=== PATIENT | female | born 1950 | race Caucasian/White ===

== ENCOUNTER 2023-04-15 17:21 | Inpatient (IN) ==
--- NOTE | 2023-04-15 18:02 | ED Triage Note ---
Date of Service April 15, 2023 Provider in Triage Author: Nancy Aponte History of Present Illness This patient was briefly evaluated while in triage. An abbreviated physical exam was performed. This patient is a 72-year-old Female who presents to the ED for evaluation of weakness. She states she has felt weak, lightheaded and dizzy. Her cousin states that she is not enunciating her words like usual. Symptoms started about 10 days ago. At that time she had collapsed and fallen. Her legs have been weak and she has a hard time walking. Physical Exam VITALS: Vitals are noted on the nurse's note and reviewed by myself. GENERAL: This is a 72-year-old female, sitting in a wheelchair in triage. HEART: Regular rate and rhythm without murmurs gallops or rubs. LUNGS: Clear to auscultation bilaterally without wheezes, rales or rhonchi. NEURO: Patient was alert and oriented to person place and time. Initial orders for labs and / or imaging were placed and patient was placed in the waiting area until a bed is available. Please see further documentation for the full ED course.
--- NOTE | 2023-04-15 18:58 | XRay Report ---
SINGLE VIEW CHEST CLINICAL HISTORY: Generalized weakness. FINDINGS: 2 AP upright chest radiographs are obtained. No prior studies are available for comparison at the time of dictation. The heart is enlarged noting atherosclerotic calcification of the thoracic aorta. The pulmonary vasculature is noncongested. There is mild bibasilar atelectasis. The lungs and pleural spaces are otherwise clear. No pneumothorax is seen. The skeletal structures are osteopenic. The bony thorax is grossly intact. IMPRESSION: Cardiomegaly with no active disease in the chest. ACT 112: Negative or not required by law. Electronically signed by: Alli Gibson M.D. 04/15/2023 6:57 PM
[2023-04-15 19:14] LABS: Basophils # (auto) 0.02 K/uL (0.00-0.20); Basophils % (auto) 0.3 %; Eosinophils # (auto) 0.08 K/uL (0.00-0.50); Eosinophils % (auto) 1.1 %; Hematocrit (blood only) 37.9 % (37.0-47.0); Hemoglobin 12.8 g/dl (12.0-16.0); Immature Granulocytes # (auto) 0.04 K/uL (0.01-0.20); Immature Granulocytes % (auto) 0.6 %; Lymphocytes # (auto) 1.04 K/uL (1.20-3.40); Lymphocytes % (auto) 14.9 %; Mean Corpuscular Hemoglobin 30.5 pg (25.0-34.0); Mean Corpuscular Hgb Conc 33.8 g/dL (32.0-36.0); Mean Corpuscular Volume 90.2 fL (80.0-100.0); Monocytes # (auto) 0.49 K/uL (0.11-0.59); Neutrophils # (auto) 5.32 K/uL (1.40-6.50); Neutrophils % (auto) 76.1 %; Platelet Count 180 K/uL (130-400); RDW Coefficient of Variation 12.9 % (11.5-14.5); RDW Standard Deviation 42.5 fL (36.4-46.3); White Blood Count 6.99 K/ul (4.8-10.8)
[2023-04-15 19:34] LABS: Alanine Aminotransferase 34 U/L (7-52); Albumin Globulin Ratio 1.2 (0.9-2); Albumin Level 4.1 gm/dl (3.4-5.0); Alkaline Phosphatase 91 U/L (34-104); Anion Gap 5 (3-11); Aspartate Aminotransferase 28 U/L (13-39); BUN Creatinine Ratio 56.5 (10-20); Bilirubin,Total 0.3 mg/dl (0.2-1.0); Blood Urea Nitrogen 26 mg/dl (6-23); Calcium 9.9 mg/dl (8.6-10.3); Carbon Dioxide 32 mmol/L (21-32); Chloride 103 mmol/L (98-107); Est GFR (African American) 115.2 ml/min; Est GFR (Non-African American) 99.4 ml/min; Globulin 3.4 gm/dl (2.5-4.0); Glucose 146 mg/dl (70-99(Fasting)); Potassium 4.1 mmol/L (3.5-5.1); Sodium 140 mmol/L (136-145); Total Protein 7.5 gm/dl (6.0-8.3)
--- NOTE | 2023-04-15 19:38 | CT Scan Report ---
CT SCAN OF THE BRAIN WITHOUT IV CONTRAST CLINICAL HISTORY: Generalized weakness. Slurred speech. COMPARISON STUDY: CT of the brain dated 06/29/2013. TECHNIQUE: Unenhanced axial CT scan of the brain is performed from the vertex to the skull base. A do se lowering technique was utilized adhering to the principles of ALARA. CT DOSE: 1250.21 mGy.cm FINDINGS: Brain parenchyma: Right MCA territory encephalomalacia is consistent with a remote insult. There is a ge-related involutional change noting mild subcortical and periventricular microangiopathic disease. There is no hemorrhage, mass effect, or evidence of acute territorial ischemia by CT criteria. Coon-w ally matter differentiation is preserved. No extra-axial fluid collection is seen. There is mineraliz ation of the basal ganglia. Ventricles, sulci, cisterns: Prominent secondary to involutional change. Intracranial vasculature: There is atherosclerotic calcification of the cavernous carotid and vertebr al arteries. Calvarium: Unremarkable. Sinuses and mastoids: There is complete opacification of the left sphenoid sinus. Thickening and scle rosis of the sinus wall indicates chronicity. The remaining visualized paranasal sinuses are clear. T he mastoid air cells are well pneumatized. Orbits: The bony orbits are grossly intact. There are bilateral ocular lens implants. IMPRESSION: 1. There is no hemorrhage, mass effect, or evidence of acute territorial ischemia by CT criteria. 2. Remote MCA territory infarct. ACT 112: Negative or not required by law. Electronically signed by: Alli Gibson M.D. 04/15/2023 7:35 PM
--- NOTE | 2023-04-15 19:42 | Emergency Department Note ---
Impression & Plan Weakness, Stroke-like symptom, Elevated troponin I level ED Provider Note NAME: MAXIMO KHAN AGE: 72 SEX: F : 1950 ARRIVES VIA: Walk-In INFORMANT: Patient, the patient's friend ED PROVIDER(S): Matheus Pino DO CHIEF COMPLAINT: Weakness HPI: The patient is a 72-year-old female who has a history of stroke who presented to the emergency department for an evaluation of generalized weakness. She has been noticing that she has been off balance. She seems to have weakness in her left arm which is new for her. She denies having any headache or falls. She denies having any chest pain or difficulty breathing at this time. The patient arrived via ambulance but she is visited by a friend who stays with her. According to the friend her speech does seem to be somewhat off. ROS: See above HPI for pertinent positives & negatives. A total of 10 systems reviewed and were otherwise negative. PAST MEDICAL HISTORY: See Below PAST SURGICAL HISTORY: See Below FAMILY HISTORY: See Below SOCIAL HISTORY: See Below HOME MEDICATIONS: See Below ALLERGIES: See Below VITALS: See Below PHYSICAL EXAMINATION: GENERAL: Patient is awake alert in no acute distress patient is resting comfortably and showing no signs of anxiety EYES: The conjunctivae are clear. The pupils are round and reactive. EARS, NOSE, MOUTH AND THROAT: The nose is without any evidence of any deformity. NECK: The neck is nontender and supple. RESPIRATORY: Normal respiratory effort is noted there is no evidence of wheezing rhonchi or rales CARDIOVASCULAR: Regular rate and rhythm noted there no murmurs rubs or gallops normal S1 normal S2. GASTROINTESTINAL: The abdomen is soft. Abdomen is nontender. MUSCULOSKELETAL/EXTREMITIES: There is no evidence of gross deformity full range of motion is noted in the hips and shoulders. SKIN: There is no obvious evidence of any rash. Pedal edema was noted bilaterally. NEUROLOGIC: Patient is awake alert and oriented x3. Speech was pressured but clear. Strength was symmetric but diminished in both legs. The patient has a drift in her left upper extremity but she does appear to have some chronic weakness in the right upper extremity with some spasticity. MEDICAL DECISION MAKING: The patient is a 72-year-old female who has a history of a stroke who presented to the emergency department with strokelike symptoms. She presented with a friend who was concerned because over the last week the patient's been having increasing difficulty ambulating. Because of her history she came to the emergency department for further workup. I discussed the patient's laboratory and radiographic studies with her. CT showed an old stroke but no acute intracranial pathology. Given her presentation as well as her previous stroke history and MRI was obtained. There is no definite signs of acute stroke noted on this imaging. The patient was found to have elevated troponin in the emergency department. This was repeated and appears to be elevating. She has no ischemic symptoms at this time. This may require further inpatient workup. For this reason I [facility] have agreed to evaluate the patient in the emergency department for further management and disposition. Triage Nursing notes reviewed. Prior medical records reviewed Vital Signs: reviewed and remarkable for elevated blood pressure. Differential diagnosis: Infection, dehydration, metabolic abnormality, hypo/hyperglycemia, electrolyte disturbance, anemia, hypoxia, cardiac sources, intracerebral event, toxicologic, neurologic, as well as other pathologies. ER treatment provided: See below Diagnostics interpreted by me: ECG: EKG was obtained in the emergency department. My interpretation is sinus rhythm at 58 bpm. There was a right bundle branch block pattern noted. There is no PVCs. This was compared to a tracing from June 29, 2013. No changes were noted. Cardiac Monitoring: An order was placed for continuous cardiac monitoring. The monitor shows a rate of 62 bpm with sinus rhythm. Laboratory studies: As stated above and show below. Imaging studies: See below. Radiographic imaging was reviewed by myself Consultation(s): I discussed this case with Dr. Alexandra who is [facility]. Past Med/Surg History Medical History CVA (cerebral vascular accident) Social History Smoking Status: Never smoker Preferred Language: Kazakh Feels Safe at Home: Yes Allergies Allergies Allergy/AdvReac Type Severity Reaction Status Date / Time No Known Allergies Allergy Verified 04/15/23 20:15 Home Meds Home Medications Medication Instructions Recorded Confirmed acetaminophen 325 mg tablet 650 mg PO Q4H PRN PAIN/FEVER 04/15/23 04/15/23 (Tylenol) aspirin 81 mg tablet,delayed 81 mg PO QAM 04/15/23 04/15/23 release levothyroxine 100 mcg tablet 100 mcg PO QAM 04/15/23 04/15/23 losartan 25 mg tablet 25 mg PO DAILY 04/15/23 04/15/23 omega-3 fatty acids 1,000 mg 1,000 mg PO BID 04/15/23 04/15/23 capsule simvastatin 20 mg tablet 20 mg PO HS 04/15/23 04/15/23 Results & Data (ED) Vital Signs Vital Signs - 24 hr 04/15/23 17:58 04/15/23 19:31 04/15/23 19:42 Temperature 30.0 C L Temperature Source Oral Pulse Rate 63 60 Pulse Rate [Apical] 62 Respiratory Rate 16 17 Respiratory Effort / Characteristics Non-Labored Spontaneous Respiratory Depth Normal Normal Blood Pressure 172/78 H Blood Pressure [Right Arm] 149/82 H Blood Pressure Mean 109 Blood Pressure Mean [Right Arm] 104 Blood Pressure Position [Right Arm] Semi-fowlers Pulse Oximetry 97 97 Oxygen Delivery Method Room Air Room Air Sepsis Recent Fever Within 48 Hours No Sepsis New/Unexplained Change in Mental Status No Sepsis Action Taken by Nursing No Action Required 04/15/23 21:00 04/15/23 23:26 Temperature Temperature Source Pulse Rate Pulse Rate [Apical] 55 L 62 Respiratory Rate 16 20 Respiratory Effort / Characteristics Respiratory Depth Normal Normal Blood Pressure Blood Pressure [Right Arm] 134/70 141/78 H Blood Pressure Mean Blood Pressure Mean [Right Arm] 91 99 Blood Pressure Position [Right Arm] Semi-fowlers Semi-fowlers Pulse Oximetry 99 98 Oxygen Delivery Method Room Air Room Air Sepsis Recent Fever Within 48 Hours Sepsis New/Unexplained Change in Mental Status Sepsis Action Taken by [facility] Medications Current Medication List: was personally reviewed by me Laboratory Data Attestation: I reviewed the patient's lab results. 04/15/23 18:30 04/15/23 18:30 Lab Results 04/15/23 04/15/23 04/15/23 Range/Units 18:30 19:25 22:02 WBC 6.99 (4.8-10.8) K/ul RBC 4.20 (4.20-5.40) M/uL Hgb 12.8 (12.0-16.0) g/dl Hct 37.9 (37.0-47.0) % MCV 90.2 (80.0-100.0) fL MCH 30.5 (25.0-34.0) pg MCHC 33.8 (32.0-36.0) g/dL RDW Std Deviation 42.5 (36.4-46.3) fL RDW Coeff of [place] 12.9 (11.5-14.5) % Plt Count 180 (130-400) K/uL MPV 10.0 (9.4-12.4) fL Immature Gran % (Auto) 0.6 % Neut % (Auto) 76.1 % Lymph % (Auto) 14.9 % Elbert % (Auto) 7.0 % Eos % (Auto) 1.1 % Baso % (Auto) 0.3 % Neut # (Auto) 5.32 (1.40-6.50) K/uL Lymph # (Auto) 1.04 L (1.20-3.40) K/uL Elbert # (Auto) 0.49 (0.11-0.59) K/uL Eos # (Auto) 0.08 (0.00-0.50) K/uL Baso # (Auto) 0.02 (0.00-0.20) K/uL Immature Gran # (Auto) 0.04 (0.01-0.20) K/uL Sodium 140 (136-145) mmol/L Potassium 4.1 (3.5-5.1) mmol/L Chloride 103 (98-107) mmol/L Carbon Dioxide 32 (21-32) mmol/L Anion Gap 5 (3-11) BUN 26 H (6-23) mg/dl Creatinine 0.46 L (0.6-1.2) mg/dl Est Cr Clr Drug Dosing Not Reportable Est GFR ( Amer) 115.2 ml/min Est GFR (Non-Af Amer) 99.4 ml/min BUN/Creatinine Ratio 56.5 H (10-20) Glucose 146 H (70-99(Fasting)) mg/dl Calcium 9.9 (8.6-10.3) mg/dl Total Bilirubin 0.3 (0.2-1.0) mg/dl AST 28 (13-39) U/L ALT 34 (7-52) U/L Alkaline Phosphatase 91 (34-104) U/L Troponin I High Sens 43.2 H 50.3 H* (0-14) pg/ml Total Protein 7.5 (6.0-8.3) gm/dl Albumin 4.1 (3.4-5.0) gm/dl Globulin 3.4 (2.5-4.0) gm/dl Albumin/Globulin Ratio 1.2 (0.9-2) Urine Color Yellow Urine Appearance Clear (Clear) Urine pH 6.0 (4.5-7.5) Ur Specific [place] 1.010 (1.000-1.030) Urine Protein Negative (Negative) Urine Glucose (UA) Negative (Negative) Urine Ketones Negative (Negative) Urine Blood Negative (Negative) Urine Nitrite Negative (Negative) Urine Bilirubin Negative (Negative) Urine Urobilinogen Negative (Negative) Ur Leukocyte Esterase Negative (Negative) Imaging Data Attestation: I personally reviewed and interpreted this imaging study as follows: My Impression: 1 view chest x-ray was obtained in the emergency department. My interpretation is no free air or definite infiltrate, final report below. CT of the brain was obtained in the emergency department. Previous stroke was noted with right-sided encephalomalacia, this was compared to her previous CT and the changes are new compared to the previous CT. Final report below Radiologist's Impression: Chest X-Ray 04/15/23 18:03 SINGLE VIEW CHEST CLINICAL HISTORY: Generalized weakness. FINDINGS: 2 AP upright chest radiographs are obtained. No prior studies are available for comparison at the time of dictation. The heart is enlarged noting atherosclerotic calcification of the thoracic aorta. The pulmonary vasculature is noncongested. There is mild bibasilar atelectasis. The lungs and pleural spaces are otherwise clear. No pneumothorax is seen. The skeletal structures are osteopenic. The bony thorax is grossly intact. IMPRESSION: Cardiomegaly with no active disease in the chest. ACT 112: Negative or not required by law. Electronically signed by: Alli Gibson M.D. 04/15/2023 6:[address] 04/15/23 18:03 CT SCAN OF THE BRAIN WITHOUT IV CONTRAST CLINICAL HISTORY: Generalized weakness. Slurred speech. COMPARISON STUDY: CT of the brain dated 06/29/2013. TECHNIQUE: Unenhanced axial CT scan of the brain is performed from the vertex to the skull base. A dose lowering technique was utilized adhering to the principles of ALARA. CT DOSE: 1250.21 mGy.cm FINDINGS: Brain parenchyma: Right MCA territory encephalomalacia is consistent with a remote insult. There is age-related involutional change noting mild subcortical and periventricular microangiopathic disease. There is no hemorrhage, mass effect, or evidence of acute territorial ischemia by CT criteria. Coon-white matter differentiation is preserved. No extra-axial fluid collection is seen. There is mineralization of the basal ganglia. Ventricles, sulci, cisterns: Prominent secondary to involutional change. Intracranial vasculature: There is atherosclerotic calcification of the cavernous carotid and vertebral arteries. Calvarium: Unremarkable. Sinuses and mastoids: There is complete opacification of the left sphenoid sinus. Thickening and sclerosis of the sinus wall indicates chronicity. The remaining visualized paranasal sinuses are clear. The mastoid air cells are well pneumatized. Orbits: The bony orbits are grossly intact. There are bilateral ocular lens implants. IMPRESSION: 1. There is no hemorrhage, mass effect, or evidence of acute territorial ischemia by CT criteria. 2. Remote MCA territory infarct. ACT 112: Negative or not required by law. Electronically signed by: Alli Gibson M.D. 04/15/2023 7:35 PM Brain MRI 04/15/23 21:38 MRI OF THE BRAIN WITHOUT IV CONTRAST CLINICAL HISTORY: Strokelike symptoms. Left-sided weakness. Change in speech. COMPARISON STUDY: CT of the brain dated 04/15/2023. TECHNIQUE: MRI of the brain was performed utilizing various T1 and T2-weighted sequences in the axial, sagittal, and coronal planes. IV contrast was not administered for this examination. FINDINGS: Brain parenchyma: Right MCA territory encephalomalacia is consistent with a remote infarct. There is age related involutional change noting mild subcortical and periventricular microangiopathic disease. There is no hemorrhage or mass effect. There is no restricted diffusion typical for acute ischemia. Coon-white matter differentiation is preserved. No extra-axial fluid collection is seen. The cerebellar tonsils are normal in configuration. Mineralization is noted in the basal ganglia. Ventricles, sulci, and cisterns: Prominent secondary to involutional change. Pituitary and sella: Partially empty sella is incidentally noted. Intracranial vasculature: Normal flow voids are maintained at the skull base. Orbits: The bony orbits are grossly intact. Orbital contents are normal in appearance noting bilateral ocular lens implants. Sinuses and mastoids: There is opacification of left sphenoid sinus. The remaining paranasal sinuses and the mastoid air cells are clear. Calvarium: Unremarkable. Cervical cord: Partially visualized cervical spinal cord is normal in morphology and signal intensity. IMPRESSION: Chronic changes as above with no acute intracranial abnormality identified. ACT 112: Negative or not required by law. Electronically signed by: Alli Gibson M.D. 04/15/2023 10:42 PM Discharge Plan Visit Data Chief Complaint: Weakness Stated Complaint: TROUBLE WALKING, LIGHTHEADED, WEAKNESS ED Provider: Matheus Pino Discharge Problem: Weakness, Stroke-like symptom, Elevated troponin I level Patient Disposition: Being Evaluated by Hospitalist Forms Stand Alone Forms: My [facility] Prescriptions Prescriptions: No Action acetaminophen [Tylenol] 325 mg Tablet 650 mg PO Q4H PRN (Reason: PAIN/FEVER) omega-3 fatty acids 1,000 mg Capsule 1,000 mg PO BID aspirin 81 mg tablet,delayed release (DR/EC) 81 mg PO QAM levothyroxine 100 mcg tablet 100 mcg PO QAM simvastatin 20 mg tablet 20 mg PO HS losartan 25 mg Tablet 25 mg PO DAILY Referrals Referrals: Bob Huynh [Primary Care Provider] -
[2023-04-15 19:48] LABS: Appearance Urine Clear (Clear); Bilirubin Urine Negative (Negative); Blood Urine Negative (Negative); Color Urine Yellow; Glucose Urine UA Negative (Negative); Ketones Urine Negative (Negative); Leukocyte Esterase Urine Negative (Negative); Nitrite Urine Negative (Negative); Protein Urine Negative (Negative); Urobilinogen Urine Negative (Negative)
[2023-04-15 20:48] LABS: Troponin I High Sensitivity 43.2 pg/ml (0-14)
--- NOTE | 2023-04-15 22:45 | Magnetic Resonance Report ---
MRI OF THE BRAIN WITHOUT IV CONTRAST CLINICAL HISTORY: Strokelike symptoms. Left-sided weakness. Change in speech. COMPARISON STUDY: CT of the brain dated 04/15/2023. TECHNIQUE: MRI of the brain was performed utilizing various T1 and T2-weighted sequences in the axial , sagittal, and coronal planes. IV contrast was not administered for this examination. FINDINGS: Brain parenchyma: Right MCA territory encephalomalacia is consistent with a remote infarct. There is age related involutional change noting mild subcortical and periventricular microangiopathic disease. There is no hemorrhage or mass effect. There is no restricted diffusion typical for acute ischemia. Coon-white matter differentiation is preserved. No extra-axial fluid collection is seen. The cerebell ar tonsils are normal in configuration. Mineralization is noted in the basal ganglia. Ventricles, sulci, and cisterns: Prominent secondary to involutional change. Pituitary and sella: Partially empty sella is incidentally noted. Intracranial vasculature: Normal flow voids are maintained at the skull base. Orbits: The bony orbits are grossly intact. Orbital contents are normal in appearance noting bilatera l ocular lens implants. Sinuses and mastoids: There is opacification of left sphenoid sinus. The remaining paranasal sinuses and the mastoid air cells are clear. Calvarium: Unremarkable. Cervical cord: Partially visualized cervical spinal cord is normal in morphology and signal intensity . IMPRESSION: Chronic changes as above with no acute intracranial abnormality identified. ACT 112: Negative or not required by law. Electronically signed by: Alli Gibson M.D. 04/15/2023 10:42 PM
[2023-04-16] MEDS ORDERED: POLYETHYLENE (MIRALAX) 17 GM PACK PO PRN (05:26)
[2023-04-16] MEDS ORDERED: PHARMACIST DISCHARGE MED REC CONSULT PRN (05:26)
[2023-04-16] MEDS ORDERED: ACETAMINOPHEN 325 MG TAB PO PRN (05:26)
[2023-04-16] MEDS ORDERED: NITROGLYCERIN SL 0.4 MG/TAB TAB SL PRN (05:26)
[2023-04-16] MEDS ORDERED: SODIUM CHLORIDE 0.9% 1,000 ML IV SCH (05:26)
--- NOTE | 2023-04-16 07:46 | History & Physical Report ---
Date of Service April 16, 2023 Assessment & Plan (1) Stroke-like symptom: Plan: 72-year-old female with past medical history significant for CVA, hypertension, hyperlipidemia, hypothyroidism comes because of weakness and not able to lift her right upper extremity for last few days. Arun Olsene she felt little dizzy and weak but that got improved. But again last few days having weakness and having difficulty lifting her right upper extremity. When she had a stroke she had weakness on the left side. She ambulates using cart. She thinks she was holding cart tightly with the right hand which is causing her current problem .denies any headache. Vision is okay. No runny nose or sore throat. No cough. No fevers. No chest pain or shortness of breath. No nausea. No abdominal pain. Normal bowel and bladder movements. Resting comfortably and h emodynamically stable. Right upper extremity weakness Ambulatory dysfunction CT head and MRI scan okay Consulted neurology for further recommendations PT OT Stroke protocol ordered History of CVA On aspirin and statin Hypothyroidism on Synthyroid Hypertension on losartan Lower EXTR edema Will follow echo Mild elevation of troponin Mostly demand ischemia Follow repeat cardiac enzymes and echo Prolonged QTc Avoid QT prolonging drugs Follow repeat EKG DVT prophylaxis SCDs for now Disposition Admission and Anticipated Discharge Date Admission Date: April 16, 2023 History of Present Illness Chief Complaint: Strokelike symptoms and weakness Primary Care Provider: Bob Huynh 72-year-old female with past medical history significant for CVA, hypertension, hyperlipidemia, hypothyroidism comes because of weakness and not able to lift her right upper extremity for last few days. Arun Wilkins she felt little dizzy and weak but that got improved. But again last few days having weakness and having difficulty lifting her right upper extremity. When she had a stroke she had weakness on the left side. She ambulates using cart. She thinks she was holding cart tightly with the right hand which is causing her current problem .denies any headache. Vision is okay. No runny nose or sore throat. No cough. No fevers. No chest pain or shortness of breath. No nausea. No abdominal pain. Normal bowel and bladder movements. Resting comfortably and hemodynamically stable. Past medical history. As mentioned above Past surgical history. Partial thyroidectomy. Ankle surgery. Cataracts Social history. No smoking. No alcohol use. No drug use. Family history. Mother had uterine cancer. Father had diabetes. Allergies Allergy/AdvReac Type Severity Reaction Status Date / Time No Known Allergies Allergy Verified 04/15/23 20:15 Home Medications Medication Instructions Recorded Confirmed Type acetaminophen 325 mg tablet 650 mg PO Q4H PRN PAIN/FEVER 04/15/23 04/15/23 History (Tylenol) aspirin 81 mg tablet,delayed 81 mg PO QAM 04/15/23 04/15/23 History release levothyroxine 100 mcg tablet 100 mcg PO QAM 04/15/23 04/15/23 History losartan 25 mg tablet 25 mg PO DAILY 04/15/23 04/15/23 History omega-3 fatty acids 1,000 mg 1,000 mg PO BID 04/15/23 04/15/23 History capsule simvastatin 20 mg tablet 20 mg PO HS 04/15/23 04/15/23 History Past Med/Surg History Medical History CVA (cerebral vascular accident) Social History Smoking Status: Never smoker Preferred Language: Lithuanian Feels Safe at Home: Yes Review of Systems Review of Systems: All systems reviewed & are unremarkable except as noted in HPI & below Physical Exam Physical Exam: General- Not in distress Head- atraumatic Eyes- PERRL, EOMI. ENT- oropharynx clear Neck- supple, no JVD. Lungs- clear to auscultation no wheezing or crackles. Heart- regular rhythm; Murmur in mitral area, no gallop. Abdomen- normal bowel sounds, soft, nontender, no distension Extremities- lower extremity edema present, no erythema seen Neuro- alert, oriented x 3; PERRL, EOMI; no facial palsy; no dysarthria; power 4/5 in right upper extremity 5/5 in left upper extremity, 3-4/5 in lower extremities.; sensations intact. Skin- warm & dry Results & Data Results & Data Vital Signs (Past 12 Hours) Vital Signs Pulse Pulse Resp BP Pulse Ox Pulse Ox O2 Del Method 04/16/23 07:05 62 04/16/23 06:00 54 L 16 105/58 L 97 Room Air 04/16/23 05:26 98 04/16/23 05:00 60 16 137/76 98 Room Air 04/16/23 03:32 97 Room Air 04/16/23 03:32 60 16 132/71 97 Room Air 04/16/23 03:32 62 04/16/23 01:00 58 L 18 149/86 H 97 Room Air 04/15/23 23:26 62 20 141/78 H 98 Room Air 04/15/23 21:00 55 L 16 134/70 99 Room Air 04/15/23 19:42 62 17 149/82 H 97 Room Air O2 Del Method O2 Flow Rate 04/16/23 07:05 04/16/23 06:00 04/16/23 05:26 Room Air 04/16/23 05:00 04/16/23 03:32 0 04/16/23 03:32 04/16/23 03:32 04/16/23 01:00 04/15/23 23:26 04/15/23 21:00 04/15/23 19:42 Diagnostic Findings Laboratory Results WBC 6.99 K/ul (4.8-10.8) 04/15/23 18:30 RBC 4.20 M/uL (4.20-5.40) 04/15/23 18:30 Hgb 12.8 g/dl (12.0-16.0) 04/15/23 18:30 Hct 37.9 % (37.0-47.0) 04/15/23 18:30 MCV 90.2 fL (80.0-100.0) 04/15/23 18:30 MCH 30.5 pg (25.0-34.0) 04/15/23 18:30 MCHC 33.8 g/dL (32.0-36.0) 04/15/23 18:30 RDW Std Deviation 42.5 fL (36.4-46.3) 04/15/23 18:30 RDW Coeff of [place]ul[place] 12.9 % (11.5-14.5) 04/15/23 18:30 Plt Count 180 K/uL (130-400) 04/15/23 18:30 MPV 10.0 fL (9.4-12.4) 04/15/23 18:30 Immature Gran % (Auto) 0.6 % 04/15/23 18:30 Neut % (Auto) 76.1 % 04/15/23 18:30 Lymph % (Auto) 14.9 % 04/15/23 18:30 Dunn % (Auto) 7.0 % 04/15/23 18:30 Eos % (Auto) 1.1 % 04/15/23 18:30 Baso % (Auto) 0.3 % 04/15/23 18:30 Neut # (Auto) 5.32 K/uL (1.40-6.50) 04/15/23 18:30 Lymph # (Auto) 1.04 K/uL (1.20-3.40) L 04/15/23 18:30 Dunn # (Auto) 0.49 K/uL (0.11-0.59) 04/15/23 18:30 Eos # (Auto) 0.08 K/uL (0.00-0.50) 04/15/23 18:30 Baso # (Auto) 0.02 K/uL (0.00-0.20) 04/15/23 18:30 Immature Gran # (Auto) 0.04 K/uL (0.01-0.20) 04/15/23 18:30 Sodium 140 mmol/L (136-145) 04/15/23 18:30 Potassium 4.1 mmol/L (3.5-5.1) 04/15/23 18:30 Chloride 103 mmol/L (98-107) 04/15/23 18:30 Carbon Dioxide 32 mmol/L (21-32) 04/15/23 18:30 Anion Gap 5 (3-11) 04/15/23 18:30 BUN 26 mg/dl (6-23) H 04/15/23 18:30 Creatinine 0.46 mg/dl (0.6-1.2) L 04/15/23 18:30 Est Cr Clr Drug Dosing Not Reportable 04/15/23 18:30 Est GFR ( Amer) 115.2 ml/min 04/15/23 18:30 Est GFR (Non-Af Amer) 99.4 ml/min 04/15/23 18:30 BUN/Creatinine Ratio 56.5 (10-20) H 04/15/23 18:30 Glucose 146 mg/dl (70-99(Fasting)) H 04/15/23 18:30 Calcium 9.9 mg/dl (8.6-10.3) 04/15/23 18:30 Total Bilirubin 0.3 mg/dl (0.2-1.0) 04/15/23 18:30 AST 28 U/L (13-39) 04/15/23 18:30 ALT 34 U/L (7-52) 04/15/23 18:30 Alkaline Phosphatase 91 U/L (34-104) 04/15/23 18:30 Troponin I High Sens 50.3 pg/ml (0-14) H* 04/15/23 22:02 Total Protein 7.5 gm/dl (6.0-8.3) 04/15/23 18:30 Albumin 4.1 gm/dl (3.4-5.0) 04/15/23 18: Globulin 3.4 gm/dl (2.5-4.0) 04/15/23 18: Albumin/Globulin Ratio 1.2 (0.9-2) 04/15/23 18:30 Urine Color Yellow 04/15/23 19:25 Urine Appearance Clear (Clear) 04/15/23 19:25 Urine pH 6.0 (4.5-7.5) 04/15/23 19:25 Ur Specific [place] 1.010 (1.000-1.030) 04/15/23 19:25 Urine Protein Negative (Negative) 04/15/23 19: Urine Glucose (UA) Negative (Negative) 04/15/23 19:25 Urine Ketones Negative (Negative) 04/15/23 19:25 Urine Blood Negative (Negative) 04/15/23 19:25 Urine Nitrite Negative (Negative) 04/15/23 19:25 Urine Bilirubin Negative (Negative) 04/15/23 19:25 Urine Urobilinogen Negative (Negative) 04/15/23 19:25 Ur Leukocyte Esterase Negative (Negative) 04/15/23 19:25 Impressions Chest X-Ray 04/15/23 18:03 SINGLE VIEW CHEST CLINICAL HISTORY: Generalized weakness. FINDINGS: 2 AP upright chest radiographs are obtained. No prior studies are available for comparison at the time of dictation. The heart is enlarged noting atherosclerotic calcification of the thoracic aorta. The pulmonary vasculature is noncongested. There is mild bibasilar atelectasis. The lungs and pleural spaces are otherwise clear. No pneumothorax is seen. The skeletal structures are osteopenic. The bony thorax is grossly intact. IMPRESSION: Cardiomegaly with no active disease in the chest. ACT 112: Negative or not required by law. Electronically signed by: Alli Gibson M.D. 04/15/2023 6:[address] 04/15/23 18:03 CT SCAN OF THE BRAIN WITHOUT IV CONTRAST CLINICAL HISTORY: Generalized weakness. Slurred speech. COMPARISON STUDY: CT of the brain dated 06/29/2013. TECHNIQUE: Unenhanced axial CT scan of the brain is performed from the vertex to the skull base. A dose lowering technique was utilized adhering to the principles of ALARA. CT DOSE: 1250.21 mGy.cm FINDINGS: Brain parenchyma: Right MCA territory encephalomalacia is consistent with a remote insult. There is age-related involutional change noting mild subcortical and periventricular microangiopathic disease. There is no hemorrhage, mass effect, or evidence of acute territorial ischemia by CT criteria. Coon-white matter differentiation is preserved. No extra-axial fluid collection is seen. There is mineralization of the basal ganglia. Ventricles, sulci, cisterns: Prominent secondary to involutional change. Intracranial vasculature: There is atherosclerotic calcification of the cavernous carotid and vertebral arteries. Calvarium: Unremarkable. Sinuses and mastoids: There is complete opacification of the left sphenoid sinus. Thickening and sclerosis of the sinus wall indicates chronicity. The remaining visualized paranasal sinuses are clear. The mastoid air cells are well pneumatized. Orbits: The bony orbits are grossly intact. There are bilateral ocular lens implants. IMPRESSION: 1. There is no hemorrhage, mass effect, or evidence of acute territorial ischemia by CT criteria. 2. Remote MCA territory infarct. ACT 112: Negative or not required by law. Electronically signed by: Alli Gibson M.D. 04/15/2023 7:35 PM Brain MRI 04/15/23 21:38 MRI OF THE BRAIN WITHOUT IV CONTRAST CLINICAL HISTORY: Strokelike symptoms. Left-sided weakness. Change in speech. COMPARISON STUDY: CT of the brain dated 04/15/2023. TECHNIQUE: MRI of the brain was performed utilizing various T1 and T2-weighted sequences in the axial, sagittal, and coronal planes. IV contrast was not administered for this examination. FINDINGS: Brain parenchyma: Right MCA territory encephalomalacia is consistent with a remote infarct. There is age related involutional change noting mild subcortical and periventricular microangiopathic disease. There is no hemorrhage or mass effect. There is no restricted diffusion typical for acute ischemia. Coon-white matter differentiation is preserved. No extra-axial fluid collection is seen. The cerebellar tonsils are normal in configuration. Mineralization is noted in the basal ganglia. Ventricles, sulci, and cisterns: Prominent secondary to involutional change. Pituitary and sella: Partially empty sella is incidentally noted. Intracranial vasculature: Normal flow voids are maintained at the skull base. Orbits: The bony orbits are grossly intact. Orbital contents are normal in appearance noting bilateral ocular lens implants. Sinuses and mastoids: There is opacification of left sphenoid sinus. The remaining paranasal sinuses and the mastoid air cells are clear. Calvarium: Unremarkable. Cervical cord: Partially visualized cervical spinal cord is normal in morphology and signal intensity. IMPRESSION: Chronic changes as above with no acute intracranial abnormality identified. ACT 112: Negative or not required by law. Electronically signed by: Alli Gibson M.D. 04/15/2023 10:42 PM ECG Additional Comments: ECG. Sinus bradycardia rate of 58. Right bundle branch block. QTc of 500. Code Status & VTE Plan VTE Prophylaxis Plan VTE Prophylaxis will be ordered: Yes
[2023-04-16] MEDS ORDERED: INFLUENZA VACCINE HIGH-DOSE (HD-IIV4) PF 65+ 0.7mL SYR IM ONE (07:54)
[2023-04-16] MEDS: LEVOTHYROXINE SODIUM 100 MCG TABLET PO SCH (07:55)
[2023-04-16] MEDS: ASPIRIN 81 MG ECTAB PO SCH (09:09)
--- NOTE | 2023-04-16 12:13 | Neurology Consultation ---
Date of Consultation April 16, 2023 Assessment & Plan (1) Axillary nerve injury: Pattern of weakness with first 20 deg weakness of deltoid suggests axillary nerve injury. She has extensive bruising of the axilla which would suggest a traumatic cause though there is no pain. Cervical spine cause without pain or radicular symptoms is less likely. -- Trauma evaluation, consider shoulder x-ray, consider cervical spine evaluation -- EMG in 6 weeks if weakness does not improve Telehealth Consultation Telehealth Information Telehealth Information: I performed this visit using a real-time telehealth connection between my location and the patients location ([facility]). After connecting through interactive tele-video, patient was identified by name and date of and/or wristband check.Patient (or authorized healthcare sales representative aircraft) was informed that this was a telemedicine visit and it was being conducted confidentially over secure lines. My office door was closed and no one else was present in the room with me.Patient (or authorized healthcare sales representative aircraft) provided consent to proceed with the visit, expressed an understanding of privacy and security of the telemedicine visit, and gave permission to have a hospital sales representative aircraft in the room in order to assist with the visit and to conduct portions of the visit, as needed. I informed the patient (or authorized healthcare sales representative aircraft) that I reviewed their record and presented the opportunity for them to ask any questions regarding the visit today. The patient agreed to participate. History of Present Illness Reason for Consultation: R arm weakness Requesting Physician: Dr. Howard Attending Physician: Jose Howard MD History of Present Illness Nadja Silva is a 72 yo F presenting with R arm weakness noticed a few days ago. The patient reports that she fell on but does not think she injured her arm. She reports using a shopping cart to walk around her home and thought that might have been what caused her arm to be weak. She was unaware she has bruising under her R arm and can not recall what that was from. She does have a history of a stroke in the past affecting her L side. She denies any pain in the R arm and no weakness of the hand. She otherwise does not recall dislocating the arm or any abnormal sleeping positions. Allergies Allergy/AdvReac Type Severity Reaction Status Date / Time No Known Allergies Allergy Verified 04/15/23 20:15 Home Medications Medication Instructions Recorded Confirmed Type acetaminophen 325 mg tablet 650 mg PO Q4H PRN PAIN/FEVER 04/15/23 04/15/23 History (Tylenol) aspirin 81 mg tablet,delayed 81 mg PO QAM 04/15/23 04/15/23 History release levothyroxine 100 mcg tablet 100 mcg PO QAM 04/15/23 04/15/23 History losartan 25 mg tablet 25 mg PO DAILY 04/15/23 04/15/23 History omega-3 fatty acids 1,000 mg 1,000 mg PO BID 04/15/23 04/15/23 History capsule simvastatin 20 mg tablet 20 mg PO HS 04/15/23 04/15/23 History Patient History Medical History CVA (cerebral vascular accident) Social History Smoking Status: Never smoker Hx Alcohol Use: No Hx Substance Use: No Preferred Language: French Communication Ability: Effective 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 Review of Systems +R arm weakness Physical Exam Neurological Examination: Mental Status: Awake and alert. Oriented to person, place, and time. Fluent. Comprehension intact. Affect appropriate. Cranial Nerves: II: pupils 3/3 to 2/2, clay grossly intact. III/IV/: Versions intact without nystagmus, no gaze preference. VII: Facial expression symmetric Motor: R arm deltoid weakness, able to maintain R arm antigravity when raised above the first 20 deg ROM. Otherwise strength normal. Sensory: Sensation to light touch was intact. Results & Data Vital Signs (Past 12 Hours) Vital Signs Temp Pulse Pulse Resp BP Pulse Ox Pulse Ox 04/16/23 11:10 36.4 C L 62 19 131/77 95 04/16/23 10:00 65 18 103/56 L 94 04/16/23 07:30 35.5 C L 73 18 95/65 L 99 04/16/23 07:05 62 04/16/23 06:00 54 L 16 105/58 L 97 01/06/24 05:26 98 04/16/23 05:00 60 16 137/76 98 04/16/23 03:32 97 04/16/23 03:32 60 16 132/71 97 04/16/23 03:32 62 04/16/23 01:00 58 L 18 149/86 H 97 O2 Del Method O2 Del Method O2 Flow Rate 04/16/23 11:10 Room Air 04/16/23 10:00 Room Air 04/16/23 07:30 Room Air 04/16/23 07:05 04/16/23 06:00 Room Air 04/16/23 05:26 Room Air 04/16/23 05:00 Room Air 04/16/23 03:32 Room Air 0 04/16/23 03:32 Room Air 04/16/23 03:32 04/16/23 01:00 Room Air Laboratory Results Abnormal lab results 04/15/23 04/15/23 04/16/23 Range/Units 18:30 22:02 08:28 Lymph # (Auto) 1.04 L (1.20-3.40) K/uL BUN 26 H (6-23) mg/dl Creatinine 0.46 L (0.6-1.2) mg/dl BUN/Creatinine Ratio 56.5 H (10-20) Glucose 146 H (70-99(Fasting)) mg/dl Troponin I High Sens 43.2 H 50.3 H* 75.2 H* D (0-14) pg/ml Diagnostic Findings Chest X-Ray 04/15/23 18:03 SINGLE VIEW CHEST CLINICAL HISTORY: Generalized weakness. FINDINGS: 2 AP upright chest radiographs are obtained. No prior studies are available for comparison at the time of dictation. The heart is enlarged noting atherosclerotic calcification of the thoracic aorta. The pulmonary vasculature is noncongested. There is mild bibasilar atelectasis. The lungs and pleural spaces are otherwise clear. No pneumothorax is seen. The skeletal structures are osteopenic. The bony thorax is grossly intact. IMPRESSION: Cardiomegaly with no active disease in the chest. ACT 112: Negative or not required by law. Electronically signed by: Alli Gibson M.D. 04/15/2023 6:[address] 04/15/23 18:03 CT SCAN OF THE BRAIN WITHOUT IV CONTRAST CLINICAL HISTORY: Generalized weakness. Slurred speech. COMPARISON STUDY: CT of the brain dated 06/29/2013. TECHNIQUE: Unenhanced axial CT scan of the brain is performed from the vertex to the skull base. A dose lowering technique was utilized adhering to the principles of ALARA. CT DOSE: 1250.21 mGy.cm FINDINGS: Brain parenchyma: Right MCA territory encephalomalacia is consistent with a remote insult. There is age-related involutional change noting mild subcortical and periventricular microangiopathic disease. There is no hemorrhage, mass effect, or evidence of acute territorial ischemia by CT criteria. Coon-white matter differentiation is preserved. No extra-axial fluid collection is seen. There is mineralization of the basal ganglia. Ventricles, sulci, cisterns: Prominent secondary to involutional change. Intracranial vasculature: There is atherosclerotic calcification of the cavernous carotid and vertebral arteries. Calvarium: Unremarkable. Sinuses and mastoids: There is complete opacification of the left sphenoid sinus. Thickening and sclerosis of the sinus wall indicates chronicity. The remaining visualized paranasal sinuses are clear. The mastoid air cells are well pneumatized. Orbits: The bony orbits are grossly intact. There are bilateral ocular lens implants. IMPRESSION: 1. There is no hemorrhage, mass effect, or evidence of acute territorial ischemia by CT criteria. 2. Remote MCA territory infarct. ACT 112: Negative or not required by law. Electronically signed by: Alli Gibson M.D. 04/15/2023 7:35 PM Brain MRI 04/15/23 21:38 MRI OF THE BRAIN WITHOUT IV CONTRAST CLINICAL HISTORY: Strokelike symptoms. Left-sided weakness. Change in speech. COMPARISON STUDY: CT of the brain dated 04/15/2023. TECHNIQUE: MRI of the brain was performed utilizing various T1 and T2-weighted sequences in the axial, sagittal, and coronal planes. IV contrast was not administered for this examination. FINDINGS: Brain parenchyma: Right MCA territory encephalomalacia is consistent with a remote infarct. There is age related involutional change noting mild subcortical and periventricular microangiopathic disease. There is no hemorrhage or mass effect. There is no restricted diffusion typical for acute ischemia. Coon-white matter differentiation is preserved. No extra-axial fluid collection is seen. The cerebellar tonsils are normal in configuration. Mineralization is noted in the basal ganglia. Ventricles, sulci, and cisterns: Prominent secondary to involutional change. Pituitary and sella: Partially empty sella is incidentally noted. Intracranial vasculature: Normal flow voids are maintained at the skull base. Orbits: The bony orbits are grossly intact. Orbital contents are normal in appearance noting bilateral ocular lens implants. Sinuses and mastoids: There is opacification of left sphenoid sinus. The remaining paranasal sinuses and the mastoid air cells are clear. Calvarium: Unremarkable. Cervical cord: Partially visualized cervical spinal cord is normal in morphology and signal intensity. IMPRESSION: Chronic changes as above with no acute intracranial abnormality identified. ACT 112: Negative or not required by law. Electronically signed by: Alli Gibson M.D. 04/15/2023 10:42 PM
--- NOTE | 2023-04-16 13:28 | XRay Report ---
XR shoulder RT min 2V routine CLINICAL HISTORY: fall, unable to lift R arm COMPARISON: None FINDINGS: Alignment of the right acromioclavicular and glenohumeral joints is anatomic. There is no acute fracture. No osseous lesions. 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 There is mild to moderate glenohumeral joint osteoarthritis. There is mild elevation of the rig ht humeral head. IMPRESSION: 1. No fracture or dislocation within the right shoulder. 2. Moderate degenerative changes within the right shoulder. 3. Mild elevation the right humeral head with narrowing of the subacromial space. This is likely due to a chronic rotator cuff tear. ACT 112: Negative or not required by law. Electronically signed by: Ras Bear M.D. 04/16/2023 1:27 PM
--- NOTE | 2023-04-16 16:09 | Cardiology Consultation ---
Date of Consultation April 16, 2023 Assessment & Plan (1) Elevated troponin I level: (2) Abnormal EKG: The patient does not have any symptoms suggestive of angina or congestive heart failure, and I do not think the mild elevation in the high-sensitivity troponin (43--> 50--> 75--> 70 PG per mL) represents an acute coronary syndrome. The patient send EKG is performed on 04/15/2023 reveals sinus bradycardia with a right bundle branch block. She does have a prior EKG dating back to 2013 within the [place] health record that also demonstrates a similar right bundle branch block. The present tracing performed yesterday and again today raises concerns for possible lateral infarct pattern with negative QRS axis of lead I and aVL , however per comparison with a 2014 tracing it does not appear like this has changed significantly. The patient's echocardiogram reveals moderate concentric left ventricular hypertrophy with LVEF in the range of 65 to 70% (normal to hyperdynamic) with mild left atrial dilatation, moderate mitral annular calcification, noted mild dilatation of the right ventricle with normal RV systolic function. Grade 2 diastolic dysfunction noted. No interatrial shunt detected with the administration of agitated saline contrast. Patient is already been assessed by neurology. Initially patient did not mention any history of recent trauma or injury, but she does now state that she had a fall episode on 04/03/2023. Not certain how reliable of a historian she is, as I have the feeling that she is confabulating to some degree. X-ray of the shoulder has been performed which reveals no fracture or dislocation within the right shoulder with noted degenerative changes per the radiology report, as well as mild elevation of the right humeral head with narrowing of the subacromial space would be consistent with a chronic rotator cuff tear. The patient presents most recent cholesterol available on file was an LDL level of 46 mg/dL in December,. At present recommend her chronic treatment with aspirin 81 mg daily and simvastatin 20 mg daily. Recommend ongoing observation. History of Present Illness Attending Physician: Jose Howard MD History of Present Illness Nadja Silva is a 72-year-old female seen in cardiology consultation per the request of Dr. Howard for the evaluation of elevation in the high sensitivity troponin and abnormal EKG. Patient describes to me that she presented to the emergency department because of symptoms of lightheadedness and dizziness. She denies any recent chest discomfort or shortness of breath. She believes that she "stumbled" on [place] [address] and fell. She does not recall thinking that she injured her right arm, but in retrospect she thinks that maybe she did. She has difficulty moving her right arm especially the motion of abduction. Past Medical History: Patient's primary care provider is Dr. Huynh in [place] there are no cardiology records available for review within her [facility] chart or [facility] record with the exception of an EKG performed in 2013 at [place] Patient describes having initially presented to [facility] with a stroke episode with symptoms of left-sided weakness in 2013 and was transferred to [facility]. Her medications she is treated for hypertension and dyslipidemia as an outpatient. Has past history of coronary heart disease. Allergies Allergy/AdvReac Type Severity Reaction Status Date / Time No Known Allergies Allergy Verified 04/15/23 20:15 Home Medications Medication Instructions Recorded Confirmed Type acetaminophen 325 mg tablet 650 mg PO Q4H PRN PAIN/FEVER 04/15/23 04/15/23 History (Tylenol) aspirin 81 mg tablet,delayed 81 mg PO QAM 04/15/23 04/15/23 History release levothyroxine 100 mcg tablet 100 mcg PO QAM 04/15/23 04/15/23 History losartan 25 mg tablet 25 mg PO DAILY 04/15/23 04/15/23 History omega-3 fatty acids 1,000 mg 1,000 mg PO BID 04/15/23 04/15/23 History capsule simvastatin 20 mg tablet 20 mg PO HS 04/15/23 04/15/23 History Patient History Medical History CVA (cerebral vascular accident) Social History Smoking Status: Never smoker Hx Alcohol Use: No Hx Substance Use: No Preferred Language: Azeri Communication Ability: Effective Bonding Equipment Operator Required: No Beliefs That Will Affect Care: None Current Living Situation: Alone Other Information That Helps Us Care for You: No Feels Safe at Home: Yes Safety Concerns: Feels Safe At This Time Assistive Devices: Other Assistive Devices Comment: States she uses a shopping cart in the house to get around. Review of Systems Review of Systems: All systems reviewed & are unremarkable except as noted in HPI & below Physical Exam Constitutional: WD/WN, vitals as above Respiratory: normal respiratory effort, lungs clear to auscultation Cardiovascular: RRR, no murmur, no edema Gastrointestinal (Abdomen): normal bowel sounds, soft, nontender, no hepatosplenomegaly Neurologic: With noted right upper extremity weakness Results & Data Vital Signs (Past 12 Hours) Vital Signs Temp Pulse Pulse Resp BP Pulse Ox Pulse Ox 04/16/23 13:59 72 19 150/85 H 96 04/16/23 11:10 36.4 C L 62 19 131/77 95 04/16/23 10:00 65 18 103/56 L 94 04/16/23 07:30 35.5 C L 73 18 95/65 L 99 04/16/23 07:05 62 04/16/23 06:00 54 L 16 105/58 L 97 04/16/23 05:26 98 04/16/23 05:00 60 16 137/76 98 O2 Del Method O2 Del Method 04/16/23 13:59 Room Air 04/16/23 11:10 Room Air 04/16/23 10:00 Room Air 04/16/23 07:30 Room Air 04/16/23 07:05 04/16/23 06:00 Room Air 04/16/23 05:26 Room Air 04/16/23 05:00 Room Air Laboratory Results Cardiac Enzymes 04/15/23 04/15/23 04/16/23 Range/Units 18:30 22:02 08:28 AST 28 (13-39) U/L Troponin I High Sens 43.2 H 50.3 H* 75.2 H* D (0-14) pg/ml 04/16/23 Range/Units 14:45 AST (13-39) U/L Troponin I High Sens 70.3 H* (0-14) pg/ml CBC 04/15/23 Range/Units 18:30 WBC 6.99 (4.8-10.8) K/ul RBC 4.20 (4.20-5.40) M/uL Hgb 12.8 (12.0-16.0) g/dl Hct 37.9 (37.0-47.0) % Plt Count 180 (130-400) K/uL Neut # (Auto) 5.32 (1.40-6.50) K/uL Lymph # (Auto) 1.04 L (1.20-3.40) K/uL [place] # (Auto) 0.49 (0.11-0.59) K/uL Eos # (Auto) 0.08 (0.00-0.50) K/uL Baso # (Auto) 0.02 (0.00-0.20) K/uL Comprehensive Metabolic Panel 04/15/23 Range/Units 18:30 Sodium 140 (136-145) mmol/L Potassium 4.1 (3.5-5.1) mmol/L Chloride 103 (98-107) mmol/L Carbon Dioxide 32 (21-32) mmol/L BUN 26 H (6-23) mg/dl Creatinine 0.46 L (0.6-1.2) mg/dl Glucose 146 H (70-99(Fasting)) mg/dl Calcium 9.9 (8.6-10.3) mg/dl AST 28 (13-39) U/L ALT 34 (7-52) U/L Alkaline Phosphatase 91 (34-104) U/L Total Protein 7.5 (6.0-8.3) gm/dl Albumin 4.1 (3.4-5.0) gm/dl Intake and Output 04/16/23 04/16/23 04/16/23 06:59 14:59 22:59 Intake Total 300 / 300 Output Total 400 / 400 Balance -100 / -100 Intake: Oral 300 / 300 Output: Urine Amount (Catheter) 400 / 400 External 400 / 400 Other: Weight 80.4 kg Weight Measurement Method Built in [facility] Patient Weight 04/17/23 06:59 Weight 80.[address] of brain performed 04/15/2023 revealed evidence of past right middle cerebral artery territory stroke with encephalomalacia without acute findings MRI of the brain, radiology report dated 04/15/2023 describes right middle cerebral artery territory encephalomalacia consistent with remote infarct.
[2023-04-16] MEDS: SIMVASTATIN 20 MG TAB PO SCH (20:10)
[2023-04-17] MEDS: LEVOTHYROXINE SODIUM 100 MCG TABLET PO SCH (06:02)
[2023-04-17 07:19] LABS: Basophils # (auto) 0.02 K/uL (0.00-0.20); Basophils % (auto) 0.3 %; Eosinophils # (auto) 0.13 K/uL (0.00-0.50); Eosinophils % (auto) 2.1 %; Immature Granulocytes # (auto) 0.02 K/uL (0.01-0.20); Immature Granulocytes % (auto) 0.3 %; Lymphocytes # (auto) 1.13 K/uL (1.20-3.40); Lymphocytes % (auto) 18.6 %; Mean Corpuscular Hemoglobin 30.5 pg (25.0-34.0); Mean Corpuscular Hgb Conc 33.3 g/dL (32.0-36.0); Mean Corpuscular Volume 91.6 fL (80.0-100.0); Mean Platelet Volume 9.9 fL (9.4-12.4); Monocytes # (auto) 0.51 K/uL (0.11-0.59); Monocytes % (auto) 8.4 %; Neutrophils # (auto) 4.26 K/uL (1.40-6.50); Neutrophils % (auto) 70.3 %; Platelet Count 164 K/uL (130-400); RDW Coefficient of Variation 13.3 % (11.5-14.5); RDW Standard Deviation 44.4 fL (36.4-46.3); Red Blood Count 3.93 M/uL (4.20-5.40); White Blood Count 6.07 K/ul (4.8-10.8)
[2023-04-17 07:32] LABS: BUN Creatinine Ratio 29.6 (10-20); Calcium 9.2 mg/dl (8.6-10.3); Chol HDL Ratio 1.7 (0-5); Creatinine Clr Calc Pharmacy 99.8 ml/min; Est GFR (African American) 109.3 ml/min; Est GFR (Non-African American) 94.3 ml/min; Magnesium 1.6 mg/dl (1.7-2.4); Phosphorus 3.9 mg/dl (2.5-4.9); Potassium 4.5 mmol/L (3.5-5.1)
[2023-04-17] MEDS: ASPIRIN 81 MG ECTAB PO SCH (09:03)
--- NOTE | 2023-04-17 13:17 | Cardiology Progress Note ---
Date of Service April 17, 2023 Assessment & Plan (1) Elevated troponin I level: (2) Abnormal EKG: Plan: Presentation not suggestive of acute coronary syndrome. Continue outpatient treatment aspirin, losartan, simvastatin. No further cardiac testing felt to be indicated at this time. Admission and Anticipated Discharge Date Admission Date: April 16, 2023 Subjective Patient seen in cardiology follow-up. Due to no acute complaints. She seems to be using her right arm regularly today than yesterday. Telemetry reveals sinus rhythm in the 60s. Physical Exam Constitutional: WD/WN, vitals as above Respiratory: normal respiratory effort, lungs clear to auscultation Cardiovascular: RRR, no murmur, no edema Gastrointestinal (Abdomen): normal bowel sounds, soft, nontender, no hepatosplenomegaly Results & Data Vital Signs (Past 12 Hours) Vital Signs Temp Pulse Pulse Resp BP Pulse Ox O2 Del Method 04/17/23 12:31 36.4 C L 77 16 119/74 94 Room Air 04/17/23 07:17 36.4 C L 76 16 117/86 93 Room Air 04/17/23 07:07 75 04/17/23 03:59 36.5 C 74 19 144/77 H 96 Room Air
[2023-04-17] MEDS ORDERED: MAGNESIUM OXIDE 400 MG TAB PO ONE (13:18)
--- NOTE | 2023-04-17 16:18 | Hospitalist Progress Note ---
Date of Service April 17, 2023 Assessment & Plan (1) Stroke-like symptom: Plan: 72 to F with past medical history significant for CVA, hypertension, hyperlipidemia, hypothyroidism comes because of weakness and not able to lift her right upper extremity for last few days. Arun Wilkins she felt little dizzy and weak but that got improved. But again last few days having weakness and having difficulty lifting her right upper extremity. When she had a stroke she had weakness on the left side. She ambulates using cart. Right upper extremity weakness Ambulatory dysfunction Stroke protocol ordered CT head and MRI w/o cva PT OT Consulted neurology for further recommendations - Axillary nerve injury: Pattern of weakness with first 20 deg weakness of deltoid suggests axillary nerve injury. She has extensive bruising of the axilla which would suggest a traumatic cause though there is no pain. Cervical spine cause without pain or radicular symptoms is less likely. -- Trauma evaluation, consider shoulder x-ray, consider cervical spine evaluation -- EMG in 6 weeks if weakness does not improve Shoulder XR - 1. No fracture or dislocation within the right shoulder. 2. Moderate degenerative changes within the right shoulder. 3. Mild elevation the right humeral head with narrowing of the subacromial space. This is likely due to a chronic rotator cuff tear. History of CVA On aspirin and statin Hypothyroidism on Synthyroid Hypertension on losartan Lower EXTR edema echo obtained, reviewed -edema improved Elevation of troponin abnormal ecg Mostly demand ischemia Echo obtained -moderate concentric LVH. LV wall motion is normal. LVEF 65 to 70%. LA is mildly dilated. There is moderate mitral annular calcification. There is mild tricuspid regurg. RV is mildly dilated with normal RV systolic function. Diastolic dysfunction, grade 2. No interatrial shunt was detected with the administration of agitated saline contrast. No prior studies available at this institution for direct comparison. Cardiology consulted Prolonged QTc Avoid QT prolonging drugs Follow repeat EKG DVT prophylaxis SCDs for now Disposition Admission and Anticipated Discharge Date Admission Date: April 16, 2023 Subjective Pt seen in follow up of stroke-like symptoms, (hx of CVA), elevated troponin Currently laying in bed in NAD Denies any chest pain, palpitations, shortness of breath, headache. Denies fever, chills, abd. pain n/v Says she has had weakness in LE for some time, had a fall - this was discussed w/ neurology as well Pt is able to move LE extremities while laying in bed. Now can't move RUE (this is what brought her into hospital). Stroke was ruled out. Pt will need PT Seen by neurology Review of Systems Review of Systems: All systems reviewed & are unremarkable except as noted in Subjective Physical Exam Physical Exam: General- WD/WN elderly F in NAD Head- atraumatic Eyes- PERRL, EOMI. ENT- oropharynx clear Neck- supple, no JVD. Lungs- clear to auscultation no wheezing or crackles. Heart- regular rhythm; Murmur in mitral area, no gallop. Abdomen- normal bowel sounds, soft, nontender, no distension Extremities- trace lower extremity edema present, no erythema seen Neuro- alert, oriented x 3; PERRL, EOMI; speech soft but fluent, + RUE weakness noted when trying to lift arm, 3-4/5 in lower extremities, able to move LE extremities and lift them off bed Skin- warm & dry Results & Data Results & Data Vital Signs (Past 12 Hours) Vital Signs Temp Pulse Pulse Resp BP Pulse Ox O2 Del Method 04/17/23 14:34 36.8 C 70 18 130/80 95 Room Air 04/17/23 12:31 36.4 C L 77 16 119/74 94 Room Air 04/17/23 07:17 36.4 C L 76 16 117/86 93 Room Air 04/17/23 07:07 75 Laboratory Results 04/17/23 04/16/23 Range/Units 06:41 19:45 WBC 6.07 (4.8-10.8) K/ul RBC 3.93 L (4.20-5.40) M/uL Hgb 12.0 (12.0-16.0) g/dl Hct 36.0 L (37.0-47.0) % MCV 91.6 (80.0-100.0) fL MCH 30.5 (25.0-34.0) pg MCHC 33.3 (32.0-36.0) g/dL RDW Std Deviation 44.4 (36.4-46.3) fL RDW Coeff of [place] 13.3 (11.5-14.5) % Plt Count 164 (130-400) K/uL MPV 9.9 (9.4-12.4) fL Immature Gran % (Auto) 0.3 % Neut % (Auto) 70.3 % Lymph % (Auto) 18.6 % [place] % (Auto) 8.4 % Eos % (Auto) 2.1 % Baso % (Auto) 0.3 % Neut # (Auto) 4.26 (1.40-6.50) K/uL Lymph # (Auto) 1.13 L (1.20-3.40) K/uL [place] # (Auto) 0.51 (0.11-0.59) K/uL Eos # (Auto) 0.13 (0.00-0.50) K/uL Baso # (Auto) 0.02 (0.00-0.20) K/uL Immature Gran # (Auto) 0.02 (0.01-0.20) K/uL Sodium 141 (136-145) mmol/L Potassium 4.5 (3.5-5.1) mmol/L Chloride 104 (98-107) mmol/L Carbon Dioxide 32 (21-32) mmol/L Anion Gap 5 (3-11) BUN 16 (6-23) mg/dl Creatinine 0.54 L (0.6-1.2) mg/dl Est Cr Clr Drug Dosing 99.8 ml/min Est GFR ( Amer) 109.3 ml/min Est GFR (Non-Af Amer) 94.3 ml/min BUN/Creatinine Ratio 29.6 H (10-20) Glucose 75 (70-99(Fasting)) mg/dl Estimat Average Glucose Pending Hemoglobin A1c Pending Calcium 9.2 (8.6-10.3) mg/dl Phosphorus 3.9 (2.5-4.9) mg/dl Magnesium 1.6 L (1.7-2.4) mg/dl Troponin I High Sens 71.4 H* (0-14) pg/ml Triglycerides 45 (0-150) mg/dl Cholesterol 111 (0-200) mg/dl LDL Cholesterol, Calc 38 mg/dl VLDL Cholesterol, Calc 9 (0-30) mg/dl HDL Cholesterol 64 mg/dl Cholesterol/HDL Ratio 1.7 (0-5) Medications Administered Current Inpatient Medications Acetaminophen (Acetaminophen 325 Mg Tab) 650 mg PO Q4H PRN PRN Reason: Pain or Fever Stop: 05/16/23 05:25 Aspirin (Aspirin 81 Mg Ectab) 81 mg PO QAM [facility] Stop: 05/16/23 08:59 Last Admin: 04/17/23 09:03 Dose: 81 mg Levothyroxine Sodium (Levothyroxine Sodium 100 Mcg Tablet) 100 mcg PO DAILYBB [facility] Stop: 05/16/23 06:29 Last Admin: 04/17/23 06:02 Dose: 100 mcg Losartan Potassium (Losartan Potassium 25 Mg Tab) 25 mg PO DAILY [facility] Stop: 05/16/23 08:59 Magnesium Oxide (Magnesium Oxide 400 Mg Tab) 400 mg PO BID [facility] Stop: 04/18/23 09:01 Miscellaneous Information (Pharmacist Discharge Med Rec Consult) 1 each N/A UD PRN PRN Reason: Consult Stop: 05/16/23 05:25 Nitroglycerin (Nitroglycerin Sl 0.4 Mg/Tab Tab) 0.4 mg SL Q5M PRN PRN Reason: Chest Pain Stop: 05/16/23 05:25 Polyethylene Glycol (Polyethylene (Miralax) 17 Gm Pack) 17 gm PO DAILY PRN PRN Reason: Constipation Stop: 05/16/23 05:25 Simvastatin (Simvastatin 20 Mg Tab) 20 mg PO HS [facility] Stop: 05/16/23 20:59 Last Admin: 04/16/23 20:10 Dose: 20 mg
[2023-04-17] MEDS: SIMVASTATIN 20 MG TAB PO SCH (19:58)
[2023-04-17] MEDS: MAGNESIUM OXIDE 400 MG TAB PO SCH (19:58)
--- NOTE | 2023-04-17 21:26 | Electrocardiogram Report ---
Test Reason : Blood Pressure : / mmHG Vent. Rate : 058 BPM Atrial Rate : 058 BPM P-R Int : 148 ms QRS Dur : 158 ms QT Int : 510 ms P-R-T Axes : 073 109 -03 degrees QTc Int : 500 ms Sinus bradycardia Right bundle branch block Lateral infarct , age undetermined Abnormal ECG When compared with ECG of 29-JUN-2013 23:04, Lateral infarct is now Present Confirmed by Chema Jasmine ([id number]) on 04/17/2023 9:25:57 PM Referred By: REFERRED SELF Confirmed By:Chema Jasmine
--- NOTE | 2023-04-17 22:30 | Electrocardiogram Report ---
Test Reason : Blood Pressure : / mmHG Vent. Rate : 064 BPM Atrial Rate : 064 BPM P-R Int : 148 ms QRS Dur : 136 ms QT Int : 476 ms P-R-T Axes : 054 123 012 degrees QTc Int : 491 ms Poor data quality, interpretation may be adversely affected Sinus rhythm with Premature supraventricular complexes Possible Left atrial enlargement Right bundle branch block Septal infarct , age undetermined Abnormal ECG When compared with ECG of 15-APR-2023 18:22, Premature supraventricular complexes are now Present Septal infarct is now Present Confirmed by Chema Jasmine ([id number] on 04/17/2023 10:29:43 PM Referred By: REFERRED SELF Confirmed By:Chema Jasmine
[2023-04-18] MEDS: LEVOTHYROXINE SODIUM 100 MCG TABLET PO SCH (06:07)
[2023-04-18 07:25] LABS: Basophils # (auto) 0.01 K/uL (0.00-0.20); Basophils % (auto) 0.2 %; Eosinophils # (auto) 0.19 K/uL (0.00-0.50); Eosinophils % (auto) 3.3 %; Hematocrit (blood only) 38.3 % (37.0-47.0); Hemoglobin 12.2 g/dl (12.0-16.0); Immature Granulocytes # (auto) 0.03 K/uL (0.01-0.20); Immature Granulocytes % (auto) 0.5 %; Lymphocytes % (auto) 26.3 %; Mean Corpuscular Hgb Conc 31.9 g/dL (32.0-36.0); Mean Corpuscular Volume 94.1 fL (80.0-100.0); Mean Platelet Volume 9.6 fL (9.4-12.4); Monocytes # (auto) 0.79 K/uL (0.11-0.59); Monocytes % (auto) 13.9 %; Neutrophils # (auto) 3.18 K/uL (1.40-6.50); Neutrophils % (auto) 55.8 %; Platelet Count 156 K/uL (130-400); RDW Coefficient of Variation 13.6 % (11.5-14.5); RDW Standard Deviation 46.2 fL (36.4-46.3); Red Blood Count 4.07 M/uL (4.20-5.40)
[2023-04-18 07:27] LABS: Estimated Average Glucose 120 mg/dl; Hemoglobin A1C 5.8 % (4.5-5.6)
[2023-04-18 08:03] LABS: BUN Creatinine Ratio 23.8 (10-20); Calcium 9.4 mg/dl (8.6-10.3); Creatinine Clr Calc Pharmacy 85.3 ml/min; Est GFR (African American) 103.9 ml/min; Est GFR (Non-African American) 89.6 ml/min; Potassium 4.2 mmol/L (3.5-5.1)
[2023-04-18] MEDS: ASPIRIN 81 MG ECTAB PO SCH (08:50)
[2023-04-18] MEDS: MAGNESIUM OXIDE 400 MG TAB PO SCH (08:50)
--- NOTE | 2023-04-18 16:52 | Cardiology Progress Note ---
Date of Service April 18, 2023 Assessment & Plan (1) Elevated troponin I level: (2) Abnormal EKG: Plan: Presentation not suggestive of acute coronary syndrome. Continue outpatient treatment aspirin, losartan, simvastatin. No further cardiac testing felt to be indicated at this time. Admission and Anticipated Discharge Date Admission Date: April 16, 2023 Subjective Patient feeling well. She is eating her evening meal at the time of my assessment. Telemetry today reveals sinus rhythm in the 60s with occasional PVCs. Physical Exam Constitutional: WD/WN, vitals as above Respiratory: normal respiratory effort, lungs clear to auscultation Cardiovascular: RRR, no murmur, no edema Gastrointestinal (Abdomen): normal bowel sounds, soft, nontender, no h epatosplenomegaly Results & Data Vital Signs (Past 12 Hours) Vital Signs Temp Pulse Pulse Resp BP Pulse Ox O2 Del Method 04/18/23 15:16 66 04/18/23 15:13 36.6 C 60 18 131/71 94 Room Air 04/18/23 10:32 36.3 C L 65 17 133/80 94 Room Air 04/18/23 07:33 61 04/18/23 07:15 36.2 C L 65 16 147/79 H 94 Room Air
[2023-04-18] MEDS: SIMVASTATIN 20 MG TAB PO SCH (20:22)
[2023-04-19] MEDS: LEVOTHYROXINE SODIUM 100 MCG TABLET PO SCH (05:29)
[2023-04-19 07:38] LABS: Basophils # (auto) 0.02 K/uL (0.00-0.20); Basophils % (auto) 0.4 %; Eosinophils # (auto) 0.18 K/uL (0.00-0.50); Eosinophils % (auto) 3.3 %; Hematocrit (blood only) 40.5 % (37.0-47.0); Hemoglobin 13.1 g/dl (12.0-16.0); Immature Granulocytes # (auto) 0.03 K/uL (0.01-0.20); Immature Granulocytes % (auto) 0.5 %; Lymphocytes # (auto) 0.51 K/uL (1.20-3.40); Lymphocytes % (auto) 9.2 %; Mean Corpuscular Hemoglobin 30.3 pg (25.0-34.0); Mean Corpuscular Hgb Conc 32.3 g/dL (32.0-36.0); Mean Corpuscular Volume 93.8 fL (80.0-100.0); Monocytes # (auto) 0.59 K/uL (0.11-0.59); Monocytes % (auto) 10.7 %; Neutrophils % (auto) 75.9 %; Platelet Count 150 K/uL (130-400); RDW Coefficient of Variation 13.4 % (11.5-14.5); RDW Standard Deviation 45.9 fL (36.4-46.3); Red Blood Count 4.32 M/uL (4.20-5.40); White Blood Count 5.53 K/ul (4.8-10.8)
[2023-04-19 07:59] LABS: BUN Creatinine Ratio 23.8 (10-20); Calcium 9.4 mg/dl (8.6-10.3); Creatinine Clr Calc Pharmacy 85.1 ml/min; Est GFR (African American) 103.9 ml/min; Est GFR (Non-African American) 89.6 ml/min; Potassium 4.4 mmol/L (3.5-5.1)
[2023-04-19] MEDS: ASPIRIN 81 MG ECTAB PO SCH (08:22)
--- NOTE | 2023-04-19 08:29 | Hospitalist Progress Note ---
Date of Service April 18, 2023 (late entry) Assessment & Plan (1) Stroke-like symptom: Plan: 72 to F with past medical history significant for CVA, hypertension, hyperlipidemia, hypothyroidism comes because of weakness and not able to lift her right upper extremity for last few days. Arun Wilkins she felt little dizzy and weak but that got improved. But again last few days having weakness and having difficulty lifting her right upper extremity. When she had a stroke she had weakness on the left side. She ambulates using cart. Right upper extremity weakness Ambulatory dysfunction Stroke protocol ordered CT head and MRI w/o cva PT OT Consulted neurology for further recommendations - Axillary nerve injury: Pattern of weakness with first 20 deg weakness of deltoid suggests axillary nerve injury. She has extensive bruising of the axilla which would suggest a traumatic cause though there is no pain. Cervical spine cause without pain or radicular symptoms is less likely. -- Trauma evaluation, consider shoulder x-ray, consider cervical spine evaluation -- EMG in 6 weeks if weakness does not improve Shoulder XR - 1. No fracture or dislocation within the right shoulder. 2. Moderate degenerative changes within the right shoulder. 3. Mild elevation the right humeral head with narrowing of the subacromial space. This is likely due to a chronic rotator cuff tear. History of CVA On aspirin and statin Hypothyroidism on Synthyroid Hypertension on losartan Lower EXTR edema echo obtained, reviewed -edema improved Elevation of troponin abnormal ecg Mostly demand ischemia Echo obtained -moderate concentric LVH. LV wall motion is normal. LVEF 65 to 70%. LA is mildly dilated. There is moderate mitral annular calcification. There is mild tricuspid regurg. RV is mildly dilated with normal RV systolic function. Diastolic dysfunction, grade 2. No interatrial shunt was detected with the administration of agitated saline contrast. No prior studies available at this institution for direct comparison. Cardiology consulted - Presentation not suggestive of acute coronary syndrome. Continue outpatient treatment aspirin, losartan, simvastatin. No further cardiac testing felt to be indicated at this time. Prolonged QTc Avoid QT prolonging drugs Follow repeat EKG DVT prophylaxis SCDs for now Disposition Admission and Anticipated Discharge Date Admission Date: April 16, 2023 Subjective Pt seen in follow up of stroke-like symptoms, (hx of CVA), elevated troponin Currently laying in bed in NAD Denies any chest pain, palpitations, shortness of breath, headache. Denies fever, chills, abd. pain n/v Says she has had weakness in LE for some time, had a fall - this was discussed w/ neurology as well Pt is able to move LE extremities while laying in bed. Stroke was ruled out. Pt will need PT Seen by neurology, and cardiology Review of Systems Review of Systems: All systems reviewed & are unremarkable except as noted in Subjective Physical Exam Physical Exam: General- WD/WN elderly F in NAD Head- atraumatic Eyes- PERRL, EOMI. ENT- oropharynx clear Neck- supple, no JVD. Lungs- clear to auscultation no wheezing or crackles. Heart- regular rhythm; Murmur in mitral area, no gallop. Abdomen- normal bowel sounds, soft, nontender, no distension Extremities- trace lower extremity edema present, no erythema seen Neuro- alert, oriented x 3; PERRL, EOMI; speech soft but fluent, + RUE weakness noted when trying to lift arm, 3-4/5 in lower extremities, able to move LE extremities and lift them off bed Skin- warm & dry Results & Data Results & Data Vital Signs (Past 12 Hours) Vital Signs Temp Pulse Pulse Resp BP Pulse Ox O2 Del Method 04/18/23 23:04 66
[2023-04-19] MEDS: LOSARTAN POTASSIUM 25 MG TAB PO SCH (11:55)
--- NOTE | 2023-04-19 14:09 | Hospitalist Progress Note ---
Date of Service April 19, 2023 Assessment & Plan (1) Stroke-like symptom: Plan: 72 to F with past medical history significant for CVA, hypertension, hyperlipidemia, hypothyroidism comes because of weakness and not able to lift her right upper extremity for last few days. Arun Wilkins she felt little dizzy and weak but that got improved. But again last few days having weakness and having difficulty lifting her right upper extremity. When she had a stroke she had weakness on the left side. She ambulates using cart. Right upper extremity weakness Ambulatory dysfunction Stroke protocol ordered CT head and MRI w/o cva PT OT Consulted neurology for further recommendations - Axillary nerve injury: Pattern of weakness with first 20 deg weakness of deltoid suggests axillary nerve injury. She has extensive bruising of the axilla which would suggest a traumatic cause though there is no pain. Cervical spine cause without pain or radicular symptoms is less likely. -- Trauma evaluation, consider shoulder x-ray, consider cervical spine evaluation -- EMG in 6 weeks if weakness does not improve Shoulder XR - 1. No fracture or dislocation within the right shoulder. 2. Moderate degenerative changes within the right shoulder. 3. Mild elevation the right humeral head with narrowing of the subacromial space. This is likely due to a chronic rotator cuff tear. CT neck - 1. No fractures within the cervical spine. 2. Degenerative changes as described above. 3. Focal high-grade stenosis at the takeoff of the right vertebral artery due to the calcified plaque. History of CVA On aspirin and statin Hypothyroidism on Synthyroid Hypertension on losartan LEs edema echo obtained, reviewed -edema improved Elevation of troponin abnormal ecg Mostly demand ischemia Echo obtained -moderate concentric LVH. LV wall motion is normal. LVEF 65 to 70%. LA is mildly dilated. There is moderate mitral annular calcification. There is mild tricuspid regurg. RV is mildly dilated with normal RV systolic function. Diastolic dysfunction, grade 2. No interatrial shunt was detected with the administration of agitated saline contrast. No prior studies available at this institution for direct comparison. Cardiology consulted - Presentation not suggestive of acute coronary syndrome. Continue outpatient treatment aspirin, losartan, simvastatin. No further cardiac testing felt to be indicated at this time. Prolonged QTc Avoid QT prolonging drugs Follow repeat EKG DVT prophylaxis SCDs for now Disposition - plan to dc to rehab Admission and Anticipated Discharge Date Admission Date: April 16, 2023 Subjective Pt seen in follow up of stroke-like symptoms, (hx of CVA), elevated troponin Currently laying in bed in NAD Denies any chest pain, palpitations, shortness of breath, headache. Denies fever, chills, abd. pain n/v Says she has had weakness in LEs for some time, had a fall - this was discussed w/ neurology as well Pt is able to move LE extremities while laying in bed. Stroke was ruled out. Seen by neurology, and cardiology Plan to dc to rehab Review of Systems Review of Systems: All systems reviewed & are unremarkable except as noted in Subjective Physical Exam Physical Exam: General- WD/WN elderly F in NAD Head- atraumatic Eyes- PERRL, EOMI. ENT- oropharynx clear Neck- supple, no JVD. Lungs- clear to auscultation no wheezing or crackles. Heart- regular rhythm; Murmur in mitral area, no gallop. Abdomen- normal bowel sounds, soft, nontender, no distension Extremities- trace lower extremity edema present, no erythema seen Neuro- alert, oriented x 3; PERRL, EOMI; speech soft but fluent, + RUE weakness noted when trying to lift arm, 3-4/5 in lower extremities, able to move LE extremities and lift them off bed Skin- warm & dry Results & Data Results & Data Vital Signs (Past 12 Hours) Vital Signs Temp Pulse Pulse Resp BP Pulse Ox O2 Del Method 04/19/23 10:51 36.9 C 78 16 107/68 94 Room Air 04/19/23 10:11 Room Air 04/19/23 07:48 73 04/19/23 07:44 36.7 C 70 17 124/75 91 Room Air 04/19/23 04:04 37.1 C 81 20 103/63 95 Room Air Laboratory Results 04/19/23 Range/Units 06:38 WBC 5.53 (4.8-10.8) K/ul RBC 4.32 (4.20-5.40) M/uL Hgb 13.1 (12.0-16.0) g/dl Hct 40.5 (37.0-47.0) % MCV 93.8 (80.0-100.0) fL MCH 30.3 (25.0-34.0) pg MCHC 32.3 (32.0-36.0) g/dL RDW Std Deviation 45.9 (36.4-46.3) fL RDW Coeff of Zulay 13.4 (11.5-14.5) % Plt Count 150 (130-400) K/uL MPV 10.0 (9.4-12.4) fL Immature Gran % (Auto) 0.5 % Neut % (Auto) 75.9 % Lymph % (Auto) 9.2 % [place] % (Auto) 10.7 % Eos % (Auto) 3.3 % Baso % (Auto) 0.4 % Neut # (Auto) 4.20 (1.40-6.50) K/uL Lymph # (Auto) 0.51 L (1.20-3.40) K/uL [place] # (Auto) 0.59 (0.11-0.59) K/uL Eos # (Auto) 0.18 (0.00-0.50) K/uL Baso # (Auto) 0.02 (0.00-0.20) K/uL Immature Gran # (Auto) 0.03 (0.01-0.20) K/uL Sodium 139 (136-145) mmol/L Potassium 4.4 (3.5-5.1) mmol/L Chloride 101 (98-107) mmol/L Carbon Dioxide 35 H (21-32) mmol/L Anion Gap 3 (3-11) BUN 15 (6-23) mg/dl Creatinine 0.63 (0.6-1.2) mg/dl Est Cr Clr Drug Dosing 85.1 ml/min Est GFR ( Amer) 103.9 ml/min Est GFR (Non-Af Amer) 89.6 ml/min BUN/Creatinine Ratio 23.8 H (10-20) Glucose 86 (70-99(Fasting)) mg/dl Calcium 9.4 (8.6-10.3) mg/dl Medications Administered Current Inpatient Medications Acetaminophen (Acetaminophen 325 Mg Tab) 650 mg PO Q4H PRN PRN Reason: Pain or Fever Stop: 05/16/23 05:25 Aspirin (Aspirin 81 Mg Ectab) [facility] [place] Stop: 05/16/23 08:59 Last Admin: 04/19/23 08:22 Dose: 81 mg Levothyroxine Sodium (Levothyroxine Sodium 100 Mcg Tablet) [facility] Stop: 05/16/23 06:29 Last Admin: 04/19/23 05:29 Dose: 100 mcg Losartan Potassium (Losartan Potassium 25 Mg Tab) 25 mg PO DAILY KIT Stop: 05/16/23 08:59 Last Admin: 04/19/23 11:55 Dose: 25 mg Nitroglycerin (Nitroglycerin Sl 0.4 Mg/Tab Tab) 0.4 mg SL Q5M PRN PRN Reason: Chest Pain Stop: 05/16/23 05:25 Polyethylene Glycol (Polyethylene (Miralax) 17 Gm Pack) 17 gm PO DAILY PRN PRN Reason: Constipation Stop: 05/16/23 05:25 Simvastatin (Simvastatin 20 Mg Tab) 20 mg PO [facility] Stop: 05/16/23 20:59 Last Admin: 04/18/23 20:22 Dose: 20 mg
[2023-04-19] MEDS ORDERED: OPTIRAY 320 500ml IV ONE (15:07)
--- NOTE | 2023-04-19 15:30 | CT Scan Report ---
CERVICAL SPINE CT with contrast CT DOSE: HISTORY: Neck pain. recent fall, axillary nerve injury TECHNIQUE: Multiaxial CT images of the cervical spine were performed and reformatted in the sagittal and coronal plane following the use of intravenous contrast. A dose lowering technique was utilized adhering to the principles of ALARA. COMPARISON: None. FINDINGS: No fractures. No subluxation. Prevertebral soft tissues and the C1-C2 interval are intact. No pneumothorax. Postcontrast sequences show no areas of abnormal enhancement. No significant central canal narrowing by CT technique. Mild degenerative disc disease at C5-C6. Mild facet degenerative ch anges within the upper cervical spine. Moderate calcified plaque within the bilateral carotid bifurca tions without significant stenosis. There is focal high-grade stenosis at the takeoff of the right ve rtebral artery due to the calcified plaque. IMPRESSION: 1. No fractures within the cervical spine. 2. Degenerative changes as described above. 3. Focal high-grade stenosis at the takeoff of the right vertebral artery due to the calcified plaque . ACT 112: Negative or not required by law. Electronically signed by: Jesu Hastings M.D. 04/19/2023 3:28 PM
[2023-04-19] MEDS: SIMVASTATIN 20 MG TAB PO SCH (20:00)
[2023-04-20] MEDS: LEVOTHYROXINE SODIUM 100 MCG TABLET PO SCH (06:26)
[2023-04-20] MEDS ORDERED: METOPROLOL TARTRATE 1 MG/ML VIAL IV STA (08:15)
[2023-04-20] MEDS: ASPIRIN 81 MG ECTAB PO SCH ×2 (08:28→08:31)
[2023-04-20 09:21] LABS: Hemoglobin 12.7 g/dl (12.0-16.0); Mean Corpuscular Hemoglobin 30.2 pg (25.0-34.0); Mean Corpuscular Hgb Conc 32.6 g/dL (32.0-36.0); Mean Corpuscular Volume 92.9 fL (80.0-100.0); Mean Platelet Volume 9.5 fL (9.4-12.4); Platelet Count 125 K/uL (130-400); RDW Coefficient of Variation 13.5 % (11.5-14.5); RDW Standard Deviation 45.2 fL (36.4-46.3)
[2023-04-20 09:24] LABS: BUN Creatinine Ratio 26.6 (10-20); Est GFR (African American) 103.3 ml/min; Est GFR (Non-African American) 89.2 ml/min; Magnesium 1.5 mg/dl (1.7-2.4); Potassium 3.6 mmol/L (3.5-5.1)
[2023-04-20] MEDS ORDERED: MAGNESIUM SULFATE / D5W 1 GM/100 ML BAG IV ONE (09:30)
[2023-04-20] MEDS ORDERED: POTASSIUM CHLORIDE CRTAB 20 MEQ TABCR PO STA (09:31)
--- NOTE | 2023-04-20 09:33 | Electrocardiogram Report ---
Test Reason : Blood Pressure : / mmHG Vent. Rate : 117 BPM Atrial Rate : 357 BPM P-R Int : 000 ms QRS Dur : 154 ms QT Int : 360 ms P-R-T Axes : 000 134 -23 degrees QTc Int : 502 ms Suspect arm lead reversal, interpretation assumes no reversal Atrial flutter with variable A-V block Right bundle branch block Lateral infarct , age undetermined Abnormal ECG When compared with ECG of 16-APR-2023 08:15, Sinus rhythm no longer present HR has increased by 53 bpm Confirmed by Bob Warren ([id number]) on 04/20/2023 9:32:46 AM Referred By: REFERRED SELF Confirmed By:Bob Warren
--- NOTE | 2023-04-20 09:33 | Hospitalist Progress Note ---
Date of Service April 20, 2023 Assessment & Plan (1) Stroke-like symptom: Plan: 72 to F with past medical history significant for CVA, hypertension, hyperlipidemia, hypothyroidism comes because of weakness and not able to lift her right upper extremity for last few days. Arun Wilkins she felt little dizzy and weak but that got improved. But again last few days having weakness and having difficulty lifting her right upper extremity. When she had a stroke she had weakness on the left side. She ambulates using cart. Right upper extremity weakness Ambulatory dysfunction Stroke protocol ordered CT head and MRI w/o cva PT OT Consulted neurology for further recommendations - Axillary nerve injury: Pattern of weakness with first 20 deg weakness of deltoid suggests axillary nerve injury. She has extensive bruising of the axilla which would suggest a traumatic cause though there is no pain. Cervical spine cause without pain or radicular symptoms is less likely. -- Trauma evaluation, consider shoulder x-ray, consider cervical spine evaluation -- EMG in 6 weeks if weakness does not improve Shoulder XR - 1. No fracture or dislocation within the right shoulder. 2. Moderate degenerative changes within the right shoulder. 3. Mild elevation the right humeral head with narrowing of the subacromial space. This is likely due to a chronic rotator cuff tear. CT neck - 1. No fractures within the cervical spine. 2. Degenerative changes as described above. 3. Focal high-grade stenosis at the takeoff of the right vertebral artery due to the calcified plaque. History of CVA On aspirin and statin Discussed w/ neurology - recommend to cont. Afib w/ RVR - noted on tele this AM ( Pt asymptomatic - no chest pain, palpitations, no dizziness , shortness of breath - she is laying in bed 2.5 IV metoprolol given mag found to be 1.5 - replacing K3.6 - supplement so that K> 4 cardiology also notified Hypothyroidism on Synthyroid Hypertension on losartan LEs edema echo obtained, reviewed -edema improved Elevation of troponin abnormal ecg Mostly demand ischemia Echo obtained -moderate concentric LVH. LV wall motion is normal. LVEF 65 to 70%. LA is mildly dilated. There is moderate mitral annular calcification. There is mild tricuspid regurg. RV is mildly dilated with normal RV systolic function. Diastolic dysfunction, grade 2. No interatrial shunt was detected with the administration of agitated saline contrast. No prior studies available at this institution for direct comparison. Cardiology consulted - Presentation not suggestive of acute coronary syndrome. Continue outpatient treatment aspirin, losartan, simvastatin. No further cardiac testing felt to be indicated at this time. Prolonged QTc Avoid QT prolonging drugs Follow repeat EKG DVT prophylaxis SCDs for now Disposition - PCU -> plan to dc to rehab when medically stable Admission and Anticipated Discharge Date Admission Date: April 16, 2023 Subjective Pt seen in follow up of stroke-like symptoms, (hx of CVA), elevated troponin Currently laying in bed in NAD Denies any chest pain, palpitations, shortness of breath, headache. Denies fever, chills, abd. pain n/v Says she has had weakness in LEs for some time, had a fall - this was discussed w/ neurology as well Pt is able to move LE extremities while laying in bed. Stroke was ruled out. Seen by neurology, and cardiology This AM developed Afib w/ RVR - stat bmp, mag ordered - mag 1.5 and replacing. metoprolol 2.5 iv given. cardiology notified as well. Review of Systems Review of Systems: All systems reviewed & are unremarkable except as noted in Subjective Physical Exam Physical Exam: General- WD/WN elderly F in NAD Head- atraumatic Eyes- PERRL, EOMI. ENT- oropharynx clear Neck- supple, no JVD. Lungs- clear to auscultation no wheezing or crackles. Heart- +tachycardic ; Murmur in mitral area, no gallop. Abdomen- normal bowel sounds, soft, nontender, no distension Extremities- trace lower extremity edema present, no erythema seen Neuro- alert, oriented x 3; PERRL, EOMI; speech soft but fluent, + RUE weakness noted when trying to lift arm, 3-4/5 in lower extremities, able to move LE extremities and lift them off bed Skin- warm & dry Results & Data Results & Data Vital Signs (Past 12 Hours) Vital Signs Temp Pulse Pulse Resp BP BP Pulse Ox 04/20/23 08:24 135 H 114/58 L 04/20/23 07:01 36.9 C 68 18 117/69 91 04/20/23 03:00 36.8 C 73 18 114/72 90 04/19/23 23:38 69 04/19/23 23:00 37.3 C 80 18 95/53 L 92 O2 Del Method 04/20/23 08:24 04/20/23 07:01 Room Air 04/20/23 03:00 Room Air 04/19/23 23:38 04/19/23 23:00 Room Air Laboratory Results 04/20/23 Range/Units 08:44 WBC 5.00 (4.8-10.8) K/ul RBC 4.20 (4.20-5.40) M/uL Hgb 12.7 (12.0-16.0) g/dl Hct 39.0 (37.0-47.0) % MCV 92.9 (80.0-100.0) fL MCH 30.2 (25.0-34.0) pg MCHC 32.6 (32.0-36.0) g/dL RDW Std Deviation 45.2 (36.4-46.3) fL RDW Coeff of Zulay 13.5 (11.5-14.5) % Plt Count 125 L (130-400) K/uL MPV 9.5 (9.4-12.4) fL Sodium 137 (136-145) mmol/L Potassium 3.6 (3.5-5.1) mmol/L Chloride 100 (98-107) mmol/L Carbon Dioxide 30 (21-32) mmol/L Anion Gap 7 (3-11) BUN 17 (6-23) mg/dl Creatinine 0.64 (0.6-1.2) mg/dl Est Cr Clr Drug Dosing 83.0 ml/min Est GFR ( Amer) 103.3 ml/min Est GFR (Non-Af Amer) 89.2 ml/min BUN/Creatinine Ratio 26.6 H (10-20) Glucose 135 H (70-99(Fasting)) mg/dl Calcium 9.0 (8.6-10.3) mg/dl Phosphorus 4.0 (2.5-4.9) mg/dl Magnesium 1.5 L (1.7-2.4) mg/dl Medications Administered Current Inpatient Medications Acetaminophen (Acetaminophen 325 Mg Tab) 650 mg PO Q4H PRN PRN Reason: Pain or Fever Stop: 05/16/23 05:25 Aspirin (Aspirin 81 Mg Ectab) [facility] [place] Stop: 05/16/23 08:59 Last Admin: 04/20/23 08:31 Dose: 81 mg Magnesium Sulfate/Dextrose (Magnesium Sulfate / D5w) 1 gm in 100 mls @ 50 mls/hr IV ONE ONE Stop: 04/20/23 11:29 Levothyroxine Sodium (Levothyroxine Sodium 100 Mcg Tablet) 100 mcg PO DAILYBB KIT Stop: 05/16/23 06:29 Last Admin: 04/20/23 06:26 Dose: 100 mcg Losartan Potassium (Losartan Potassium 25 Mg Tab) 25 mg PO DAILY KIT Stop: 05/16/23 08:59 Last Admin: 04/19/23 11:55 Dose: 25 mg Magnesium Oxide (Magnesium Oxide 400 Mg Tab) 400 mg PO BID KIT Stop: 05/20/23 09:29 Nitroglycerin (Nitroglycerin Sl 0.4 Mg/Tab Tab) 0.4 mg SL Q5M PRN PRN Reason: Chest Pain Stop: 05/16/23 05:25 Polyethylene Glycol (Polyethylene (Miralax) 17 Gm Pack) 17 gm PO DAILY PRN PRN Reason: Constipation Stop: 05/16/23 05:25 Potassium Chloride (Potassium Chloride Crtab 20 Meq Tabcr) 40 meq PO NOW STA Stop: 04/20/23 09:32 Simvastatin (Simvastatin 20 Mg Tab) 20 mg PO HS KIT Stop: 05/16/23 20:59 Last Admin: 04/19/23 20:00 Dose: 20 mg
[2023-04-20] MEDS ORDERED: STAT IV Infusion **Titration per Protocol STA (09:45)
[2023-04-20] MEDS ORDERED: AMIODARONE / D5W 150 MG/100 ML BAG IV STA (09:45)
[2023-04-20] MEDS ORDERED: 0.2 MICRON FILTER SET 1 EACH IV STA (09:45)
[2023-04-20] MEDS ORDERED: AMIODARONE IV BOLUS & DRIP IV STA (09:45)
--- NOTE | 2023-04-20 09:56 | Cardiology Progress Note ---
Date of Service April 20, 2023 Assessment & Plan (1) Paroxysmal atrial fibrillation: Plan: * Patient with history of stroke in 2013. MRI this admission with finding of right MCA territory encephalomalacia. * CHADsVasc score of 5 for risk factors of female, age > 65, HTN, past stroke (2 points). * Favor rhythm control strategy. LFTs normal earlier this admission. Check TSH and start amiodarone infusion and oral metoprolol. * Start Eliquis for stroke prevention, 5 mg BID. * Echo on 04/16 revealed LVEF of 65-70%, mild LA dilatation, moderate MAC. Admission and Anticipated Discharge Date Admission Date: April 16, 2023 Laura Saez is reassess per the request of Dr Howard for the development of atrial fibrillation with rapid ventricular response. Pt converted from sinus rhythm to atrial fibrillation this am at 830 am. Rates at high as the 140s. Pt received a dose of IV metoprolol 2.5 mg x 1 and rates improved. Pt asymptomatic at during my assessment and while examining the patient at 9:40 am she converted back to SR in the 70s without conversion pause. Physical Exam Constitutional: WD/WN, vitals as above Respiratory: normal respiratory effort, lungs clear to auscultation Cardiovascular: RRR, no murmur, no edema Gastrointestinal (Abdomen): normal bowel sounds, soft, nontender, no hepatosplenomegaly Results & Data Vital Signs (Past 12 Hours) Vital Signs Temp Pulse Pulse Resp BP BP Pulse Ox 04/20/23 08:24 135 H 114/58 L 04/20/23 07:01 36.9 C 68 18 117/69 91 04/20/23 03:00 36.8 C 73 18 114/72 90 04/19/23 23:38 69 04/19/23 23:00 37.3 C 80 18 95/53 L 92 O2 Del Method 04/20/23 08:24 04/20/23 07:01 Room Air 04/20/23 03:00 Room Air 04/19/23 23:38 04/19/23 23:00 Room Air
[2023-04-20] MEDS ORDERED: AMIODARONE / D5W 360 MG/200 ML BAG IV ONE (10:00)
[2023-04-20] MEDS: LOSARTAN POTASSIUM 25 MG TAB PO SCH (11:04)
[2023-04-20] MEDS: MAGNESIUM OXIDE 400 MG TAB PO SCH ×2 (11:07→21:32)
[2023-04-20] MEDS: APIXABAN 5 MG TABLET PO SCH ×2 (11:07→21:32)
[2023-04-20] MEDS: METOPROLOL TARTRATE 25 MG TAB PO SCH ×2 (11:07→21:33)
--- NOTE | 2023-04-20 11:09 | Electrocardiogram Report ---
Test Reason : Blood Pressure : / mmHG Vent. Rate : 081 BPM Atrial Rate : 081 BPM P-R Int : 104 ms QRS Dur : 172 ms QT Int : 410 ms P-R-T Axes : 073 147 016 degrees QTc Int : 476 ms Sinus rhythm with short UT with Premature atrial complexes Right bundle branch block Old Lateral infarct (cited on or before 15-APR-2023) Abnormal ECG When compared with ECG of 20-APR-2023 08:07, Sinus rhythm has replaced Atrial flutter HR has decreased by 36 bpm Confirmed by Bob Warren ([id number] on 04/20/2023 11:09:29 AM Referred By: REFERRED SELF Confirmed By:Bob Warren
[2023-04-20] MEDS ORDERED: INFLUENZA VIRUS QUADRIVALENT VACCINE (IIV4) 0.5 ML SYR IM ONE (11:13)
[2023-04-20] MEDS ORDERED: POTASSIUM CHLORIDE 20 MEQ/15 ML UDC PO STA (11:40)
[2023-04-20] MEDS ORDERED: AMIODARONE / D5W 360 MG/200 ML BAG IV SCH (16:00)
[2023-04-20] MEDS: SIMVASTATIN 20 MG TAB PO SCH (21:33)
[2023-04-21] MEDS: LEVOTHYROXINE SODIUM 100 MCG TABLET PO SCH (06:19)
[2023-04-21 07:02] LABS: BUN Creatinine Ratio 32.2 (10-20); Calcium 8.4 mg/dl (8.6-10.3); Est GFR (African American) 106.1 ml/min; Est GFR (Non-African American) 91.6 ml/min; Magnesium 1.8 mg/dl (1.7-2.4); Potassium 3.9 mmol/L (3.5-5.1)
[2023-04-21 07:16] LABS: Thyroid Stimulating Hormone 3.847 uIu/ml (0.300-4.500)
--- NOTE | 2023-04-21 09:14 | Hospitalist Progress Note ---
Date of Service April 21, 2023 Assessment & Plan (1) Stroke-like symptom: Plan: 72 to F with past medical history significant for CVA, hypertension, hyperlipidemia, hypothyroidism comes because of weakness and not able to lift her right upper extremity for last few days. Arun Wilkins she felt little dizzy and weak but that got improved. But again last few days having weakness and having difficulty lifting her right upper extremity. When she had a stroke she had weakness on the left side. She ambulates using cart. Right upper extremity weakness Ambulatory dysfunction Stroke protocol ordered CT head and MRI w/o cva PT OT Consulted neurology for further recommendations - Axillary nerve injury: Pattern of weakness with first 20 deg weakness of deltoid suggests axillary nerve injury. She has extensive bruising of the axilla which would suggest a traumatic cause though there is no pain. Cervical spine cause without pain or radicular symptoms is less likely. -- Trauma evaluation, consider shoulder x-ray, consider cervical spine evaluation -- EMG in 6 weeks if weakness does not improve Shoulder XR - 1. No fracture or dislocation within the right shoulder. 2. Moderate degenerative changes within the right shoulder. 3. Mild elevation the right humeral head with narrowing of the subacromial space. This is likely due to a chronic rotator cuff tear. CT neck - 1. No fractures within the cervical spine. 2. Degenerative changes as described above. 3. Focal high-grade stenosis at the takeoff of the right vertebral artery due to the calcified plaque. History of CVA On aspirin and statin Discussed w/ neurology - recommend to cont. Afib w/ RVR - noted on tele this AM ( Pt asymptomatic - no chest pain, palpitations, no dizziness , shortness of breath - she is laying in bed 2.5 IV metoprolol given mag found to be 1.5 - replacing K3.6 - supplement so that K> 4 Cardiology also notified - started amio and eliquis - pt converted to sinus and amio was discontinued - cont. metoprolol 12.5 bid and eliquis Hypothyroidism on Synthyroid TSH 3.8 Hypertension on losartan LEs edema echo obtained, reviewed -edema improved Elevation of troponin abnormal ecg Mostly demand ischemia Echo obtained -moderate concentric LVH. LV wall motion is normal. LVEF 65 to 70%. LA is mildly dilated. There is moderate mitral annular calcification. There is mild tricuspid regurg. RV is mildly dilated with normal RV systolic function. Diastolic dysfunction, grade 2. No interatrial shunt was detected with the administration of agitated saline contrast. No prior studies available at this institution for direct comparison. Cardiology consulted - Presentation not suggestive of acute coronary syndrome. Continue outpatient treatment aspirin, losartan, simvastatin. No further cardiac testing felt to be indicated at this time. Prolonged QTc Avoid QT prolonging drugs Follow repeat EKG DVT prophylaxis eliquis Disposition - PCU -> plan to dc to rehab when medically stable Admission and Anticipated Discharge Date Admission Date: April 16, 2023 Subjective Pt seen in follow up of stroke-like symptoms, (hx of CVA), elevated troponin Currently laying in bed in NAD Denies any chest pain, palpitations, shortness of breath, headache. Denies fever, chills, abd. pain n/v Says she has had weakness in LEs for some time, had a fall - this was discussed w/ neurology as well Pt is able to move LE extremities while laying in bed. Stroke was ruled out. Seen by neurology, and cardiology Yesterday developed Afib w/ RVR - mag 1.5 and replaced. metoprolol 2.5 iv given. cardiology notified as well. Plan was to start amio but pt converted back to sinus rhythm, Eliquis was started. Currently still in sinus. Review of Systems Review of Systems: All systems reviewed & are unremarkable except as noted in Subjective Physical Exam Physical Exam: General- WD/WN elderly F in NAD Head- atraumatic Eyes- PERRL, EOMI. ENT- oropharynx clear Neck- supple, no JVD. Lungs- clear to auscultation no wheezing or crackles. Heart- rrr ; Murmur in mitral area, no gallop. Abdomen- normal bowel sounds, soft, nontender, no distension Extremities- trace lower extremity edema present, no erythema seen Neuro- alert, oriented x 3; PERRL, EOMI; speech soft but fluent, + RUE weakness noted when trying to lift arm, 3-4/5 in lower extremities, able to move LE extremities and lift them off bed Skin- warm & dry Results & Data Results & Data Vital Signs (Past 12 Hours) Vital Signs Temp Pulse Pulse Resp BP BP Pulse Ox 04/21/23 08:11 36.6 C 64 18 112/68 95 04/21/23 03:00 36.6 C 54 L 16 102/65 95 01/11/24 00:00 60 04/20/23 23:00 36.7 C 59 L 14 99/66 L 91 04/20/23 21:38 65 127/75 O2 Del Method 04/21/23 08:11 Room Air 04/21/23 03:00 Room Air 04/21/23 00:00 04/20/23 23:00 Room Air 04/20/23 21:38 Laboratory Results 04/21/23 04/20/23 Range/Units 05:56 08:44 WBC 5.00 (4.8-10.8) K/ul RBC 4.20 (4.20-5.40) M/uL Hgb 12.7 (12.0-16.0) g/dl Hct 39.0 (37.0-47.0) % MCV 92.9 (80.0-100.0) fL MCH 30.2 (25.0-34.0) pg MCHC 32.6 (32.0-36.0) g/dL RDW Std Deviation 45.2 (36.4-46.3) fL RDW Coeff of Zulay 13.5 (11.5-14.5) % Plt Count 125 L (130-400) K/uL MPV 9.5 (9.4-12.4) fL Sodium 137 137 (136-145) mmol/L Potassium 3.9 3.6 (3.5-5.1) mmol/L Chloride 101 100 (98-107) mmol/L Carbon Dioxide 31 30 (21-32) mmol/L Anion Gap 5 7 (3-11) BUN 19 17 (6-23) mg/dl Creatinine 0.59 L 0.64 (0.6-1.2) mg/dl Est Cr Clr Drug Dosing 89.0 83.0 ml/min Est GFR ( Amer) 106.1 103.3 ml/min Est GFR (Non-Af Amer) 91.6 89.2 ml/min BUN/Creatinine Ratio 32.2 H 26.6 H (10-20) Glucose 86 135 H (70-99(Fasting)) mg/dl Calcium 8.4 L 9.0 (8.6-10.3) mg/dl Phosphorus 4.0 4.0 (2.5-4.9) mg/dl Magnesium 1.8 1.5 L (1.7-2.4) mg/dl TSH 3.847 (0.300-4.500) uIu/ml Medications Administered Current Inpatient Medications Acetaminophen (Acetaminophen 325 Mg Tab) 650 mg PO Q4H PRN PRN Reason: Pain or Fever Stop: 05/16/23 05:25 Apixaban (Apixaban 5 Mg Tablet) 5 mg PO BID [facility] Stop: 05/20/23 09:59 Last Admin: 04/20/23 21:32 Dose: 5 mg Aspirin (Aspirin 81 Mg Ectab) 81 mg PO QAM [facility] Stop: 05/16/23 08:59 Last Admin: 04/20/23 08:31 Dose: 81 mg Levothyroxine Sodium (Levothyroxine Sodium 100 Mcg Tablet) 100 mcg PO DAILYBB [facility] Stop: 05/16/23 06:29 Last Admin: 04/21/23 06:19 Dose: 100 mcg Losartan Potassium (Losartan Potassium 25 Mg Tab) 25 mg PO DAILY [facility] Stop: 05/16/23 08:59 Last Admin: 04/20/23 11:04 Dose: 25 mg Magnesium Oxide (Magnesium Oxide 400 Mg Tab) 400 mg PO BID [facility] Stop: 05/20/23 09:29 Last Admin: 04/20/23 21:32 Dose: 400 mg Metoprolol Tartrate (Metoprolol Tartrate 25 Mg Tab) 12.5 mg PO BID [facility] Stop: 05/20/23 09:59 Last Admin: 04/20/23 21:33 Dose: 12.5 mg Nitroglycerin (Nitroglycerin Sl 0.4 Mg/Tab Tab) 0.4 mg SL Q5M PRN PRN Reason: Chest Pain Stop: 05/16/23 05:25 Polyethylene Glycol (Polyethylene (Miralax) 17 Gm Pack) 17 gm PO DAILY PRN PRN Reason: Constipation Stop: 05/16/23 05:25 Simvastatin (Simvastatin 20 Mg Tab) 20 mg PO HS [facility] Stop: 05/16/23 20:59 Last Admin: 04/20/23 21:33 Dose: 20 mg
[2023-04-21] MEDS: MAGNESIUM OXIDE 400 MG TAB PO SCH ×2 (09:42→20:10)
[2023-04-21] MEDS: APIXABAN 5 MG TABLET PO SCH ×2 (09:42→20:09)
[2023-04-21] MEDS: METOPROLOL TARTRATE 25 MG TAB PO SCH ×2 (09:42→20:12)
[2023-04-21] MEDS: LOSARTAN POTASSIUM 25 MG TAB PO SCH (09:43)
[2023-04-21] MEDS: ASPIRIN 81 MG ECTAB PO SCH (09:43)
--- NOTE | 2023-04-21 12:37 | Cardiology Progress Note ---
Date of Service April 21, 2023 Assessment & Plan (1) Paroxysmal atrial fibrillation: Plan: * Patient with history of stroke in 2013. MRI this admission with finding of right MCA territory encephalomalacia. * CHADsVasc score of 5 for risk factors of female, age > 65, HTN, past stroke (2 points). * Continue metoprolol tartrate 12.5 mg BID and Eliquis . * If she has a recurrent episode of AF, would have low threshold to start oral amiodarone with caution given findings of right bundle branch block on EKG. * Echo on 04/16 revealed LVEF of 65-70%, mild LA dilatation, moderate MAC. Admission and Anticipated Discharge Date Admission Date: April 16, 2023 Subjective Patient seen in cardiology follow up. No cardiac complaints. Remains in sinus rhythm since brief episode of atrial fibrillation. Amiodarone discontinued yesterday as she had remained in SR. She was back in SR before amiodarone was initiated. Physical Exam Constitutional: WD/WN, vitals as above Respiratory: normal respiratory effort, lungs clear to auscultation Cardiovascular: RRR, no murmur, no edema Gastrointestinal (Abdomen): normal bowel sounds, soft, nontender, no hepatosp lenomegaly Results & Data Vital Signs (Past 12 Hours) Vital Signs Temp Pulse Resp BP BP Pulse Ox O2 Del Method 04/21/23 11:20 36.6 C 58 L 19 113/62 94 Room Air 04/21/23 08:11 36.6 C 64 18 112/68 95 Room Air 04/21/23 03:00 36.6 C 54 L 16 102/65 95 Room Air
[2023-04-21] MEDS: SIMVASTATIN 20 MG TAB PO SCH (20:09)
[2023-04-22] MEDS: LEVOTHYROXINE SODIUM 100 MCG TABLET PO SCH (05:43)
[2023-04-22 06:58] LABS: Calcium 8.5 mg/dl (8.6-10.3); Magnesium 1.7 mg/dl (1.7-2.4); Potassium 4.1 mmol/L (3.5-5.1)
[2023-04-22 07:04] LABS: BUN Creatinine Ratio 38.7 (10-20); Creatinine Clr Calc Pharmacy 84.8 ml/min; Est GFR (African American) 104.4 ml/min; Est GFR (Non-African American) 90.1 ml/min; Phosphorus 3.9 mg/dl (2.5-4.9)
[2023-04-22] MEDS: METOPROLOL TARTRATE 25 MG TAB PO SCH ×2 (07:27→21:05)
[2023-04-22] MEDS: ASPIRIN 81 MG ECTAB PO SCH (07:27)
[2023-04-22] MEDS: MAGNESIUM OXIDE 400 MG TAB PO SCH ×2 (07:27→20:02)
[2023-04-22] MEDS: APIXABAN 5 MG TABLET PO SCH ×2 (07:27→20:02)
[2023-04-22] MEDS: LOSARTAN POTASSIUM 25 MG TAB PO SCH (07:27)
--- NOTE | 2023-04-22 10:28 | Hospitalist Progress Note ---
Date of Service April 22, 2023 Assessment & Plan (1) Stroke-like symptom: Plan: 72 to F with past medical history significant for CVA, hypertension, hyperlipidemia, hypothyroidism comes because of weakness and not able to lift her right upper extremity for last few days. Arun Wilkins she felt little dizzy and weak but that got improved. But again last few days having weakness and having difficulty lifting her right upper extremity. When she had a stroke she had weakness on the left side. She ambulates using cart. Right upper extremity weakness Ambulatory dysfunction Stroke protocol ordered CT head and MRI w/o cva PT OT Consulted neurology for further recommendations - Axillary nerve injury: Pattern of weakness with first 20 deg weakness of deltoid suggests axillary nerve injury. She has extensive bruising of the axilla which would suggest a traumatic cause though there is no pain. Cervical spine cause without pain or radicular symptoms is less likely. -- Trauma evaluation, consider shoulder x-ray, consider cervical spine evaluation -- EMG in 6 weeks if weakness does not improve Shoulder XR - 1. No fracture or dislocation within the right shoulder. 2. Moderate degenerative changes within the right shoulder. 3. Mild elevation the right humeral head with narrowing of the subacromial space. This is likely due to a chronic rotator cuff tear. CT neck - 1. No fractures within the cervical spine. 2. Degenerative changes as described above. 3. Focal high-grade stenosis at the takeoff of the right vertebral artery due to the calcified plaque. History of CVA On aspirin and statin Discussed w/ neurology - recommend to cont. Afib w/ RVR - noted on tele on AM Pt asymptomatic - no chest pain, palpitations, no dizziness , shortness of breath - she is laying in bed 2.5 IV metoprolol given mag found to be 1.5 - replaced K3.6 - supplement so that K> 4 Cardiology also notified - started amio and eliquis - pt converted to sinus and amio was discontinued - cont. metoprolol 12.5 bid and eliquis 04/22 - AM This AM again in A-fib with RVR. Per RN, patient did not receive metoprolol last night as her systolic blood pressure was in the 90s. Patient received metoprolol this a.m., and heart rate already improving. Patient is already on Eliquis. Cardiology was notified by RN. Hypothyroidism on Synthyroid TSH 3.8 Hypertension on losartan LEs edema echo obtained, reviewed -edema improved Elevation of troponin abnormal ecg Mostly demand ischemia Echo obtained -moderate concentric LVH. LV wall motion is normal. LVEF 65 to 70%. LA is mildly dilated. There is moderate mitral annular calcification. There is mild tricuspid regurg. RV is mildly dilated with normal RV systolic function. Diastolic dysfunction, grade 2. No interatrial shunt was detected with the administration of agitated saline contrast. No prior studies available at this institution for direct comparison. Cardiology consulted - Presentation not suggestive of acute coronary syndrome. Continue outpatient treatment aspirin, losartan, simvastatin. No further cardiac testing felt to be indicated at this time. Prolonged QTc Avoid QT prolonging drugs Follow repeat EKG DVT prophylaxis eliquis Disposition - PCU -> plan to dc to rehab when medically stable Admission and Anticipated Discharge Date Admission Date: April 16, 2023 Subjective Pt seen in follow up of stroke-like symptoms, (hx of CVA), elevated troponin. During her hospital stay she also developed afib w/ rvr. Currently laying in bed in NAD Denies any chest pain, palpitations, shortness of breath, headache. Denies fever, chills, abd. pain n/v Says she has had weakness in LEs for some time, had a fall - this was discussed w/ neurology as well Pt is able to move LE extremities while laying in bed. Stroke was ruled out. Seen by neurology, and cardiology This morning patient again in A-fib with RVR. Per RN, patient did not receive metoprolol last night as her systolic blood pressure was in the 90s. Patient received metoprolol this a.m., and heart rate already improving. Patient is already on Eliquis. Cardiology was notified by RN. Review of Systems Review of Systems: All systems reviewed & are unremarkable except as noted in Subjective Physical Exam Physical Exam: General- WD/WN elderly F in NAD Head- atraumatic Eyes- PERRL, EOMI. ENT- oropharynx clear Neck- supple, no JVD. Lungs- clear to auscultation no wheezing or crackles. Heart- irregular ; Murmur in mitral area, no gallop. Abdomen- normal bowel sounds, soft, nontender, no distension Extremities- trace lower extremity edema present, no erythema seen Neuro- alert, oriented x 3; PERRL, EOMI; speech soft but fluent, + RUE weakness noted when trying to lift arm, 3-4/5 in lower extremities, able to move LE extremities and lift them off bed Skin- warm & dry Results & Data Results & Data Vital Signs (Past 12 Hours) Vital Signs Temp Pulse Pulse Resp BP Pulse Ox O2 Del Method 04/22/23 08:00 64 04/22/23 08:00 Room Air 04/22/23 07:26 36.8 C 112 H 18 117/73 96 Room Air 04/22/23 03:47 36.9 C 58 L 18 102/56 L 93 Room Air 04/21/23 23:02 36.4 C L 58 L 16 118/76 95 Room Air 04/21/23 22:54 53 L Laboratory Results 04/22/23 Range/Units 05:50 Sodium 137 (136-145) mmol/L Potassium 4.1 (3.5-5.1) mmol/L Chloride 101 (98-107) mmol/L Carbon Dioxide 30 (21-32) mmol/L Anion Gap 6 (3-11) BUN 24 H (6-23) mg/dl Creatinine 0.62 (0.6-1.2) mg/dl Est Cr Clr Drug Dosing 84.8 ml/min Est GFR ( Amer) 104.4 ml/min Est GFR (Non-Af Amer) 90.1 ml/min BUN/Creatinine Ratio 38.7 H (10-20) Glucose 89 (70-99(Fasting)) mg/dl Calcium 8.5 L (8.6-10.3) mg/dl Phosphorus 3.9 (2.5-4.9) mg/dl Magnesium 1.7 (1.7-2.4) mg/dl Medications Administered Current Inpatient Medications Acetaminophen (Acetaminophen 325 Mg Tab) 650 mg PO Q4H PRN PRN Reason: Pain or Fever Stop: 05/16/23 05:25 Amiodarone HCl (Amiodarone 200 Mg Tab) 200 mg PO TIDM [facility] Stop: 05/22/23 11:59 Apixaban (Apixaban 5 Mg Tablet) 5 mg PO BID [facility] Stop: 05/20/23 09:59 Last Admin: 04/22/23 07:27 Dose: 5 mg Aspirin (Aspirin 81 Mg Ectab) 81 mg PO QAM [facility] Stop: 05/16/23 08:59 Last Admin: 04/22/23 07:27 Dose: 81 mg Levothyroxine Sodium (Levothyroxine Sodium 100 Mcg Tablet) 100 mcg PO DAILYBB [facility] Stop: 05/16/23 06:29 Last Admin: 04/22/23 05:43 Dose: 100 mcg Losartan Potassium (Losartan Potassium 25 Mg Tab) 25 mg PO DAILY [facility] Stop: 05/16/23 08:59 Last Admin: 04/22/23 07:27 Dose: 25 mg Magnesium Oxide (Magnesium Oxide 400 Mg Tab) 400 mg PO BID [facility] Stop: 05/20/23 09:29 Last Admin: 04/22/23 07:27 Dose: 400 mg Metoprolol Tartrate (Metoprolol Tartrate 25 Mg Tab) 12.5 mg PO BID [facility] Stop: 05/20/23 09:59 Last Admin: 04/22/23 07:27 Dose: 12.5 mg Nitroglycerin (Nitroglycerin Sl 0.4 Mg/Tab Tab) 0.4 mg SL Q5M PRN PRN Reason: Chest Pain Stop: 05/16/23 05:25 Polyethylene Glycol (Polyethylene (Miralax) 17 Gm Pack) 17 gm PO DAILY PRN PRN Reason: Constipation Stop: 05/16/23 05:25 Simvastatin (Simvastatin 20 Mg Tab) 20 mg PO HS [facility] Stop: 05/16/23 20:59 Last Admin: 04/21/23 20:09 Dose: 20 mg
[2023-04-22] MEDS: AMIODARONE 200 MG TAB PO SCH ×2 (11:21→16:59)
--- NOTE | 2023-04-22 11:49 | Electrocardiogram Report ---
Test Reason : Blood Pressure : / mmHG Vent. Rate : 120 BPM Atrial Rate : 131 BPM P-R Int : 000 ms QRS Dur : 138 ms QT Int : 298 ms P-R-T Axes : 000 128 -21 degrees QTc Int : 421 ms Atrial flutter with rapid ventricular response Right bundle branch block Old Lateral infarct (cited on or before 15-APR-2023) T wave abnormality, consider inferior ischemia Abnormal ECG When compared with ECG of 20-APR-2023 09:47, Atrial flutter has replaced Sinus rhythm HR has increased by 39 bpm Confirmed by Bob Warren ([id number] on 04/22/2023 11:48:47 AM Referred By: REFERRED SELF Confirmed By:Bob Warren
--- NOTE | 2023-04-22 12:58 | Cardiology Progress Note ---
Date of Service April 22, 2023 Assessment & Plan (1) Paroxysmal atrial fibrillation: Plan: . (2) RBBB (right bundle branch block): Plan: * Patient with history of stroke in 2013. MRI this admission with finding of right MCA territory encephalomalacia. * CHADsVasc score of 5 for risk factors of female, age > 65, HTN, past stroke (2 points). * Continue metoprolol tartrate 12.5 mg BID and Eliquis . * Echo on 04/16 revealed LVEF of 65-70%, mild LA dilatation, moderate MAC Pt with episode of AF that lasted at hour on 04/20/23. Recurrent episode of 5 hours at this time. Received first dose oral amiodarone 1.5 hours ag. Continue metoprolol tartrate 12.5 mg BID . Digixon 0.125 mg x 1 now. Continue Eliquis. Admission and Anticipated Discharge Date Admission Date: April 16, 2023 Subjective Pt reverted back to atrial fibrillation at 540 am on 04/22/22. Currently rate is 110-115 bpm. SBP in the 90s. Asymptomatic from a cardiac perspective. Physical Exam Constitutional: WD/WN, vitals as above Respiratory: normal respiratory effort, lungs clear to auscultation Cardiovascular: RRR, no murmur, no edema Gastrointestinal (Abdomen): normal bowel sounds, soft, nontender, no hepatosplenomegaly Results & Data Vital Signs (Past 12 Hours) Vital Signs Temp Pulse Pulse Resp BP BP Pulse Ox 04/22/23 11:59 36.6 C 89 16 98/61 L 94 04/22/23 08:00 64 04/22/23 08:00 04/22/23 07:26 36.8 C 112 H 18 117/73 96 04/22/23 03:47 36.9 C 58 L 18 102/56 L 93 O2 Del Method 04/22/23 11:59 Room Air 04/22/23 08:00 04/22/23 08:00 Room Air 04/22/23 07:26 Room Air 04/22/23 03:47 Room Air Laboratory Results Comprehensive Metabolic Panel 04/22/23 Range/Units 05:50 Sodium 137 (136-145) mmol/L Potassium 4.1 (3.5-5.1) mmol/L Chloride 101 (98-107) mmol/L Carbon Dioxide 30 (21-32) mmol/L BUN 24 H (6-23) mg/dl Creatinine 0.62 (0.6-1.2) mg/dl Glucose 89 (70-99(Fasting)) mg/dl Calcium 8.5 L (8.6-10.3) mg/dl Intake and Output 04/21/23 04/22/23 04/22/23 22:59 06:59 14:59 Intake Total 275 / 875 Output Total 1100 / 1340 140 / 1340 Balance -825 / -465 -140 / -465 Intake: Oral 275 / 875 Output: Urine 1050 / 1050 Urine Amount (Catheter) 50 / 290 140 / 290 External 50 / 290 140 / 290 Other: Other Intake Source SIPS Weight 74.7 kg Weight Measurement Method Built in [facility]
[2023-04-22] MEDS ORDERED: DIGOXIN 125 MCG in SYRINGE 9.5 ML IV ONE (13:00)
[2023-04-22] MEDS: SIMVASTATIN 20 MG TAB PO SCH (20:02)
[2023-04-23] MEDS: LEVOTHYROXINE SODIUM 100 MCG TABLET PO SCH (05:38)
[2023-04-23 08:19] LABS: BUN Creatinine Ratio 35.8 (10-20); Calcium 8.2 mg/dl (8.6-10.3); Creatinine Clr Calc Pharmacy 78.4 ml/min; Est GFR (African American) 101.8 ml/min; Est GFR (Non-African American) 87.8 ml/min; Magnesium 1.8 mg/dl (1.7-2.4); Phosphorus 3.3 mg/dl (2.5-4.9); Potassium 4.1 mmol/L (3.5-5.1)
[2023-04-23] MEDS: AMIODARONE 200 MG TAB PO SCH ×3 (09:16→16:51)
[2023-04-23] MEDS: METOPROLOL TARTRATE 25 MG TAB PO SCH ×2 (09:16→20:02)
[2023-04-23] MEDS: ASPIRIN 81 MG ECTAB PO SCH (09:16)
[2023-04-23] MEDS: APIXABAN 5 MG TABLET PO SCH ×2 (09:16→20:02)
[2023-04-23] MEDS: MAGNESIUM OXIDE 400 MG TAB PO SCH ×2 (09:16→20:02)
[2023-04-23] MEDS: LOSARTAN POTASSIUM 25 MG TAB PO SCH (09:16)
--- NOTE | 2023-04-23 12:38 | Hospitalist Progress Note ---
Date of Service April 23, 2023 Assessment & Plan (1) Stroke-like symptom: Plan: 72 to F with past medical history significant for CVA, hypertension, hyperlipidemia, hypothyroidism comes because of weakness and not able to lift her right upper extremity for last few days [employer]. Arun Wilkins she felt little dizzy and weak but that got improved. But again last few days having weakness and having difficulty lifting her right upper extremity. When she had a stroke she had weakness on the left side. She ambulates using cart. She is being managed for the following: Right upper extremity weakness Ambulatory dysfunction Stroke protocol ordered, CT head and MRI brain without acute CVA. Neurology evaluated, likely axillary nerve injury likely traumatic cause [bruising present in the axilla]. Cervical spine cause without pain or radicular symptoms is less likely. Neuro recs were shoulder x-ray and C-spine CT which were done, reviewed. EMG in 6 weeks if weakness does not improve. Shoulder x-ray with chronic rotator cuff tear, follow-up Ortho on discharge. 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 History of CVA: Continue home aspirin and statin. A-fib RVR: Noted on telemetry 04/20/2023 AM, patient was asymptomatic. Cardio evaluated, currently on metoprolol, amiodarone and Eliquis. 04/22 AM, patient reverted back to A-fib RVR. Received 1 dose of digoxin 04/22. Monitor and replete electrolytes. Cardiology on board, appreciate recommendation. Prolonged QTc: QTc elevated at presentation, currently improved. Avoid QT prolonging drugs as able. Hypothyroidism: Continue home Synthroid Hypertension: Blood pressure on the lower side due to cardiac medications being added. Continue to monitor. Lower extremity edema: Improved, echo reviewed. Troponin elevated: Likely demand ischemia, echo reviewed. Cardiology evaluated, not suggestive of ACS. Continue outpatient aspirin, losartan, simvastatin. DVT prophylaxis: Patient on Eliquis Disposition: To rehab when cleared per cardiology. Admission and Anticipated Discharge Date Admission Date: April 16, 2023 Subjective Patient was seen and examined at bedside. Patient was sitting up in chair, on room air, NAD, reports no new acute overnight. Patient reports eating okay and moving bowels okay. Patient cannot raise her RUE above shoulder level but is able to function with her right upper extremity. Patient reports no pain at this point. Physical Exam Physical Exam: GENERAL: Alert and oriented x3. NAD, on RA. Overweight HEENT: No pallor, no icterus. Pupils equal, round and reactive to light. Oral mucosa moist. NECK: No JVD, no neck masses. HEART: S1 and S2 heard. irregular rate and rhythm. tachycardia. + murmur, no gallop. RESPIRATORY SYSTEM: Normal AP diameter. No accessory muscle use. No wheezing, no crackles. ABDOMEN: Soft, bowel sounds present, nontender, no distention. CENTRAL NERVOUS SYSTEM: No facial droop. Speech is clear. Obeys simple commands. Moves extremities. + RUE weakness noted when trying to lift arm, 3- 4/5 in lower extremities, able to move LE extremities and lift them off bed EXTREMITIES: No edema, no erythema seen. Results & Data Results & Data Vital Signs (Past 12 Hours) Vital Signs Temp Pulse Resp BP BP Pulse Ox O2 Del Method 04/23/23 11:40 36.3 C L 69 17 93/62 L 98 Room Air 04/23/23 09:17 119/69 04/23/23 08:05 36.5 C 86 16 95/60 L 92 Room Air 04/23/23 08:00 Room Air 04/23/23 03:51 36.4 C L 90 18 96/59 L 94 Room Air
--- NOTE | 2023-04-23 14:42 | Cardiology Progress Note ---
Date of Service April 23, 2023 Assessment & Plan (1) Paroxysmal atrial fibrillation: Plan: . (2) RBBB (right bundle branch block): Plan: * Patient with history of stroke in 2013. MRI this admission with finding of right MCA territory encephalomalacia. * CHADsVasc score of 5 for risk factors of female, age > 65, HTN, past stroke (2 points). * Continue metoprolol tartrate 12.5 mg BID and Eliquis . * Echo on 04/16 revealed LVEF of 65-70%, mild LA dilatation, moderate MAC Continue metoprolol tartrate 12.5 mg BID. Hold parameters adjusted for SBP < 90mmHg. Continue amiodarone 200mg TID. Continue Eliquis. Admission and Anticipated Discharge Date Admission Date: April 16, 2023 Subjective Patient seen and examined at the bedside. Feeling well from a cardiovascular perspective. Denies chest pain or palpitations. Telemetry reveals atrial fibrillation with heart rates up to 120 bpm. No lightheadedness or dizziness. Intermittently she is not receiving dose of metoprolol due to chronic hypotension. Currently receiving oral amiodarone load. No signs/symptoms of GI/ blood loss. Review of Systems Review of Systems: All systems reviewed & are unremarkable except as noted in Subjective Physical Exam Constitutional: well nourished; no acute distress Respiratory: no respiratory distress and no labored breathing Auscultation: no crackles, no rales, no rhonchi and no wheezes Cardiovascular: Rate/Rhythm: + tachycardic and + irregularly irregular Heart Sounds: normal S1 and normal S2; no murmur Vessels: no JVD Extremities: no edema Gastrointestinal (Abdomen): Inspection/Auscultation: normal bowel sounds; abdomen not distended Percussion/Palpation: abdomen nontender, no guarding, abdomen not rigid and + abdomen not soft Neurologic: CN's II-XI intact bilaterally and + focal motor deficit; + does not move all extremities Results & Data Vital Signs (Past 12 Hours) Vital Signs Temp Pulse Resp BP BP Pulse Ox O2 Del Method 04/23/23 11:40 36.3 C L 69 17 93/62 L 98 Room Air 04/23/23 09:17 119/69 04/23/23 08:05 36.5 C 86 16 95/60 L 92 Room Air 04/23/23 08:00 Room Air 04/23/23 03:51 36.4 C L 90 18 96/59 L 94 Room Air Laboratory Results Comprehensive Metabolic Panel 04/23/23 Range/Units 06:22 Sodium 137 (136-145) mmol/L Potassium 4.1 (3.5-5.1) mmol/L Chloride 102 (98-107) mmol/L Carbon Dioxide 30 (21-32) mmol/L BUN 24 H (6-23) mg/dl Creatinine 0.67 (0.6-1.2) mg/dl Glucose 86 (70-99(Fasting)) mg/dl Calcium 8.2 L (8.6-10.3) mg/dl Intake and Output 04/22/23 04/23/23 04/23/23 22:59 06:59 14:59 Intake Total 240 / 770 50 / 770 780 / 780 Output Total 751 150 / 751 651 / 651 Balance 239 / 19 -100 / 19 129 / 129 Intake: Oral 240 / 770 50 / 770 780 / 780 Output: Urine Amount (Catheter) 150 / 750 650 / 650 External 150 / 750 650 / 650 # Bowel Movements Other: # Unmeasured Voids 1 1 2 Weight 74.6 kg Weight Measurement Method Built in [facility]
[2023-04-23] MEDS: SIMVASTATIN 20 MG TAB PO SCH (20:02)
[2023-04-24] MEDS: LEVOTHYROXINE SODIUM 100 MCG TABLET PO SCH (05:52)
[2023-04-24 07:45] LABS: BUN Creatinine Ratio 34.4 (10-20); Creatinine Clr Calc Pharmacy 82.1 ml/min; Est GFR (African American) 103.3 ml/min; Est GFR (Non-African American) 89.2 ml/min; Magnesium 1.8 mg/dl (1.7-2.4); Phosphorus 3.3 mg/dl (2.5-4.9); Potassium 4.1 mmol/L (3.5-5.1)
[2023-04-24] MEDS: ASPIRIN 81 MG ECTAB PO SCH (07:49)
[2023-04-24] MEDS: APIXABAN 5 MG TABLET PO SCH ×2 (07:49→20:10)
[2023-04-24] MEDS: METOPROLOL TARTRATE 25 MG TAB PO SCH ×2 (07:49→20:11)
[2023-04-24] MEDS: LOSARTAN POTASSIUM 25 MG TAB PO SCH (07:49)
[2023-04-24] MEDS: MAGNESIUM OXIDE 400 MG TAB PO SCH ×2 (07:49→20:10)
[2023-04-24] MEDS: AMIODARONE 200 MG TAB PO SCH ×3 (07:49→17:28)
[2023-04-24 08:32] LABS: Calcium 8.4 mg/dl (8.6-10.3)
--- NOTE | 2023-04-24 15:00 | Hospitalist Progress Note ---
Date of Service April 24, 2023 Assessment & Plan (1) Stroke-like symptom: Plan: 72 to F with past medical history significant for CVA, hypertension, hyperlipidemia, hypothyroidism comes because of weakness and not able to lift her right upper extremity for last few days [employer]. Arun Wilkins she felt little dizzy and weak but that got improved. But again last few days having weakness and having difficulty lifting her right upper extremity. When she had a stroke she had weakness on the left side. She ambulates using cart. She is being managed for the following: Right upper extremity weakness Ambulatory dysfunction Stroke protocol ordered, CT head and MRI brain without acute CVA. Neurology evaluated, likely axillary nerve injury likely traumatic cause [bruising present in the axilla]. Cervical spine cause without pain or radicular symptoms is less likely. Neuro recs were shoulder x-ray and C-spine CT which were done, reviewed. EMG in 6 weeks if weakness does not improve. Shoulder x-ray with chronic rotator cuff tear, follow-up Ortho on discharge. 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 History of CVA: Continue home aspirin and statin. A-fib RVR: Noted on telemetry 04/20/2023 AM, patient was asymptomatic. Cardio evaluated, currently on metoprolol, amiodarone and Eliquis. 04/22 AM, patient reverted back to A-fib RVR. Received 1 dose of digoxin 04/22. Monitor and replete electrolytes. In A flutter, rates better controlled today. Cardiology on board, appreciate recommendation. Prolonged QTc: QTc elevated at presentation, currently improved. Avoid QT prolonging drugs as able. Hypothyroidism: Continue home Synthroid Hypertension: Blood pressure on the lower side due to cardiac medications being added. Continue to monitor. Lower extremity edema: Improved, echo reviewed. Troponin elevated: Likely demand ischemia, echo reviewed. Cardiology evaluated, not suggestive of ACS. Continue outpatient aspirin, losartan, simvastatin. DVT prophylaxis: Patient on Eliquis Disposition: To rehab when cleared per cardiology. Admission and Anticipated Discharge Date Admission Date: April 16, 2023 Subjective Patient was seen and examined at bedside. Patient was sitting up in chair, on room air, NAD, reports no new acute overnight. Patient reports eating okay and moving bowels okay. Patient cannot raise her RUE above shoulder level but is able to function with her right upper extremity. Patient reports no pain at this point. Telemetry review w/ pt in atrial flutter w/ rates in 90s to 100s. Physical Exam Physical Exam: GENERAL: Alert and oriented x3. NAD, on RA. Overweight HEENT: No pallor, no icterus. Pupils equal, round and reactive to light. Oral mucosa moist. NECK: No JVD, no neck masses. HEART: S1 and S2 heard. irregular rate and rhythm. tachycardia. + murmur, no gallop. RESPIRATORY SYSTEM: Normal AP diameter. No accessory muscle use. No wheezing, no crackles. ABDOMEN: Soft, bowel sounds present, nontender, no distention. CENTRAL NERVOUS SYSTEM: No facial droop. Speech is clear. Obeys simple com mands. Moves extremities. + RUE weakness noted when trying to lift arm, 3-4/5 in lower extremities, able to move LE extremities and lift them off bed EXTREMITIES: No edema, no erythema seen. Results & Data Results & Data Vital Signs (Past 12 Hours) Vital Signs Temp Pulse Resp BP BP Pulse Ox O2 Del Method 04/24/23 11:56 36.6 C 71 18 91/50 L 96 Room Air 04/24/23 08:01 36.6 C 94 H 16 102/70 92 Room Air 04/24/23 03:36 36.4 C L 82 14 100/63 93 Room Air
--- NOTE | 2023-04-24 16:47 | Cardiology Progress Note ---
Date of Service April 24, 2023 Assessment & Plan (1) Paroxysmal atrial fibrillation: Plan: . (2) RBBB (right bundle branch block): Plan: * Patient with history of stroke in 2013. MRI this admission with finding of right MCA territory encephalomalacia. * CHADsVasc score of 5 for risk factors of female, age > 65, HTN, past stroke (2 points). * Fair heart rate control noted on current medical regimen. * Continue metoprolol tartrate 12.5 mg BID, amiodarone 200 mg 3 times daily, and Eliquis . * Echo on 04/16 revealed LVEF of 65-70%, mild LA dilatation, moderate MAC Admission and Anticipated Discharge Date Admission Date: April 16, 2023 Subjective Patient seen and examined at the bedside. Occasionally notes palpitations with activity. Denies chest discomfort or shortness of breath. Telemetry was atrial fibrillation in the 90s. No orthopnea or PND. Voices concern regarding transfer to rehab in [place]. Review of Systems Review of Systems: All systems reviewed & are unremarkable except as noted in Subjective Physical Exam Constitutional: well nourished; no acute distress Respiratory: no respiratory distress and no labored breathing Auscultation: no crackles, no rales, no rhonchi and no wheezes Cardiovascular: Rate/Rhythm: + irregularly irregular Heart Sounds: normal S1 and normal S2; no murmur Vessels: no JVD Extremities: no edema Gastrointestinal (Abdomen): Inspection/Auscultation: normal bowel sounds; abdomen not distended Percussion/Palpation: abdomen nontender, no guarding, abdomen not rigid and + abdomen not soft Neurologic: CN's II-XI intact bilaterally and + focal motor deficit; + does not move all extremities Results & Data Vital Signs (Past 12 Hours) Vital Signs Temp Pulse Resp BP Pulse Ox O2 Del Method 04/24/23 15:42 36.7 C 72 16 99/64 L 95 Room Air 04/24/23 11:56 36.6 C 71 18 91/50 L 96 Room Air 04/24/23 08:01 36.6 C 94 H 16 102/70 92 Room Air
[2023-04-24] MEDS: SIMVASTATIN 20 MG TAB PO SCH (20:10)
[2023-04-25] MEDS: LEVOTHYROXINE SODIUM 100 MCG TABLET PO SCH (05:30)
[2023-04-25 07:55] LABS: BUN Creatinine Ratio 32.6 (10-20); Calcium 8.5 mg/dl (8.6-10.3); Creatinine Clr Calc Pharmacy 59.8 ml/min; Est GFR (African American) 78.2 ml/min; Est GFR (Non-African American) 67.5 ml/min; Magnesium 1.9 mg/dl (1.7-2.4); Potassium 4.6 mmol/L (3.5-5.1)
[2023-04-25] MEDS: AMIODARONE 200 MG TAB PO SCH ×2 (07:58→11:44)
[2023-04-25] MEDS: LOSARTAN POTASSIUM 25 MG TAB PO SCH (07:58)
[2023-04-25] MEDS: MAGNESIUM OXIDE 400 MG TAB PO SCH ×2 (07:58→19:54)
[2023-04-25] MEDS: METOPROLOL TARTRATE 25 MG TAB PO SCH (07:58)
[2023-04-25] MEDS: ASPIRIN 81 MG ECTAB PO SCH (07:58)
[2023-04-25] MEDS: APIXABAN 5 MG TABLET PO SCH ×2 (07:58→19:54)
--- NOTE | 2023-04-25 13:48 | Cardiology Progress Note ---
Date of Service April 25, 2023 Assessment & Plan (1) Paroxysmal atrial fibrillation: (2) RBBB (right bundle branch block): (3) Stroke-like symptom: Plan History of stroke in 2013. MRI this admission with finding of right MCA territory encephalomalacia. Atrial fibrillation/flutter, ongoing since April 22, 2023. CHADsVasc score of 5 for risk factors of female, age > 65, HTN, past stroke (2 points). Echo on 04/16 revealed LVEF of 65-70%, mild LA dilatation, moderate MAC RECOMMENDATIONS/PLAN: Decrease amiodarone to 200 mg twice per day Change beta-aden therapy to Toprol XL, increased dose of 25 mg twice per day. Continue Eliquis anticoagulation Change/lower statin therapy from simvastatin 20 mg/day to atorvastatin 10 mg/day Hold losartan if hypotensive Increase activity as tolerated. Outpatient cardiology follow-up in 1-2 weeks, with EKG. Admission and Anticipated Discharge Date Admission Date: April 16, 2023 Supervising Physician Co-Signing Physician Notes Patient seen examined the bedside. Borderline rate control noted on telemetry. Patient denies palpitations. No chest discomfort or heaviness. Voices concern regarding transfer to rehab. Blood pressure borderline hypotensive. PE: VSS. Gen: NAD, AAOx3. Heart: Irregular rhythm, normal S1-S2. Lungs: Clear bilateral, no rales, rhonchi, wheeze. Extremities: No edema. A/p: Agree with above PA-C history, physical exam, assessment and plan. Will reduce amiodarone 200 mg twice daily for the next 7 to 10 days. Titrate Toprol- XL to 25 mg twice daily to improve rate control. Eliquis will be continued for anticoagulation. No further inpatient cardiac testing or intervention recommended at this time. Outpatient cardiology follow-up in 2 weeks. Subjective Patient seen and examined. Chart, medications, telemetry reviewed. Telemetry reveals atrial fibrillation/flutter with heart rates predominantly in the 90s to low 100s, currently in the 80s. Patient has been in atrial fibrillation/flutter since April 22, 2023. No chest pain. No palpitations. No shortness of breath. Notes eating more solid food without choking. No orthopnea or PND. No lower extremity peripheral edema. No dizziness or near syncope. No fevers or chills. Review of Systems Review of Systems: Complete review of systems is otherwise as stated above, negative, or noncontributory. Physical Exam Physical Exam: General: A&Ox3. NAD, anxious. HENT: Normocephalic. Atraumatic. Neck: No carotid bruits. No JVD. Heart: Irregularly irregular at 90 bpm. No murmur appreciated. Lungs: Clear to auscultation. Abdomen: +BS. Soft. Nontender. No masses or organomegaly. Extremities: No clubbing, cyanosis, or significant edema. Pulses: radial=2/4, posterior tibial=1-2/4. Results & Data Vital Signs (Past 12 Hours) Vital Signs Temp Pulse Resp BP BP Pulse Ox O2 Del Method 04/25/23 11:34 36.7 C 74 18 96/65 L 96 Room Air 04/25/23 08:00 Room Air 04/25/23 07:05 36.4 C L 89 18 102/67 97 Room Air 04/25/23 03:36 36.7 C 76 18 97/66 L 95 Room Air Laboratory Results Comprehensive Metabolic Panel 04/25/23 Range/Units 06:40 Sodium 140 (136-145) mmol/L Potassium 4.6 (3.5-5.1) mmol/L Chloride 105 (98-107) mmol/L Carbon Dioxide 32 (21-32) mmol/L BUN 28 H (6-23) mg/dl Creatinine 0.86 (0.6-1.2) mg/dl Glucose 90 (70-99(Fasting)) mg/dl Calcium 8.5 L (8.6-10.3) mg/dl Intake and Output 04/24/23 04/25/23 04/25/23 22:59 06:59 14:59 Intake Total 200 / 620 Output Total 350 / 1350 600 / 1350 700 / 700 Balance -350 / -730 -400 / -730 -700 / -700 Intake: Oral 200 / 620 Output: Urine 350 / 750 700 / 700 Urine Amount (Catheter) 600 / 600 External 600 / 600 Other: Weight 71.3 kg
--- NOTE | 2023-04-25 15:16 | Hospitalist Progress Note ---
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 Arun Wilkins she felt little dizzy and weak but that got improved. But again last few days having weakness and having difficulty lifting her right upper extremity. When she had a stroke she had weakness on the left side. She ambulates using cart. She is being managed for the following: Right upper extremity weakness Ambulatory dysfunction Stroke protocol ordered, CT head and MRI brain without acute CVA. Neurology evaluated, likely axillary nerve injury likely traumatic cause [bruising present in the axilla]. Cervical spine cause without pain or radicular symptoms is less likely. Neuro recs were shoulder x-ray and C-spine CT which were done, reviewed. EMG in 6 weeks if weakness does not improve. Shoulder x-ray with chronic rotator cuff tear, follow-up Ortho on discharge. 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 History of CVA: Continue home aspirin and statin. A-fib RVR: Noted on telemetry 04/20/2023 AM, patient was asymptomatic. Cardio evaluated, currently on metoprolol, amiodarone and Eliquis. 04/22 AM, patient reverted back to A-fib RVR. Received 1 dose of digoxin 04/22. Monitor and replete electrolytes. In A flutter, rates better controlled today. Cardiology on board, appreciate recommendation. Prolonged QTc: QTc elevated at presentation, currently improved. Avoid QT prolonging drugs as able. Hypothyroidism: Continue home Synthroid Hypertension: Blood pressure on the lower side due to cardiac medications being added. Continue to monitor. Lower extremity edema: Improved, echo reviewed. Troponin elevated: Likely demand ischemia, echo reviewed. Cardiology evaluated, not suggestive of ACS. Continue outpatient aspirin, losartan, simvastatin. DVT prophylaxis: Patient on Eliquis Disposition: To rehab when cleared per cardiology. Admission and Anticipated Discharge Date Admission Date: April 16, 2023 Subjective Patient was seen and examined at bedside. Patient was sitting up in bed, on room air, NAD, reports no new acute overnight. Patient reports eating okay and moving bowels okay. Patient cannot raise her RUE above shoulder level but is able to function with her right upper extremity. Patient reports no pain at this point. Telemetry review w/ pt in atrial flutter w/ rates in 80s to 100s. Physical Exam Physical Exam: GENERAL: Alert and oriented x3. NAD, on RA. Overweight HEENT: No pallor, no icterus. Pupils equal, round and reactive to light. Oral mucosa moist. NECK: No JVD, no neck masses. HEART: S1 and S2 heard. irregular rate and rhythm. + murmur, no gallop. RESPIRATORY SYSTEM: Normal AP diameter. No accessory muscle use. No wheezing, no crackles. ABDOMEN: Soft, bowel sounds present, nontender, no distention. CENTRAL NERVOUS SYSTEM: No facial droop. Speech is clear. Obeys simple commands. Moves extremities. + RUE weakness noted when trying to lift arm, 3- 4/5 in lower extremities, able to move LE extremities and lift them off bed EXTREMITIES: No edema, no erythema seen. Results & Data Results & Data Vital Signs (Past 12 Hours) Vital Signs Temp Pulse Resp BP BP Pulse Ox O2 Del Method 04/25/23 11:34 36.7 C 74 18 96/65 L 96 Room Air 04/25/23 08:00 Room Air 04/25/23 07:05 36.4 C L 89 18 102/67 97 Room Air 04/25/23 03:36 36.7 C 76 18 97/66 L 95 Room Air
[2023-04-25] MEDS: METOPROLOL SUCC 25MG EXT REL TAB PO SCH (21:26)
[2023-04-26] MEDS: LEVOTHYROXINE SODIUM 100 MCG TABLET PO SCH (05:46)
[2023-04-26] MEDS: LOSARTAN POTASSIUM 25 MG TAB PO SCH (08:16)
[2023-04-26] MEDS: APIXABAN 5 MG TABLET PO SCH (08:16)
[2023-04-26] MEDS: ASPIRIN 81 MG ECTAB PO SCH (08:16)
[2023-04-26] MEDS: MAGNESIUM OXIDE 400 MG TAB PO SCH (08:16)
[2023-04-26] MEDS ORDERED: ATORVASTATIN 10 MG TAB PO SCH (09:00)
[2023-04-26] MEDS ORDERED: AMIODARONE 200 MG TAB PO SCH (09:00)
[2023-04-26] MEDS: METOPROLOL SUCC 25MG EXT REL TAB PO SCH (10:37)
--- NOTE | 2023-04-26 10:43 | Cardiology Progress Note ---
Date of Service April 26, 2023 Assessment & Plan (1) Paroxysmal atrial fibrillation: (2) RBBB (right bundle branch block): (3) Stroke-like symptom: Plan History of stroke in 2013. MRI this admission with finding of right MCA territory encephalomalacia. Paroxysmal atrial fibrillation/flutter, ongoing since April 22, 2023. CHADsVasc score of 5 points. Echo on 04/16 revealed LVEF of 65-70%, mild LA dilatation, moderate MAC RECOMMENDATIONS/PLAN: Continue amiodarone at 200 mg twice per day Continue Toprol XL at 25 mg twice per day. Continue Eliquis anticoagulation 5 mg twice a day Hold losartan for hypotensive Simvastatin 20 mg/day changed to atorvastatin 10 mg/day this admission Increase activity as tolerated. Outpatient cardiology follow-up in 2 weeks, with EKG. Possible future cardioversion discussed, if rhythm does not spontaneously convert. Admission and Anticipated Discharge Date Admission Date: April 16, 2023 Supervising Physician Co-Signing Physician Notes Patient seen examined the bedside. Atrial fibrillation/flutter with heart rate in the 90s on telemetry. Patient denies palpitations. No chest discomfort or heaviness. Blood pressure remains borderline hypotensive. PE: VSS. Gen: NAD, AAOx3. Heart: Irregular rhythm, normal S1-S2. Lungs: Clear bilateral, no rales, rhonchi, wheeze. Extremities: No edema. A/p: Agree with above PA-C history, physical exam, assessment and plan. Continue amiodarone 200 mg twice daily.reduced dose to 200 mg once daily in 10 to 14 days. Continue Toprol-XL to 25 mg twice daily. Eliquis for anticoagulation. No further inpatient cardiac testing or intervention recommended at this time. Outpatient cardiology follow-up in 2 weeks. Cardiology will sign off. Please call with further concerns/questions. Subjective Patient seen and examined. Chart, medications, telemetry reviewed. No chest pain. No tachypalpitations. No shortness of breath. No orthopnea or PND. No edema. No dizziness or near syncope. No fevers or chills. Telemetry: Atrial flutter/fibrillation since April 22, 2023. Heart rates predominantly 70-110 bpm. Review of Systems Review of Systems: Complete review of systems is otherwise as stated above, negative, or noncontributory. Physical Exam Physical Exam: General: A&Ox3. NAD, anxious. HENT: Normocephalic. Atraumatic. Neck: No carotid bruits. No JVD. Heart: Irregularly irregular at 90 bpm. No murmur appreciated. Lungs: Clear to auscultation. Abdomen: +BS. Soft. Nontender. No masses or organomegaly. Extremities: No clubbing, cyanosis, or significant edema. Pulses: radial=2/4, posterior tibial=1-2/4. Results & Data Vital Signs (Past 12 Hours) Vital Signs Temp Pulse Resp BP BP Pulse Ox O2 Del Method 04/26/23 07:17 36.6 C 76 16 100/72 96 Room Air 04/26/23 03:51 36.5 C 100 H 17 97/63 L 95 Room Air 04/25/23 23:40 36.4 C L 80 18 107/73 95 Room Air Laboratory Results Intake and Output 04/25/23 04/26/23 04/26/23 22:59 06:59 14:59 Intake Total 100 / 780 Output Total 200 / 1200 200 / 1200 1535 / 1535 Balance -100 / -420 -200 / -420 -1535 / -1535 Intake: Oral 100 / 780 Output: Urine 200 / 1100 200 / 1100 935 / 935 Other 600 / 600 Other: # Unmeasured Voids 1 Weight 72.3 kg Weight Measurement Method Built in [facility]
--- NOTE | 2023-04-26 12:44 | Discharge Summary ---
Date of Service April 26, 2023 Admission HPI Per Admitting Provider 72-year-old female with past medical history significant for CVA, hypertension, hyperlipidemia, hypothyroidism comes because of weakness and not able to lift her right upper extremity for last few days. Arun Wilkins she felt little dizzy and weak but that got improved. But again last few days having weakness and having difficulty lifting her right upper extremity. When she had a stroke she had weakness on the left side. She ambulates using cart. She thinks she was holding cart tightly with the right hand which is causing her current problem .denies any headache. Vision is okay. No runny nose or sore throat. No cough. No fevers. No chest pain or shortness of breath. No nausea. No abdominal pain. Normal bowel and bladder movements. Resting comfortably and hemodynamically stable. Past medical history. As mentioned above Past surgical history. Partial thyroidectomy. Ankle surgery. Cataracts Social history. No smoking. No alcohol use. No drug use. Family history. Mother had uterine cancer. Father had diabetes. Admission Exam Per Admitting Provider General- Not in distress Head- atraumatic Eyes- PERRL, EOMI. ENT- oropharynx clear Neck- supple, no JVD. Lungs- clear to auscultation no wheezing or crackles. Heart- regular rhythm; Murmur in mitral area, no gallop. Abdomen- normal bowel sounds, soft, nontender, no distension Extremities- lower extremity edema present, no erythema seen Neuro- alert, oriented x 3; PERRL, EOMI; no facial palsy; no dysarthria; power 4/5 in right upper extremity 5/5 in left upper extremity, 3-4/5 in lower extremities.; sensations intact. Skin- warm & dry Principal Diagnosis Right upper extremity weakness Ambulatory dysfunction A-fib with RVR Discharge Exam GENERAL: Alert and oriented x3. NAD, on RA. Overweight HEENT: No pallor, no icterus. Pupils equal, round and reactive to light. Oral mucosa moist. NECK: No JVD, no neck masses. HEART: S1 and S2 heard. irregular rate and rhythm. + murmur, no gallop. RESPIRATORY SYSTEM: Normal AP diameter. No accessory muscle use. No wheezing, no crackles. ABDOMEN: Soft, bowel sounds present, nontender, no distention. CENTRAL NERVOUS SYSTEM: No facial droop. Speech is clear. Obeys simple commands. Moves extremities. + RUE weakness noted when trying to lift arm, 3- 4/5 in lower extremities, able to move LE extremities and lift them off bed EXTREMITIES: No edema, no erythema seen. Discharge Data Allergies Allergy/AdvReac Type Severity Reaction Status Date / Time No Known Allergies Allergy Verified 04/15/23 20:15 Consultations 04/15/23 23:27 ED Decision to Admit Stat 04/16/23 08:00 Consult Neurology Routine 04/16/23 11:04 Consult Cardiology Routine Ordered Studies 04/15/23 18:03 CT head/brain wo con Stat 04/15/23 21:38 MR brain wo con Stat 04/19/23 14:09 CT neck [CT cervical spine w con] Routine Hospital Course (1) Stroke-like symptom: 72 to F with past medical history significant for CVA, hypertension, hyperlipidemia, hypothyroidism comes because of weakness and not able to lift her right upper extremity for last few days [employer]. Arun Wilkins she felt little dizzy and weak but that got improved. But again last few days having weakness and having difficulty lifting her right upper extremity. When she had a stroke she had weakness on the left side. She ambulates using cart. She was managed fo r the following: Right upper extremity weakness Ambulatory dysfunction Stroke protocol ordered, CT head and MRI brain without acute CVA. Neurology evaluated, likely axillary nerve injury likely traumatic cause [bruising present in the axilla]. Cervical spine cause without pain or radicular symptoms is less likely. Neuro recs were shoulder x-ray and C-spine CT which were done, reviewed. EMG in 6 weeks if weakness does not improve. Shoulder x-ray with chronic rotator cuff tear, follow-up Ortho on discharge. 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 History of CVA: Continue home aspirin and statin. A-fib RVR: Noted on telemetry 04/20/2023 AM, patient was asymptomatic. Cardio evaluated, currently on metoprolol, amiodarone and Eliquis. 04/22 AM, patient reverted back to A-fib RVR. Received 1 dose of digoxin 04/22. Monitor and replete electrolytes. In A flutter, controlled rates Cardiology on board, appreciate recommendation. Prolonged QTc: QTc elevated at presentation, currently improved. Avoid QT prolonging drugs as able. Hypothyroidism: Continue home Synthroid Hypertension: Blood pressure on the lower side due to cardiac medications being added. Continue to monitor. Lower extremity edema: Improved, echo reviewed. Troponin elevated: Likely demand ischemia, echo reviewed. Cardiology evaluated, not suggestive of ACS. Continue outpatient aspirin, losartan, simvastatin. DVT prophylaxis: Patient on Eliquis Patient is being discharged to acute rehab with following instruction at the point of discharge: Follow-up with your primary care physician within a week time and likely you will need labs CBC/CMP/magnesium/phosphorus. For your chronic rotator cuff tear evident in right shoulder x-ray this admission, establish and follow-up with orthopedics upon discharge. If your right upper extremity weakness does not improve by about 5 to 6 weeks, you might need EMG test as an outpatient. Coordinate with your PCP office to set up the test. 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 For your A-fib RVR, you have been started on Eliquis/metoprolol/amiodarone. Follow-up with cardiology in 2 weeks time upon discharge. EKG in 1 to 2 weeks time. Take your medications as prescribed. Please make sure that you are able to get your medications today by calling your pharmacy before you leave the hospital so that your treatment continuity is not broken. Home Health Attestation I certify that this patient is under my care and that I, or a physicians branch assistant working with me, had a face to-face encounter that meets the home health [id number] encounter requirements with this patient. The encounter with the patient was in whole, or in part, for the following medical condition, which is the primary reason for home health care (list medical condition): I certify that, based on my findings, the following services are medically ne cessary home health services: My clinical findings support the need for the above services because: Further, I certify that my clinical findings support that this patient is homebound (i.e. absences from home require considerable and taxing effort and are for medical reasons or protestant services or infrequently or of short duration when for other reasons) because: Certification for Home Health Services: Based on the above findings, I certify that this patient is confined to the home and needs intermittent mcc care, physical therapy and/or speech therapy or continues to need occupational therapy. The patient is under my care, and I have initiated the establishment of the plan of care. This patient will be followed by a physician who will periodically review the plan of care. Total Time Total Time Spent Total Time Spent (In Minutes): 45 Discharge Plan Discharge Items Patient Disposition: Transfer Inpatient Rehab Fac Reason For Visit: STROKE-LIKE SYMPTOMS Discharge Diagnosis: Right upper extremity weakness Ambulatory dysfunction A-fib with RVR Activity: Resume your previous activity Non-emergency contact: Primary Care Provider Call non-emergency contact if: you have any medication questions, your symptoms worsen and your temperature is above 101.5 Follow-up/Referrals: Bob Huynh [Primary Care Provider] - Diet: Heart Healthy Diet Texture: Dental soft (bite-sized) Addtl Attending Provider Instructions: Follow-up with your primary care physician within a week time and likely you will need labs CBC/CMP/magnesium/phosphorus. For your chronic rotator cuff tear evident in right shoulder x-ray this admission, establish and follow-up with orthopedics upon discharge. If your right upper extremity weakness does not improve by about 5 to 6 weeks, you might need EMG test as an outpatient. Coordinate with your PCP office to set up the test. 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 For your A-fib RVR, you have been started on Eliquis/metoprolol/amiodarone. Follow-up with cardiology in 2 weeks time upon discharge. EKG in 1 to 2 weeks time. Take your medications as prescribed. Please make sure that you are able to get your medications today by calling your pharmacy before you leave the hospital so that your treatment continuity is not broken. Pending Studies at Discharge: No Stand-Alone Forms: My [facility] Skilled Items Patient informed of condition?: Yes DNR: No Discharge Level of Care: Acute rehab Communicable Disease: No Discharge Prognosis: Stable Lines: None Urinary Catheter: No Medications and DC Order Prescriptions: New Eliquis 5 mg Tablet 5 mg PO BID Qty: 60 0RF amiodarone 200 mg Tablet 200 mg PO BID Qty: 60 0RF atorvastatin 10 mg Tablet 10 mg PO QAM Qty: 30 0RF metoprolol succinate 25 mg Tablet Extended Release 24 Hr 25 mg PO BID Qty: 60 0RF nitroglycerin [Nitrostat] 0.4 mg Tablet, Sublingual 0.4 mg sublingual UD PRN (Reason: chest pain) Qty: 14 0RF magnesium oxide 400 mg (241.3 mg magnesium) Tablet 400 mg PO BID Qty: 60 0RF Continued acetaminophen [Tylenol] 325 mg Tablet 650 mg PO Q4H PRN (Reason: PAIN/FEVER) omega-3 fatty acids 1,000 mg Capsule 1,000 mg PO BID aspirin 81 mg tablet,delayed release (DR/EC) 81 mg PO QAM levothyroxine 100 mcg tablet 100 mcg PO QAM losartan 25 mg Tablet 25 mg PO DAILY Discontinued simvastatin 20 mg tablet 20 mg PO HS Discharge Orders: Discharge Order (Routine); Ordered 04/26/23 Ordered By: Andrew Finn Admission Data Admit Date/Time: 04/16/23 04:33 Attending Provider: Andrew Finn Admit Provider: Walter Alexadnra Primary Care Provider: Bob Huynh Other Providers: Walter Alexandra; India Mireles; Ray Pratt; India Neff; Sg Wei; Glen Santoyo; Harshal Pereyra; Bob Mckeon; Diana Reyna; Zach Ortez; Guru Esquivel; Mushtaq Jarquin; Mark Monroe; Beverley Hayes; Kay Mcdonald; Bob Salazar; Ray Gallegos; [facility]
== END 2023-04-26 16:02 | DRG 92 ==
LOC: ED 17:21 → SUATTDRO 04-16 04:33 → EDINP 04-16 04:33 → 2S 04-16 05:26

== ENCOUNTER 2023-06-21 14:23 | Inpatient (IN) ==
[2023-06-21 15:25] LABS: Basophils # (auto) 0.03 K/uL (0.00-0.20); Basophils % (auto) 0.5 %; Eosinophils # (auto) 0.06 K/uL (0.00-0.50); Hematocrit (blood only) 38.5 % (37.0-47.0); Hemoglobin 12.3 g/dl (12.0-16.0); Immature Granulocytes # (auto) 0.02 K/uL (0.01-0.20); Immature Granulocytes % (auto) 0.3 %; Lymphocytes # (auto) 0.83 K/uL (1.20-3.40); Lymphocytes % (auto) 13.3 %; Mean Corpuscular Hemoglobin 29.4 pg (25.0-34.0); Mean Corpuscular Hgb Conc 31.9 g/dL (32.0-36.0); Mean Corpuscular Volume 92.1 fL (80.0-100.0); Mean Platelet Volume 10.1 fL (9.4-12.4); Monocytes # (auto) 0.51 K/uL (0.11-0.59); Monocytes % (auto) 8.2 %; Neutrophils # (auto) 4.79 K/uL (1.40-6.50); Neutrophils % (auto) 76.7 %; Platelet Count 129 K/uL (130-400); RDW Standard Deviation 51.2 fL (36.4-46.3); Red Blood Count 4.18 M/uL (4.20-5.40); White Blood Count 6.24 K/ul (4.8-10.8)
[2023-06-21 15:44] LABS: Alanine Aminotransferase 73 U/L (7-52); Albumin Globulin Ratio 1.5 (0.9-2); Alkaline Phosphatase 115 U/L (34-104); Anion Gap 5 (3-11); Aspartate Aminotransferase 40 U/L (13-39); BUN Creatinine Ratio 34.7 (10-20); Bilirubin,Total 0.6 mg/dl (0.2-1.0); Blood Urea Nitrogen 26 mg/dl (6-23); Calcium 9.2 mg/dl (8.6-10.3); Carbon Dioxide 30 mmol/L (21-32); Chloride 104 mmol/L (98-107); Est GFR (African American) 92.3 ml/min; Est GFR (Non-African American) 79.6 ml/min; Globulin 2.7 gm/dl (2.5-4.0); Glucose 82 mg/dl (70-99(Fasting)); Potassium 4.5 mmol/L (3.5-5.1); Sodium 139 mmol/L (136-145); Total Protein 6.7 gm/dl (6.0-8.3)
[2023-06-21 15:47] LABS: INR 1.2 (0.9-1.1); Partial Thromboplastin Ratio 1.4; Partial Thromboplastin Time 39 Seconds (21-31); Prothrombin Time 12.7 Seconds (9.0-12.0)
--- NOTE | 2023-06-21 16:23 | XRay Report ---
XR chest 1V not portable CLINICAL HISTORY: Chest pain, nonspecific COMPARISON STUDY: Chest radiograph April 15, 2023. FINDINGS: Patient is mildly rotated. There is no pneumothorax. There are small bilateral pleural effu sions. Moderate cardiomegaly is noted. There is mild interstitial pulmonary edema. A few nodular opac ities measuring up to 1.5 cm project over the right lower lung. IMPRESSION: 1. Cardiomegaly with mild interstitial pulmonary edema. Small bilateral pleural effusions. 2. A few nodular opacities which project over the right lower lung. These are indeterminate and radio graphic follow-up to ensure resolution is recommended. ACT 112: Negative or not required by law. Electronically signed by: Ras Bear M.D. 06/21/2023 4:22 PM
--- NOTE | 2023-06-21 16:34 | Emergency Department Note ---
Impression & Plan Pulmonary edema, Bradycardia ED Provider Note NAME: MAXIMO KHAN AGE: 72 SEX: F : 1950 ARRIVES VIA: Walk-In INFORMANT: Patient, ED PROVIDER(S): Matheus Pino DO CHIEF COMPLAINT: Shortness of breath HPI: The patient is a 72-year-old female who presented to the emergency department for an evaluation of difficulty breathing. The patient had a follow- up appointment today with cardiology. She was recently admitted to our facility for new onset atrial fibrillation. The patient was started on blood thinners and was also started on amiodarone. She was to decrease her amiodarone use but apparently she had continued all of her medications as they are prescribed on discharge. She was seen in the office today by the [facility] programmer or analyst. She was felt to be in pulmonary edema. She was also found to be in bradycardia and was felt to be in need of an evaluation for pacemaker. She was sent to the emergency department for admission. At this time the patient states she feels okay at rest. She denies having any chest pain but does complain of orthopnea. She also complains of lower extremity swelling. ROS: See above HPI for pertinent positives & negatives. A total of 10 systems reviewed and were otherwise negative. PAST MEDICAL HISTORY: See Below PAST SURGICAL HISTORY: See Below FAMILY HISTORY: See Below SOCIAL HISTORY: See Below HOME MEDICATIONS: See Below ALLERGIES: See Below VITALS: See Below PHYSICAL EXAMINATION: GENERAL: Patient is awake alert in no acute distress patient is resting comfortably and showing no signs of anxiety EYES: The conjunctivae are clear. The pupils are round and reactive. EARS, NOSE, MOUTH AND THROAT: The nose is without any evidence of any deformity. NECK: The neck is nontender and supple. RESPIRATORY: Normal respiratory effort was noted. There were rales at both bases. There is mild conversational dyspnea. CARDIOVASCULAR: Bradycardic and regular heart sounds were noted to auscultation. There is no definite murmur. GASTROINTESTINAL: The abdomen is soft. Abdomen is nontender. MUSCULOSKELETAL/EXTREMITIES: There is no evidence of gross deformity full range of motion is noted in the hips and shoulders. SKIN: Pedal edema was noted bilaterally. Skin was warm and dry NEUROLOGIC: Patient is awake alert and oriented x3 MEDICAL DECISION MAKING: The patient is a 72-year-old male who presented to the emergency department for an evaluation of difficulty breathing. The patient describes orthopnea as well as swelling in her legs. The patient was evaluated by the outpatient programmer or analyst. Patient was recently admitted to our facility for A-fib with RVR. It sounds that the patient may have not decreased her amiodarone dose. She is taking Eliquis. She appears to be in pulmonary edema which could be related to the bradycardia. The patient was sent to the emergency department for further evaluation as well as admission for evaluation of pacemaker placement as well as diuresis. The patient was treated with Lasix in the emergency department. I discussed patient's condition with the on-call [facility]. Triage Nursing notes reviewed. Prior medical records reviewed Vital Signs: reviewed and remarkable for elevated blood pressure. Differential diagnosis: Reactive airway disease, pneumonia, pneumothorax, COPD, CHF, infections, cardiac ischemia, pulmonary embolism, musculoskeletal, gastrointestinal, as well as other pathologies. ER treatment provided: See below Diagnostics interpreted by me: ECG: EKG was obtained in the emergency department. My interpretation is sinus bradycardia at 42 bpm. Right bundle branch block pattern was noted. There is no PVCs. This was compared to a tracing from April 22, 2023. Sinus bradycardia has replaced rapid atrial fibrillation compared to previous tracing. The bundle branch block is not new. Cardiac Monitoring: An order was placed for continuous cardiac monitoring. The monitor shows a rate of 46 bpm with sinus bradycardia. Laboratory studies: As stated above and show below. Imaging studies: See below. Radiographic imaging was reviewed by myself Consultation(s): I discussed his case with Jacque who is on-call for the [facility] group. Past Med/Surg History Medical History RBBB (right bundle branch block) Paroxysmal atrial fibrillation Abnormal EKG Elevated troponin I level Stroke-like symptom Weakness CVA (cerebral vascular accident) Social History Smoking Status: Never smoker Hx Alcohol Use: No Hx Substance Use: No Preferred Language: Urdu Communication Ability: Effective Machine Scallop Cutter Required: No Beliefs That Will Affect Care: None Current Living Situation: Alone Feels Safe at Home: Yes Assistive Devices: None Allergies Allergies Allergy/AdvReac Type Severity Reaction Status Date / Time No Known Allergies Allergy Verified 04/15/23 20:15 Home Meds Home Medications Medication Instructions Recorded Confirmed acetaminophen 325 mg tablet 650 mg PO Q4H PRN PAIN/FEVER 04/15/23 06/21/23 (Tylenol) aspirin 81 mg tablet,delayed 81 mg PO QAM 04/15/23 06/21/23 release levothyroxine 100 mcg tablet 100 mcg PO QAM 04/15/23 06/21/23 omega-3 fatty acids 1,000 mg 1,000 mg PO BID 04/15/23 06/21/23 capsule metoprolol succinate 25 mg 12.5 mg PO BID 06/21/23 06/21/23 tablet,extended release 24 hr Previous Rx's Medication Instructions Recorded amiodarone 200 mg tablet 200 mg PO BID #60 tabs 04/26/23 apixaban 5 mg tablet (Eliquis) 5 mg PO BID #60 tabs 04/26/23 atorvastatin 10 mg tablet 10 mg PO QAM #30 tabs 04/26/23 magnesium oxide 400 mg (241.3 mg 400 mg PO BID #60 tabs 04/26/23 magnesium) tablet nitroglycerin 0.4 mg sublingual 0.4 mg sublingual UD PRN chest 04/26/23 tablet (Nitrostat) pain #14 tabs Results & Data (ED) Vital Signs Vital Signs - 24 hr 06/21/23 14:25 06/21/23 16:30 Temperature 36.8 C Temperature Source Temporal Artery Scan Pulse Rate 84 Pulse Rate [Apical] 46 L Respiratory Rate 18 18 Respiratory Effort / Characteristics Non-Labored Spontaneous Non-Labored Spontaneous Respiratory Depth Normal Normal Respiratory Pattern Regular Blood Pressure 190/72 H Blood Pressure [Right Arm] 164/79 H Blood Pressure Mean 111 Blood Pressure Mean [Right Arm] 107 Blood Pressure Position Sitting Pulse Oximetry 96 96 Oxygen Delivery Method Room Air Room Air Sepsis Recent Fever Within 48 Hours No Sepsis New/Unexplained Change in Mental Status No Sepsis Action Taken by Nursing No Action Required Home Medications Current Medication List: was personally reviewed by me Laboratory Data Attestation: I reviewed the patient's lab results. 06/21/23 15:05 06/21/23 15:05 Lab Results 06/21/23 Range/Units 15:05 WBC 6.24 (4.8-10.8) K/ul RBC 4.18 L (4.20-5.40) M/uL Hgb 12.3 (12.0-16.0) g/dl Hct 38.5 (37.0-47.0) % MCV 92.1 (80.0-100.0) fL MCH 29.4 (25.0-34.0) pg MCHC 31.9 L (32.0-36.0) g/dL RDW Std Deviation 51.2 H (36.4-46.3) fL RDW Coeff of Zulay 15.0 H (11.5-14.5) % Plt Count 129 L (130-400) K/uL MPV 10.1 (9.4-12.4) fL Immature Gran % (Auto) 0.3 % Neut % (Auto) 76.7 % Lymph % (Auto) 13.3 % [place] % (Auto) 8.2 % Eos % (Auto) 1.0 % Baso % (Auto) 0.5 % Neut # (Auto) 4.79 (1.40-6.50) K/uL Lymph # (Auto) 0.83 L (1.20-3.40) K/uL [place] # (Auto) 0.51 (0.11-0.59) K/uL Eos # (Auto) 0.06 (0.00-0.50) K/uL Baso # (Auto) 0.03 (0.00-0.20) K/uL Immature Gran # (Auto) 0.02 (0.01-0.20) K/uL PT 12.7 H (9.0-12.0) Seconds INR 1.2 H (0.9-1.1) APTT 39 H (21-31) Seconds PTT Ratio 1.4 Sodium 139 (136-145) mmol/L Potassium 4.5 (3.5-5.1) mmol/L Chloride 104 (98-107) mmol/L Carbon Dioxide 30 (21-32) mmol/L Anion Gap 5 (3-11) BUN 26 H (6-23) mg/dl Creatinine 0.75 (0.6-1.2) mg/dl Est Cr Clr Drug Dosing Not Reportable Est GFR ( Amer) 92.3 ml/min Est GFR (Non-Af Amer) 79.6 ml/min BUN/Creatinine Ratio 34.7 H (10-20) Glucose 82 (70-99(Fasting)) mg/dl Calcium 9.2 (8.6-10.3) mg/dl Total Bilirubin 0.6 (0.2-1.0) mg/dl AST 40 H (13-39) U/L ALT 73 H (7-52) U/L Alkaline Phosphatase 115 H (34-104) U/L Troponin I High Sens 16.0 H (0-14) pg/ml Total Protein 6.7 (6.0-8.3) gm/dl Albumin 4.0 (3.4-5.0) gm/dl Globulin 2.7 (2.5-4.0) gm/dl Albumin/Globulin Ratio 1.5 (0.9-2) Administered Medications Discontinued Medications Furosemide (Furosemide 40 Mg/4 Ml Vial) 40 mg IV ONE ONE Stop: 06/21/23 16:19 Last Admin: 06/21/23 16:45 Dose: 40 mg Documented By: SELWYN Imaging Data Attestation: I personally reviewed and interpreted this imaging study as follows: My Impression: 1 view chest x-ray was obtained in the emergency department. My interpretation is pulmonary edema, final report below. Radiologist's Impression: Chest X-Ray 06/21/23 14:29 XR chest 1V not portable CLINICAL HISTORY: Chest pain, nonspecific COMPARISON STUDY: Chest radiograph April 15, 2023. FINDINGS: Patient is mildly rotated. There is no pneumothorax. There are small bilateral pleural effusions. Moderate cardiomegaly is noted. There is mild interstitial pulmonary edema. A few nodular opacities measuring up to 1.5 cm project over the right lower lung. IMPRESSION: 1. Cardiomegaly with mild interstitial pulmonary edema. Small bilateral pleural effusions. 2. A few nodular opacities which project over the right lower lung. These are indeterminate and radiographic follow-up to ensure resolution is recommended. ACT 112: Negative or not required by law. Electronically signed by: Ras Bear M.D. 06/21/2023 4:22 PM Discharge Plan Visit Data Chief Complaint: Referred by Doctor Stated Complaint: APHIB, REF BY DOC, BRADYCARDIA, SWELLING ED Provider: Matheus Pino Discharge Problem: Pulmonary edema, Bradycardia Patient Disposition: Being Evaluated by Hospitalist Forms Stand Alone Forms: My [facility] [employer] Prescriptions Prescriptions: No Action acetaminophen [Tylenol] 325 mg Tablet 650 mg PO Q4H PRN (Reason: PAIN/FEVER) omega-3 fatty acids 1,000 mg Capsule 1,000 mg PO BID aspirin 81 mg tablet,delayed release (DR/EC) 81 mg PO QAM levothyroxine 100 mcg tablet 100 mcg PO QAM Eliquis 5 mg Tablet 5 mg PO BID Qty: 60 0RF amiodarone 200 mg Tablet 200 mg PO BID Qty: 60 0RF atorvastatin 10 mg Tablet 10 mg PO QAM Qty: 30 0RF nitroglycerin [Nitrostat] 0.4 mg Tablet, Sublingual 0.4 mg sublingual UD PRN (Reason: chest pain) Qty: 14 0RF magnesium oxide 400 mg (241.3 mg magnesium) Tablet 400 mg PO BID Qty: 60 0RF metoprolol succinate 25 mg tablet extended release 24 hr 12.5 mg PO BID Referrals Referrals: Bob Huynh [Primary Care Provider] - Discharge Problem: Pulmonary edema Qualifiers: Chronicity: acute Qualified Code(s): J81.0 - Acute pulmonary edema
[2023-06-21] MEDS: FUROSEMIDE 40 MG/4 ML VIAL IV ONE (16:45)
--- NOTE | 2023-06-21 17:11 | History & Physical Report ---
Date of Service June 21, 2023 Assessment & Plan (1) Heart failure, diastolic, with acute decompensation: Plan: This is a 72 y/o female with new PAF, on AC, HTN, dyslipidemia, hypothyroidism, and prior CVA who was referred to the ED today from outpatient cardiology for acute heart failure. She notes progressive LE edema over the last ten days. Rhythm has converted from atrial fibrillation with RVR to sinus bradycardia. HF likely triggered by low-output state due to this conversion to sinus bradycardia with underlying tachy-dallas syndrome. - Admit to PCU - IV furosemide given in the ED, repeat in the AM and reassess fluid status - Follow electrolytes with repletion as needed - Repeat ECHO per cardiology recommendations - Cardiology consult noted - input appreciated. 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 Appreciate cardiology input - may need to consider PPM placement this admission (3) Symptomatic bradycardia: Plan: See plan for #2 (4) Hypothyroidism: Plan: Check TSH Continue levothyroxine at outpatient dose for now (5) Dyslipidemia: Plan: Chronic, stable Continue statin (6) Essential hypertension: Plan: Chronic IV Furosemide Beta-aden on hold (7) Paroxysmal atrial fibrillation: Plan: History of CVA in 2013 Continue apixaban for now but will potentially need to hold if PPM placement this admission (8) Dermatitis: Plan: Rash in inguinal folds - Nystatin cream BID Plan Pt seen and reviewed with collaborating physician, Dr. Hernandez. Plan of care discussed and as outlined above. Code Status: Full code DVT Prophylaxis: on apixaban Lenny [place] PA-C History of Present Illness Chief Complaint: leg swelling, falls Primary Care Provider: Bob Huynh This is a 72 y/o female with new PAF, on AC, HTN, dyslipidemia, hypothyroidism, and prior CVA who was referred to the ED today from outpatient cardiology for acute heart failure. Pt was admitted to [facility] 04/15-04/26/23 with stroke-like symptoms but imaging negative for acute CVA. 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 On 04/20/23, pt developed afib with RVR but pt asymptomatic. Pt was treated with amiodarone and discharged on amiodarone 200 mg BID, Toprol XL 25 mg BID, and Eliquis 5 mg BID. She was seen at cardiology today for hospital follow-up and noted progressive LE edema over the last 7-10 days. She is not on chronic diuretics and has been taking the amiodarone and Toprol as directed. In the office, she was noted to have marked sinus bradycardia. She was referred to the ED for admission for management of acute heart failure and EP consult for possible pacemaker placement. Pt reports doing well initially after discharge. However, about ten days ago she started to develop LE edema. This has gradually worsened since then. She had at least one fall that she relates to the edema and a loss of balance. She denies syncopal episodes. She denies chest pain or palpitations. She sleeps propped up at night, and this is no worse than usual. Allergies Allergy/AdvReac Type Severity Reaction Status Date / Time No Known Allergies Allergy Verified 04/15/23 20:15 Home Medications Medication Instructions Recorded Confirmed Type acetaminophen 325 mg tablet 650 mg PO Q4H PRN PAIN/FEVER 04/15/23 06/21/23 History (Tylenol) levothyroxine 100 mcg tablet 100 mcg PO QAM 04/15/23 06/21/23 History omega-3 fatty acids 1,000 mg 1,000 mg PO BID 04/15/23 06/21/23 History capsule amiodarone 200 mg tablet 200 mg PO BID #60 tabs 04/26/23 06/21/23 Rx apixaban 5 mg tablet (Eliquis) 5 mg PO BID #60 tabs 04/26/23 06/21/23 Rx atorvastatin 10 mg tablet 10 mg PO QAM #30 tabs 04/26/23 06/21/23 Rx magnesium oxide 400 mg (241.3 mg 400 mg PO BID #60 tabs 04/26/23 06/21/23 Rx magnesium) tablet nitroglycerin 0.4 mg sublingual 0.4 mg sublingual UD PRN chest 04/26/23 06/21/23 Rx tablet (Nitrostat) pain #14 tabs metoprolol succinate 25 mg 12.5 mg PO BID 06/21/23 06/21/23 History tablet,extended release 24 hr Past Med/Surg History Medical History Essential hypertension Dyslipidemia Hypothyroidism RBBB (right bundle branch block) Paroxysmal atrial fibrillation Abnormal EKG Elevated troponin I level Stroke-like symptom Weakness CVA (cerebral vascular accident) Surgical History History of cataract surgery History of ankle surgery History of partial thyroidectomy Social History Smoking Status: Never smoker Hx Alcohol Use: No Hx Substance Use: No Preferred Language: German Communication Ability: Effective Epic Trainer Required: No Beliefs That Will Affect Care: None Current Living Situation: Alone Feels Safe at Home: Yes Assistive Devices: None Review of Systems Review of Systems: All systems reviewed & are unremarkable except as noted in HPI & below Constitutional: no fever and no chills Eyes: no diplopia Ear, Nose, Mouth, Throat: no nasal congestion, no nasal discharge and no sore throat Respiratory: + dyspnea on exertion (mild); no cough a nd no dyspnea Cardiovascular: + edema; no chest pain, no palpitations and no syncope Gastrointestinal: no abdominal pain, no nausea, no vomiting and no d iarrhea/loose stools Genitourinary: no dysuria and no hematuria Integumentary: no rash and no yellowing of the skin Neurologic: + falls; no syncope and no headache(s) Physical Exam Physical Exam: General: awake, alert, NAD HEENT: PERRL, no scleral icterus Mouth: moist oral mucosa Neck: trachea midline Heart: bradycardic but regular Lungs: faint rales at the bilateral bases but o/w clear Abdomen: soft, obese, +BS Extremities: 2+ pitting edema bilateral LE to knees Neurologic: Ox3, moving all extremities, no focal deficits noted Skin: +erythematous rash in inguinal folds Results & Data Results & Data Vital Signs (Past 12 Hours) Vital Signs Temp Pulse Pulse Resp BP BP Pulse Ox 06/21/23 16:30 46 L 18 164/79 H 96 06/21/23 14:25 36.8 C 84 18 190/72 H 96 O2 Del Method 06/21/23 16:30 Room Air 06/21/23 14:25 Room Air Laboratory Results Laboratory Results - last 24 hr 06/21/23 15:05 WBC 6.24 RBC 4.18 L Hgb 12.3 Hct 38.5 MCV 92.1 MCH 29.4 MCHC 31.9 L RDW Std Deviation 51.2 H RDW Coeff of [place] 15.0 H Plt Count 129 L MPV 10.1 Immature Gran % (Auto) 0.3 Neut % (Auto) 76.7 Lymph % (Auto) 13.3 [place] % (Auto) 8.2 Eos % (Auto) 1.0 Baso % (Auto) 0.5 Neut # (Auto) 4.79 Lymph # (Auto) 0.83 L [place] # (Auto) 0.51 Eos # (Auto) 0.06 Baso # (Auto) 0.03 Immature Gran # (Auto) 0.02 PT 12.7 H INR 1.2 H APTT 39 H PTT Ratio 1.4 Sodium 139 Potassium 4.5 Chloride 104 Carbon Dioxide 30 Anion Gap 5 BUN 26 H Creatinine 0.75 Est Cr Clr Drug Dosing Not Reportable Est GFR ( Amer) 92.3 Est GFR (Non-Af Amer) 79.6 BUN/Creatinine Ratio 34.7 H Glucose 82 Calcium 9.2 Total Bilirubin 0.6 AST 40 H ALT 73 H Alkaline Phosphatase 115 H Troponin I High Sens 16.0 H Total Protein 6.7 Albumin 4.0 Globulin 2.7 Albumin/Globulin Ratio 1.5 Diagnostic Findings Chest X-Ray 06/21/23 14:29 XR chest 1V not portable CLINICAL HISTORY: Chest pain, nonspecific COMPARISON STUDY: Chest radiograph April 15, 2023. FINDINGS: Patient is mildly rotated. There is no pneumothorax. There are small bilateral pleural effusions. Moderate cardiomegaly is noted. There is mild interstitial pulmonary edema. A few nodular opacities measuring up to 1.5 cm project over the right lower lung. IMPRESSION: 1. Cardiomegaly with mild interstitial pulmonary edema. Small bilateral pleural effusions. 2. A few nodular opacities which project over the right lower lung. These are indeterminate and radiographic follow-up to ensure resolution is recommended. ACT 112: Negative or not required by law. Electronically signed by: Ras Bear M.D. 06/21/2023 4:22 PM Medications Administered Discontinued Medications Furosemide (Furosemide 40 Mg/4 Ml Vial) 40 mg IV ONE ONE Stop: 06/21/23 16:19 Last Admin: 06/21/23 16:45 Dose: 40 mg Documented By: LUISAK Supervising Physician Co-Signing Physician Notes I have seen and examined the patient and have discussed the case with the provider above. I have reviewed the advanced practitioner's documentation, and I agree with, and take responsibility for that plan of care. 72-year-old female presents after hospital follow-up in cardiology office with increased shortness of breath and a 30 pound weight gain reported. After returning home from rehab approximately 1 month ago she was feeling well until approximately 1 week ago. She reports eating things like man which sloppy [employer] and tunafish. She does have some issues with her right arm but does have some help with family who do bring her food. She drives at baseline but reports she has not driven since returning home from rehab 1 month ago. She has a history of stroke but her right arm dysfunction is not from that per her report. On exam she is bradycardic, obese, and in no acute distress. She has skin changes in her inguinal region bilaterally with erythema that extends around her right buttock area. She reports putting cornstarch in these folds for a while now and they appear very irritated. She has clear peripheral edema that is pitting up to her thighs. She is not working to breathe at rest but has difficulty moving around independently. Lungs are clear to auscultation bilaterally, S1-S2 heard on exam with no evidence of murmurs, bradycardic rate. Abdomen soft nontender nondistended. She is able to answer questions appropriately however there is a delay in response to some extent. Workup today reveals a CBC within normal limits aside from mild thrombocytopenia at 129, CHEM panel within normal limits with BUN to creatinine ratio at her baseline. Mildly elevated AST to 40 and ALT to 73 with normal baseline. Highly sensitive troponin is 16, patient denies any chest pain and EKG reveals sinus bradycardia with a right bundle branch block and T wave inversion in the anterolateral lateral leads similar T wave inversions are noted on prior EKGs. Continue treatment for acute decompensated diastolic heart failure secondary to a combination of low output state following spontaneous conversion to sinus rhythm from A-fib in addition to dietary indiscretions with sodium rich foods. Continue Lasix per cardiology plan. She is currently in sinus bradycardia on telemetry which will be monitored overnight. Metoprolol and amiodarone are being held. Cont apixaban for DVT prophylaxis. DO David (4) Hypothyroidism Hypothyroidism type: unspecified Qualified Code(s): E03.9 - Hypothyroidism, unspecified
--- NOTE | 2023-06-21 17:13 | Cardiology Consultation ---
Date of Consultation June 21, 2023 Assessment & Plan (1) Heart failure, diastolic, with acute decompensation: (2) Symptomatic bradycardia: (3) Tachy-larry syndrome: (4) Paroxysmal atrial fibrillation: (5) RBBB (right bundle branch block): (6) CVA (cerebral vascular accident): Plan Acute decompensated diastolic congestive heart failure felt to be secondary to low output state following spontaneous conversion from atrial fibrillation to marked sinus bradycardia. - IV furosemide - Supplement potassium orally Paroxysmal atrial fibrillation/flutter, symptomatic bradycardia, Tachy- Bradycardia Syndrome, chronic right bundle branch block - Hold metoprolol succinate (12.5 mg BID) for now - Hold amiodarone (200 mg BID) for now - Maintain telemetry - Possible future need for permanent pacemaker implantation noted. Marked bradycardia. History of hypothyroidism. Recent (April 2023) initiation of amiodarone. - Check TFTs. - Hold metoprolol succinate and amiodarone as above. - Possible future need for permanent pacemaker implantation noted. CHADsVasc score of 5 points. History of CVA in 2013 - Continue Eliquis anticoagulation, 5 mg twice a day. Hypertension - IV furosemide - Add losartan if additional blood pressure control is needed after diuresis. Inguinal rash - As per Hospitalist Supervising Physician Co-Signing Physician Notes Attending attestation: Case reviewed with the advanced practitioner. I have personally performed a history and physical examination on the patient. I have reviewed the advanced practitioner's documentation on the date of service referenced in note, and I agree with, and take responsibility for the plan of care. -Repeat echocardiogram ordered and will be performed on 06/22/2023 -Continue Eliquis for now, will plan on holding 2 doses (evening before and a.m. of pacemaker if pacemaker deemed indicated). -Hold AV evon including metoprolol and amiodarone. Ray Gallegos DO History of Present Illness Reason for Consultation: CHF, Bradycardia Requesting Physician: Hospitalist Service Attending Physician: MIGUEL History of Present Illness Nadja Silva is a 72 year old female who was evaluated in the outpatient cardiology office by Dr. Vladimir Carter earlier today, presenting with bilateral lower extremity peripheral edema that has progressed over the past week and increased shortness of breath. Marked sinus bradycardia noted on examination as well as EKG. Due to acute decompensated heart failure, symptomatic bradycardia, and concern for Tachy-Larry Syndrome, the patient was referred to the [facility] ER for inpatient evaluation and treatment. Patient previously admitted to [facility] in April 2023 with strokelike symptoms and weakness. MRI demonstrating MCA territory encep halomalacia. No evidence of acute CVA per MRI however patient does carry history of CVA in 2013. Cardiology consultation requested at that time due to elevated troponin, abnormal EKG, telemetry revealing atrial fibrillation/flutter. Patient treated with metoprolol succinate and amiodarone, discharged to home on April 26, 2023 on metoprolol succinate 25 mg twice per day, amiodarone 200 mg twice per day, and Eliquis anticoagulation (5 mg twice per day). Metoprolol dosing was later decreased at rehab to 12.5 mg twice a day. Past Medical and Surgical History: Paroxysmal atrial fibrillation/flutter with a rapid ventricular response. [id number] score 5 points, Eliquis anticoagulation History of CVA Hypertension Dyslipidemia Hypothyroidism status post partial thyroidectomy Ankle surgery Cataract extraction Social History: Non-smoker. No significant alcohol. No illegal drug use. Family History: Noncontributory. Mother with uterine cancer. Allergies Allergy/AdvReac Type Severity Reaction Status Date / Time No Known Allergies Allergy Verified 04/15/23 20:15 Home Medications Medication Instructions Recorded Confirmed Type acetaminophen 325 mg tablet 650 mg PO Q4H PRN PAIN/FEVER 04/15/23 06/21/23 History (Tylenol) aspirin 81 mg tablet,delayed 81 mg PO QAM 04/15/23 06/21/23 History release levothyroxine 100 mcg tablet 100 mcg PO QAM 04/15/23 06/21/23 History omega-3 fatty acids 1,000 mg 1,000 mg PO BID 04/15/23 06/21/23 History capsule amiodarone 200 mg tablet 200 mg PO BID #60 tabs 04/26/23 06/21/23 Rx apixaban 5 mg tablet (Eliquis) 5 mg PO BID #60 tabs 04/26/23 06/21/23 Rx atorvastatin 10 mg tablet 10 mg PO QAM #30 tabs 04/26/23 06/21/23 Rx magnesium oxide 400 mg (241.3 mg 400 mg PO BID #60 tabs 01/16/24 03/12/24 Rx magnesium) tablet nitroglycerin 0.4 mg sublingual 0.4 mg sublingual UD PRN chest 04/26/23 06/21/23 Rx tablet (Nitrostat) pain #14 tabs metoprolol succinate 25 mg 12.5 mg PO BID 06/21/23 06/21/23 History tablet,extended release 24 hr Patient History Medical History RBBB (right bundle branch block) Paroxysmal atrial fibrillation Abnormal EKG Elevated troponin I level Stroke-like symptom Weakness CVA (cerebral vascular accident) Social History Smoking Status: Never smoker Hx Alcohol Use: No Hx Substance Use: No Preferred Language: Latvian Communication Ability: Effective Aviation Electrical Technician Required: No Beliefs That Will Affect Care: None Current Living Situation: Alone Feels Safe at Home: Yes Assistive Devices: None Review of Systems Review of Systems: + Rash in the groin folds bilaterally, a pplying corn starch without improvement. Physical Exam Physical Exam: General: Alert to person and place. NAD. HENT: Normocephalic. Atraumatic. Eyes: ? Exophthalmos. PER. Conjunctiva pink, sclera clear. Neck: JVD. Heart: Regular at 48 bpm. Lungs: Absent breath sounds at the bases. Faint bibasilar rales. Abdomen: Obese. + Rash in the inguinal folds bilaterally. +BS. Soft. Nontender. No organomegaly. Extremities: 2+ pitting edema. Cool and dry extremities. + small wound on the medial aspect of the 3rd digit on the right. No clubbing. No cyanosis Limited neurological examination is without focal deficits. Pulses: radial=2/4, posterior tibial=1/4 Results & Data Vital Signs (Past 12 Hours) Vital Signs Temp Pulse Pulse Resp BP BP Pulse Ox 06/21/23 16:30 46 L 18 164/79 H 96 06/21/23 14:25 36.8 C 84 18 190/72 H 96 O2 Del Method 06/21/23 16:30 Room Air 06/21/23 14:25 Room Air Laboratory Results Cardiac Enzymes 06/21/23 Range/Units 15:05 AST 40 H (13-39) U/L Troponin I High Sens 16.0 H (0-14) pg/ml Coagulation 06/21/23 Range/Units 15:05 PT 12.7 H (9.0-12.0) Seconds APTT 39 H (21-31) Seconds CBC 06/21/23 Range/Units 15:05 WBC 6.24 (4.8-10.8) K/ul RBC 4.18 L (4.20-5.40) M/uL Hgb 12.3 (12.0-16.0) g/dl Hct 38.5 (37.0-47.0) % Plt Count 129 L (130-400) K/uL Neut # (Auto) 4.79 (1.40-6.50) K/uL Lymph # (Auto) 0.83 L (1.20-3.40) K/uL [place] # (Auto) 0.51 (0.11-0.59) K/uL Eos # (Auto) 0.06 (0.00-0.50) K/uL Baso # (Auto) 0.03 (0.00-0.20) K/uL Comprehensive Metabolic Panel 06/21/23 Range/Units 15:05 Sodium 139 (136-145) mmol/L Potassium 4.5 (3.5-5.1) mmol/L Chloride 104 (98-107) mmol/L Carbon Dioxide 30 (21-32) mmol/L BUN 26 H (6-23) mg/dl Creatinine 0.75 (0.6-1.2) mg/dl Glucose 82 (70-99(Fasting)) mg/dl Calcium 9.2 (8.6-10.3) mg/dl AST 40 H (13-39) U/L ALT 73 H (7-52) U/L Alkaline Phosphatase 115 H (34-104) U/L Total Protein 6.7 (6.0-8.3) gm/dl Albumin 4.0 (3.4-5.0) gm/dl Diagnostic Findings April 16, 2023 TTE Interpretation Summary ([facility], Dr. Mcmahon): Moderate concentric LVH. Normal LV wall motion. EF 65 to 70%. Mildly dilated left atrium. Moderate mitral annular calcification. Mild tricuspid regurgitation. Mildly dilated RV with normal RV systolic function. Grade 2 diastolic dysfunction. No interatrial shunt detected with administration of agitated saline contrast. EKG on June 21, 2023 at 13:37:52 revealed marked sinus bradycardia at 42 bpm with a right bundle branch block, diffuse T wave abnormality, and a prolonged QTc of 542 ms. EKG in the ER June 21, 2023 time to 14:59:08 revealed marked sinus bradycardia at 42 bpm with a first-degree AV block, chronic right bundle branch block, diffuse STT wave abnormality. QTc 517 ms. Hospital Telemetry: Sinus bradycardia in the 40's.
[2023-06-21 17:55] LABS: Thyroid Stimulating Hormone 5.424 uIu/ml (0.300-4.500)
[2023-06-21 18:26] LABS: T4 Free Thyroxine 1.73 ng/dl (0.61-1.60)
[2023-06-22] MEDS: MAGNESIUM OXIDE 400 MG TAB PO SCH (00:39)
[2023-06-22] MEDS: APIXABAN 5 MG TABLET PO SCH (00:39)
[2023-06-22] MEDS: NYSTATIN OINT 15 GM TUBE EXT SCH (00:39)
[2023-06-22] MEDS: LEVOTHYROXINE SODIUM 100 MCG TABLET PO SCH (05:34)
[2023-06-22] MEDS: FUROSEMIDE 40 MG/4 ML VIAL IV ONE ×2 (05:40→14:08)
[2023-06-22 06:06] LABS: Appearance Urine Clear (Clear); Bilirubin Urine Negative (Negative); Blood Urine Negative (Negative); Color Urine Yellow; Glucose Urine UA Negative (Negative); Ketones Urine Negative (Negative); Leukocyte Esterase Urine Negative (Negative); Nitrite Urine Negative (Negative); Protein Urine Negative (Negative); Specific Gravity Urine 1.008 (1.000-1.030); Urobilinogen Urine Negative (Negative)
--- OUTSIDE RECORDS SUMMARY | 2023-06-22 06:26 | External Medical Summary | Summary of Care ---
Author Name Unknown Organization [facility] Address [address] [facility] [place] [address] Phone [phone] Care Team Providers Care Dialysis Tech Name Role Phone AminaBob Primary Care Provider Reason for Visit * Reason Comments Outpatient Testing Encounter Details Date Type Department Care Team (Late st Contact Info) Description 05/19/2023 10:10 AM EST Laboratory Laboratory [address] [place] [id number] [address] [place] [id number] Preop examination Social History Tobacco Use Types Packs/Day Years Used Date Smoking Tobacco: Never Assessed Sex and Gender Information Value Date Recorded Sex Assigned at Not on file Gender Identity Not on file Sexual Orientation Not on file Job Start Date Occupation Industry Not on file Not on file Not on file documented as of this encounter Plan of Treatment Health Maintenance Due Date Last Done Comments COVID-19 Vaccine (#1) 04/07/1951 Depression Screening 1962 Hepatitis C Screening 1968 DTaP,Tdap,and Td Vaccines (1 - Tdap) 1969 Mammogram 1990 Cologuard 10/07/1995 Colonoscopy 10/07/1995 Colorectal Cancer Screening 10/07/1995 Fecal Occult Blood Test 10/07/1995 Sigmoidoscopy 10/07/1995 Zoster Vaccines (1 of 2) 2000 DXA Scan 10/07/2015 Pneumococcal Vaccine: 65+ Years (1 - PCV) 10/07/2015 Influenza Vaccine (FLU shot) (#1) 2022 Lipid Panel 01/31/2023 01/31/2018, 08/10, 01/11/2017, Additional history exists GARDASIL-HPV IMMUNIZATION SERIES Aged Out No longer eligible based on patient's age to complete this topic Hepatitis B Aged Out No longer eligi ble based on patient's age to complete this topic MENINGOCOCCAL (MENACTRA/MENVEO) Aged Out No longer eligible based on patient's age to complete this topic documented as of this encounter Medical Devices Not on filedocumented as of this encounter Visit Diagnoses Diagnosis Preop examination Preoperative examination, unspecified documented in this encounter Care Teams Dialysis Tech Relationship Specialty Start Date End Date Bob Huynh DO [address] [place] [address] [place] [address] PCP - General Family Medicine 09/18/13 documented as of this encounter
--- OUTSIDE RECORDS SUMMARY | 2023-06-22 06:26 | External Medical Summary ---
Author Name Unknown Address Unknown Organization [id number]:[facility] [place] - [facility] [address] [facility] [address] Laboratory Report Ordering Provider Test Date Status ROSIO ATKINS III 05/19/2023 10:43:48 Final Observation Date Value Abnormality Reference (Units ) Status WBC, Total 05/19/2023 10:43:48 5.98 4.00-10.80 (K/uL) Final RBC 05/19/2023 10:43:48 3.80 3.85-5.15 (M/uL) Final Hemoglobin 05/19/2023 10:43:48 11.6 Below low normal 12.0-15.3 (g/dL) Final HCT 05/19/2023 10:43:48 37.1 36.0-45.2 (%) Final MCV 05/19/2023 10:43:48 97.6 81.5-97.5 (fL) Final MCH 05/19/2023 10:43:48 30.5 27.0-34.0 (pg) Final MCHC 05/19/2023 10:43:48 31.3 32.0-36.0 (g/dL) Final RDW 05/19/2023 10:43:48 14.7 11.5-15.5 (%) Final Platelets 05/19/2023 10:43:48 175 140-400 (K/uL) Final MPV 05/19/2023 10:43:48 10.2 6.6-11.1 (fL) Final Nucleated erythrocytes/100 leukocytes [Ratio] in Blood by Automated count 05/19/2023 10:43:48 0 <=0 (/100 WBCs) Final Performing Location [facility] [place] - [address] [facility] [address]
--- OUTSIDE RECORDS SUMMARY | 2023-06-22 06:26 | External Medical Summary ---
Author Name Unknown Address Unknown Organization [id number]:[facility] [place] - [address] [facility] [place] [id number] Laboratory Report Ordering Provider Test Date Status ROSIO ATKINS III 05/19/2023 10:43:48 Final Observation Date Value Abnormality Reference (Units ) Status BUN 05/19/2023 10:43:48 28 Above high normal 6-20 (mg/dL) Final Creatinine 05/19/2023 10:43:48 0.8 0.5-1.0 (mg/dL) Final Glomerular filtration rate/1.73 sq M.predicted [Volume Rate/Area] in Serum, Plasma or Blood by Creatinine-based formula (CKD-EPI) 05/19/2023 10:43:48 76 >=60 (mL/min) Final eGFR is calculated based on the CKD-EPI 2020 equation SODIUM 05/19/2023 10:43:48 139 135-146 (m mol/L) Final Potassium 05/19/2023 10:43:48 4.5 3.5-5.1 (m mol/L) Final Cl 05/19/2023 10:43:48 103 98-107 (mm ol/L) Final CO2 05/19/2023 10:43:48 25 22-32 (mmo l/L) Final Anion gap 05/19/2023 10:43:48 11 7-15 (mmol /L) Final Glucose 05/19/2023 10:43:48 91 70-120 (mg /dL) Final Albumin 05/19/2023 10:43:48 4.0 3.8-5.0 (g /dL) Final AST (Aspartate aminotransferase) 05/19/2023 10:43:48 20 10-35 (U/L) Fin al Alk Phos 05/19/2023 10:43:48 98 35-130 (U/ L) Final Bilirubin, Total 05/19/2023 10:43:48 0.4 <=1 .2 (mg/dL) Final Calcium 05/19/2023 10:43:48 9.0 8.4-10.2 ( mg/dL) Final Protein 05/19/2023 10:43:48 6.5 6.0-8.3 (g /dL) Final ALT (Alanine aminotransferase) 05/19/2023 10:43:48 70 Above high normal 10-35 (U/L) Final Performing Location [facility] [place] - [address] [facility] [address]
--- OUTSIDE RECORDS SUMMARY | 2023-06-22 06:26 | External Medical Summary | Summary of Care ---
Author Name Unknown Organization [facility] Address [address] [facility] [place] [address] Phone [phone] Care Team Providers Care Slag Dumper Name Role Phone AminaBob Primary Care Provider Reason for Visit * Reason Comments Outpatient Testing Encounter Details Date Type Department Care Team (Late st Contact Info) Description 05/19/2023 10:10 AM EST Laboratory Laboratory [address] [place] [phone] [address] [place] [address] Preop examination Social History Tobacco Use Types Packs/Day Years Used Date Smoking Tobacco: Never Assessed Sex and Gender Information Value Date Recorded Sex Assigned at Not on file Gender Identity Not on file Sexual Orientation Not on file Job Start Date Occupation Industry Not on file Not on file Not on file documented as of this encounter Plan of Treatment Pending Results Name Type Priority Associated Diagnoses Date /Time URINALYSIS, REFLEX TO MICROSCOPIC Lab Routine Preop examination 05/19/2023 10:15 AM EST CULTURE, URINE, QUANTITATIVE Lab Routine Preop examination 05/19/2023 10:15 AM EST Health Maintenance Due Date Last Done Comments [...] unspecified documented in this encounter Care Teams Slag Dumper Relationship Specialty Start Date End Date Bob Huynh DO [address] [place] [address] PCP - General Family Medicine 09/18/13 documented as of this encounter
--- OUTSIDE RECORDS SUMMARY | 2023-06-22 06:26 | External Medical Summary | Summary of Care ---
Author Name Unknown Organization [facility] Address [address] [facility] [address] Phone [phone] Care Team Providers Care Instructional Developer Name Role Phone Bob Huynh DO Primary Care Provider Reason for Visit * Reason Comments Outpatient Testing Encounter Details Date Type Department Care Team (Latest Contact Info) Description 05/19/2023 10:10 AM EST Laboratory Laboratory [address] [place] [phone] [address] [place] [address] Preop examination; Hemiparesis affecting left side as late effect of cerebrovascular accident (HCC); Left hemiparesis (HCC); Arterial ischemic stroke, MCA (middle cerebral artery), right, acute (HCC); Atrial fibrillation (HCC) Social History Tobacco Use Types Packs/Day Years [...] Name Type Priority Associated Diagnoses Date /Time COMPREHENSIVE METABOLIC PANEL Lab Routine Hemiparesis affecting left side as late effect of cerebrovascular accident (HCC) Left hemiparesis (HCC) Arterial ischemic stroke, MCA (middle cerebral artery), right, acute (HCC) Atrial fibrillation (HCC) 05/19/2023 10:43 AM EST CBC Lab Routine Hemiparesis affecting left side as late effect of cerebrovascular accident (HCC) Left hemiparesis (HCC) Arterial ischemic stroke, MCA (middle cerebral artery), right, acute (HCC) Atrial fibrillation (HCC) 05/19/2023 10:43 AM EST CULTURE, URINE, QUANTITATIVE Lab Routine Hemiparesis affecting left side as late effect of cerebrovascular accident (HCC) Left hemiparesis (HCC) Arterial ischemic stroke, MCA (middle cerebral artery), right, acute (HCC) Atrial fibrillation (HCC) 05/19/2023 10:43 AM EST URINALYSIS, REFLEX TO MICROSCOPIC Lab Routine Hemiparesis affecting left side as late effect of cerebrovascular accident (HCC) Left hemiparesis (HCC) Arterial ischemic stroke, MCA (middle cerebral artery), right, acute (HCC) Atrial fibrillation (HCC) 05/19/2023 10:43 AM EST Health Maintenance Due Date Last [...] Diagnoses Diagnosis Preop examination Preoperative examination, unspecified Hemiparesis affecting left side as late effect of cerebrovascular accident (HCC) Hemiplegia affecting unspecified side, late effect of cerebrovascular disease Left hemiparesis (HCC) Hemiplegia, unspecified, affecting unspecified side Arterial ischemic stroke, MCA (middle cerebral artery), right, acute (HCC) Unspecified cerebral artery occlusion with cerebral infarction Atrial fibrillation (HCC) Atrial fibrillation documented in this encounter Care Teams Instructional Developer Relationship Specialty Start Date End Date Bob Huynh DO [address] [place] [address] PCP - General Family Medicine 09/18/13 documented as of this encounter
--- OUTSIDE RECORDS SUMMARY | 2023-06-22 06:26 | External Medical Summary ---
Author Name Unknown Address Unknown Organization [id number]:[facility] - [address] [facility] [address] Laboratory Report Ordering Provider Test Date Status ROSIO ATKINS III 05/19/2023 10:43:48 Final Observation Date Value Abnormality Reference (Units ) Status Color of Urine by Auto 05/19/2023 10:43:48 Light Yellow Colorless, Light Yellow, Yellow, Dark Yellow Final Clarity, Urine 05/19/2023 10:43:48 Clear Clear Final Glucose [Mass/volume] in Urine by Automated test strip 05/19/2023 10:43:48 Negative Negative (mg/dL) Final Bilirubin.total [Presence] in Urine by Automated test strip 05/19/2023 10:43:48 Negative Negative Final Ketones [Mass/volume] in Urine by Automated test strip 05/19/2023 10:43:48 Negative Negative (mg/dL) Final Specific gravity, Urine 05/19/2023 10:43:48 1.015 1.003-1.030 Final Hemoglobin [Presence] in Urine by Automated test strip 05/19/2023 10:43:48 Moderate Abnormal Negative Final pH, Urine 05/19/2023 10:43:48 6.0 5.0-7.5 (Units) Final Protein [Mass/volume] in Urine by Automated test strip 05/19/2023 10:43:48 Negative Negative (mg/dL) Final Urobilinogen [Mass/volume] in Urine by Automated test strip 05/19/2023 10:43:48 Normal Normal (mg/dL) Final Nitrite [Presence] in Urine by Automated test strip 05/19/2023 10:43:48 Negative Negative Final Leukocyte esterase [Presence] in Urine by Automated test strip 05/19/2023 10:43:48 Negative Negative Final RBC, Urine 05/19/2023 10:43:48 0-2 0-2 (/HPF) Final WBC, Urine 05/19/2023 10:43:48 0-2 0-2 (/HPF) Final Bacteria [#/area] in Urine sediment by Microscopy high power field 05/19/2023 10:43:48 0-25 0-25 (/HPF) Final Performing Location [facility] - [facility] [address] [facility] [address]
--- OUTSIDE RECORDS SUMMARY | 2023-06-22 06:26 | External Medical Summary | Summary of Care ---
Author Name Unknown Organization [facility] Address [address] [facility] [place] [address] Phone [phone] Care Team Providers Care Instrumentation Designer Name Role Phone AminaBob Primary Care Provider Reason for Visit * Reason Comments Outpatient Testing Encounter Details Date Type Department Care Team (Late st Contact Info) Description 05/19/2023 10:10 AM EST Laboratory Laboratory [address] [place] [phone] [place] [address] Preop examination Social History Tobacco Use Types [...] Name Type Priority Associated Diagnoses Date /Time CULTURE, URINE, QUANTITATIVE Lab Routine Preop examination [...] unspecified documented in this encounter Care Teams Instrumentation Designer Relationship Specialty Start Date End Date Bob Huynh DO [address] [place] [address] PCP - General Family Medicine 09/18/13 documented as of this encounter
--- OUTSIDE RECORDS SUMMARY | 2023-06-22 06:26 | External Medical Summary | Summary of Care ---
Author Name Unknown Organization [facility] Address [address] [facility] [address] Phone [phone] Care Team Providers Care Medical Information Specialist Name Role Phone Bob Huynh DO Primary Care Provider Reason for Visit * Reason Comments Outpatient Testing Encounter Details Date Type Department Care Team (Latest Contact Info) Description 05/19/2023 10:10 AM EST Laboratory Laboratory [address] [place] [phone] [address] [place] [address] Preop examination; Hemiparesis affecting left side as [...] fibrillation documented in this encounter Care Teams Medical Information Specialist Relationship Specialty Start Date End Date Bob Huynh DO [address] [place] [address] PCP - General Family Medicine 09/18/13 documented as of this encounter
--- OUTSIDE RECORDS SUMMARY | 2023-06-22 06:26 | External Medical Summary | Summary of Care ---
Author Name Unknown Organization [facility] Address [address] [facility] [address] Phone [phone] Care Team Providers Care Senior Support Engineer Name Role Phone AminaBob Primary Care Provider Reason for Visit * Reason Comments Outpatient Testing Encounter Details Date Type Department Care Team (Late st Contact Info) Description 05/19/2023 10:10 AM EST Laboratory Laboratory [address] [place] [phone] [address] [place] [address] Preop examination Social History Tobacco Use Types [...] Date /Time COMPREHENSIVE METABOLIC PANEL Lab Routine Preop examination 05/19/2023 10:15 AM EST CBC Lab Routine Preop examination 05/19/2023 10:15 AM EST URINALYSIS, REFLEX TO MICROSCOPIC Lab Routine Preop [...] unspecified documented in this encounter Care Teams Senior Support Engineer Relationship Specialty Start Date End Date Bob Huynh DO [address] [place] [address] PCP - General Family Medicine 09/18/13 documented as of this encounter
--- OUTSIDE RECORDS SUMMARY | 2023-06-22 06:26 | External Medical Summary | Summary of Care ---
Author Name Unknown Organization [facility] Address [address] [facility] [place] [address] Phone [phone] Care Team Providers Care Professor Of Voice Name Role Phone AminaBob Primary Care Provider Reason for Visit * Reason Comments Outpatient Testing Encounter Details Date Type Department Care Team (Late st Contact Info) Description 05/19/2023 10:10 AM EST Laboratory Laboratory [address] [place] [phone] [address] [place] [address] Preop examination Social History Tobacco Use Types [...] unspecified documented in this encounter Care Teams Professor Of Voice Relationship Specialty Start Date End Date Bob Huynh DO [address] [place] [address] PCP - General Family Medicine 09/18/13 documented as of this encounter
--- OUTSIDE RECORDS SUMMARY | 2023-06-22 06:26 | External Medical Summary ---
Author Name Unknown Address Unknown Organization [id number]:[facility] - [address] [place] [address] Laboratory Report Ordering Provider Test Date Status MILLYROSIO III 05/19/2023 10:43:48 Final Observation Date Value Abnormality Reference (Units) Status Bacteria identified in Specimen by Culture 05/19/2023 10:43:48 No significant growth Final Test: Culture, Urine, Quanti tative
Specimen Source: Urine, Clean Catch
Specimen Type: Urine
Specimen Date: 05/19/2023 10:43 AM
Result Date: 05/20/2023 3:56 PM
Result Status: Final result
Resulting Lab: [facility]
[address]
[place] [address]

CULTURE

No significant growth

null Performing Location [facility] - [address] [facility] [address]
--- OUTSIDE RECORDS SUMMARY | 2023-06-22 06:26 | External Medical Summary | Summary of Care ---
Author Name Unknown Organization [facility] Address [address] [facility] [address] Phone [phone] Care Team Providers Care Staff Design Engineer Name Role Phone AminaBob Primary Care Provider Reason for Visit * Reason Comments Outpatient Testing Encounter Details Date Type Department Care Team (Late st Contact Info) Description 05/19/2023 10:10 AM EST Laboratory Laboratory [address] [place] [phone] [address] [place] [address] Preop examination Social History Tobacco Use Types [...] unspecified documented in this encounter Care Teams Staff Design Engineer Relationship Specialty Start Date End Date Bob Huynh DO [address] [place] [address] PCP - General Family Medicine 09/18/13 documented as of this encounter
--- OUTSIDE RECORDS SUMMARY | 2023-06-22 06:26 | External Medical Summary | Summary of Care ---
Author Name Unknown Organization [facility] Address [address] [facility] [address] Phone [phone] Care Team Providers Care Bank Cashier Name Role Phone AminaBob Primary Care Provider Reason for Visit * Reason Comments Outpatient Testing Encounter Details Date Type Department Care Team (Late st Contact Info) Description 05/19/2023 10:10 AM EST Laboratory Laboratory [address] [place] [phone] [address] [place] [address] Preop examination Social History Tobacco Use Types [...] unspecified documented in this encounter Care Teams Bank Cashier Relationship Specialty Start Date End Date Bob Huynh DO [address] [place] [address] PCP - General Family Medicine 09/18/13 documented as of this encounter
[2023-06-22 08:33] LABS: Basophils # (auto) 0.02 K/uL (0.00-0.20); Basophils % (auto) 0.5 %; Eosinophils # (auto) 0.11 K/uL (0.00-0.50); Eosinophils % (auto) 2.5 %; Hematocrit (blood only) 33.9 % (37.0-47.0); Hemoglobin 11.4 g/dl (12.0-16.0); Immature Granulocytes # (auto) 0.01 K/uL (0.01-0.20); Immature Granulocytes % (auto) 0.2 %; Lymphocytes # (auto) 0.71 K/uL (1.20-3.40); Lymphocytes % (auto) 16.1 %; Mean Corpuscular Hemoglobin 30.2 pg (25.0-34.0); Mean Corpuscular Hgb Conc 33.6 g/dL (32.0-36.0); Mean Corpuscular Volume 89.7 fL (80.0-100.0); Mean Platelet Volume 10.1 fL (9.4-12.4); Monocytes # (auto) 0.44 K/uL (0.11-0.59); Neutrophils # (auto) 3.13 K/uL (1.40-6.50); Neutrophils % (auto) 70.7 %; Platelet Count 116 K/uL (130-400); RDW Coefficient of Variation 15.1 % (11.5-14.5); Red Blood Count 3.78 M/uL (4.20-5.40); White Blood Count 4.42 K/ul (4.8-10.8)
[2023-06-22 08:53] LABS: Albumin Level 3.4 gm/dl (3.4-5.0); BUN Creatinine Ratio 29.5 (10-20); Bilirubin Direct 0.2 mg/dl (0-0.2); Bilirubin,Total 0.5 mg/dl (0.2-1.0); Calcium 8.7 mg/dl (8.6-10.3); Creatinine Clr Calc Pharmacy 61.4 ml/min; Est GFR (African American) 69.4 ml/min; Est GFR (Non-African American) 59.8 ml/min; Magnesium 1.7 mg/dl (1.7-2.4); Potassium 4.6 mmol/L (3.5-5.1); Total Protein 5.7 gm/dl (6.0-8.3)
[2023-06-22] MEDS: ATORVASTATIN 10 MG TAB PO SCH (09:03)
--- NOTE | 2023-06-22 10:03 | Cardiology Progress Note ---
Date of Service June 22, 2023 Assessment & Plan (1) Heart failure, diastolic, with acute decompensation: (2) Symptomatic bradycardia: (3) Tachy-dallas syndrome: (4) Paroxysmal atrial fibrillation: (5) RBBB (right bundle branch block): (6) CVA (cerebral vascular accident): Plan Acute decompensated diastolic congestive heart failure felt to be secondary to low output state following spontaneous conversion from atrial fibrillation to marked sinus bradycardia. - Continue IV furosemide at 40 mg twice per day - Follow electrolytes, supplement as needed. Marked bradycardia. - Continue to hold RACKING TECHNICIAN metoprolol succinate - Continue to hold RACKING TECHNICIAN amiodarone - Maintain telemetry Paroxysmal atrial fibrillation/flutter, Tachy-Bradycardia Syndrome, chronic right bundle branch block - Resume metoprolol and lower dose amiodarone post pacemaker implantation. CHADsVasc score of 5 points. History of CVA in 2013 - Resume Eliquis anticoagulation post device implantation when determined to be safe. Admission and Anticipated Discharge Date Admission Date: June 21, 2023 Supervising Physician Co-Signing Physician Notes Attending attestation: Case reviewed with the advanced practitioner. I have personally performed a history and physical examination on the patient. I have reviewed the advanced practitioner's documentation on the date of service referenced in note, and I agree with, and take responsibility for the plan of care. Continue to hold metoprolol and amiodarone. Furosemide 40 mg x 1 today. Anticipate need for pacemaker am on 06/24/23. Hold Eliquis PM of 06/22 and am of 06/23. Ray Gallegos, Subjective Patient seen and examined. Chart, medications, telemetry reviewed. Telemetry: Marked sinus bradycardia with heart rates in the 40s. Low heart rate 38 bpm. High heart rate 52 bpm. No recurrent atrial fibrillation/flutter thus far Ongoing fluid issues. No chest pain. Breathing seems okay. No palpitations. No dizziness or near syncope. Review of Systems Review of Systems: Complete review of systems is otherwise as stated above, negative, or noncontributory Physical Exam Physical Exam: General: Alert and oriented x 3. No acute distress. Pleasant. Comfortable. Cooperative. HENT: Normocephalic. Atraumatic. Eyes: PER. Conjunctiva pink, sclera clear. Neck: JVD. Heart: Regular at 46 bpm. Lungs: Absent breath sounds at the bases. Faint bibasilar rales. Abdomen: Obese. + Rash in the inguinal folds bilaterally. +BS. Soft. Nontender. No organomegaly. Extremities: 2+ pitting edema. No clubbing. No cyanosis Limited neurological examination is without focal deficits. Pulses: radial=2/4, posterior tibial=1/4 Results & Data Vital Signs (Past 12 Hours) Vital Signs Temp Pulse Pulse Resp BP Pulse Ox O2 Del Method 06/22/23 08:00 40 L 06/22/23 07:52 36.6 C 43 L 18 92/52 L 93 Room Air 06/22/23 05:43 36.5 C 06/22/23 02:38 35.6 C L 41 L 18 103/61 94 Room Air 06/21/23 23:48 34.7 C L 06/21/23 22:50 Room Air 06/21/23 22:45 34.7 C L 40 L 18 165/75 H 99 Room Air 06/21/23 22:11 37 L 20 96/45 L 99 Room Air Laboratory Results Cardiac Enzymes 06/21/23 06/22/23 Range/Units 15:05 08:17 AST 40 H 34 (13-39) U/L Troponin I High Sens 16.0 H (0-14) pg/ml Coagulation 06/21/23 Range/Units 15:05 PT 12.7 H (9.0-12.0) Seconds APTT 39 H (21-31) Seconds CBC 06/21/23 06/22/23 Range/Units 15:05 08:17 WBC 6.24 4.42 L (4.8-10.8) K/ul RBC 4.18 L 3.78 L (4.20-5.40) M/uL Hgb 12.3 11.4 L (12.0-16.0) g/dl Hct 38.5 33.9 L (37.0-47.0) % Plt Count 129 L 116 L (130-400) K/uL Neut # (Auto) 4.79 3.13 (1.40-6.50) K/uL Lymph # (Auto) 0.83 L 0.71 L (1.20-3.40) K/uL [place] # (Auto) 0.51 0.44 (0.11-0.59) K/uL Eos # (Auto) 0.06 0.11 (0.00-0.50) K/uL Baso # (Auto) 0.03 0.02 (0.00-0.20) K/uL Comprehensive Metabolic Panel 06/21/23 06/22/23 Range/Units 15:05 08:17 Sodium 139 141 (136-145) mmol/L Potassium 4.5 4.6 (3.5-5.1) mmol/L Chloride 104 104 (98-107) mmol/L Carbon Dioxide 30 32 (21-32) mmol/L BUN 26 H 28 H (6-23) mg/dl Creatinine 0.75 0.95 (0.6-1.2) mg/dl Glucose 82 118 H (70-99(Fasting)) mg/dl Calcium 9.2 8.7 (8.6-10.3) mg/dl Direct Bilirubin 0.2 (0-0.2) mg/dl AST 40 H 34 (13-39) U/L ALT 73 H 60 H (7-52) U/L Alkaline Phosphatase 115 H 100 (34-104) U/L Total Protein 6.7 5.7 L (6.0-8.3) gm/dl Albumin 4.0 3.4 (3.4-5.0) gm/dl Intake and Output 06/21/23 06/22/23 06/22/23 22:59 06:59 14:59 Intake Total 120 / 120 Output Total 800 / 1000 200 / 1000 Balance -800 / -880 -80 / -880 Intake: Oral 120 / 120 Output: Urine Amount (Catheter) 800 / 1000 200 / 1000 External 800 / 1000 200 / 1000 Other: Weight 92.6 kg 92.6 kg Weight Measurement Method Built in [facility]
--- NOTE | 2023-06-22 10:52 | Hospitalist Progress Note ---
Date of Service June 22, 2023 Assessment & Plan (1) Heart failure, diastolic, with acute decompensation: Plan: 72 y/o female with new PAF, on AC, HTN, dyslipidemia, hypothyroidism, and prior CVA who was referred to the ED today from outpatient cardiology for acute heart failure. She notes progressive LE edema over the last ten days. Rhythm has converted from atrial fibrillation with RVR to sinus bradycardia. Tachybrady syndrome Continue IV Lasix. Monitor electrolytes Monitor fluid intake and output. Echocardiogram noted moderate concentric LVH, no regional wall motion abnormality, EF of 65 to 70%, mildly dilated RV with normal RV systolic function, mildly dilated LA, mild valvular aortic stenosis, moderate tricuspid regurgitation, grade 2 diastolic dysfunction. Discussed with cardiology team. Will keep n.p.o. past midnight with plan for possible pacemaker placement. Hold Eliquis in view of possible procedure. Continue to hold home metoprolol and amiodarone for now. (2) Paroxysmal atrial fibrillation: (3) Tachy-dallas syndrome: (4) Symptomatic bradycardia: Plan: As above (5) Hypothyroidism: Plan: TSH mildly elevated at 5.42 Had been normal Continue levothyroxine at outpatient dose for now Will need repeat TFT outpatient (6) Dyslipidemia: Plan: Chronic, stable Continue statin (7) Essential hypertension: Plan: BP running low with intermittent highs' Monitor. BB on hold as above. Monitor (8) Dermatitis: Plan: Continue Nystatin cream BID Plan Code Status: Full code DVT Prophylaxis: on apixaban I spent a total of 50 minutes coordinating, documenting and providing care for this patient excluding time spent in performance of separately billed services Admission and Anticipated Discharge Date Admission Date: June 21, 2023 Subjective Patient seen and examined Denies any chest pain, cough. Denies any shortness of breath today. Still has leg edema. Denies dysuria, frequency or urgency Denies fevers or chills Denies nausea, vomiting, abdominal pain Reports chronic limitation in passive range of movement of right shoulder. Denied pain. Reports uses a walker at home. Physical Exam Constitutional: + well hydrated; no acute distress Eyes: PERRL, conjunctivae normal, anicteric sclerae ENMT: external ear and nose normal, oropharynx normal Respiratory: normal respiratory effort; no respiratory distress Diminished breath sounds lung bases. On room air Cardiovascular: Rate/Rhythm: + bradycardic Regular rhythm, S1-S2 Gastrointestinal (Abdomen): normal bowel sounds, soft, nontender, no hepatosplenomegaly Musculoskeletal: Bilateral pitting pedal edema [significant] Neurologic: PERRL, EOMI, accommodation nl, no face palsy, no dysarthria Psychiatric: A+Ox3, euthymic affect Results & Data Results & Data Vital Signs (Past 12 Hours) Vital Signs Temp Pulse Pulse Resp BP Pulse Ox O2 Del Method 06/22/23 08:00 40 L 06/22/23 07:52 36.6 C 43 L 18 92/52 L 93 Room Air 06/22/23 05:43 36.5 C 06/22/23 02:38 35.6 C L 41 L 18 103/61 94 Room Air 06/21/23 23:48 34.7 C L 06/21/23 22:50 Room Air Laboratory Results Abnormal lab results 06/21/23 06/22/23 06/22/23 Range/Units 15:05 05:56 08:17 WBC 4.42 L (4.8-10.8) K/ul RBC 4.18 L 3.78 L (4.20-5.40) M/uL Hgb 11.4 L (12.0-16.0) g/dl Hct 33.9 L (37.0-47.0) % MCHC 31.9 L (32.0-36.0) g/dL RDW Std Deviation 51.2 H 49.0 H (36.4-46.3) fL RDW Coeff of [place]ul[place] 15.0 H 15.1 H (11.5-14.5) % Plt Count 129 L 116 L (130-400) K/uL Lymph # (Auto) 0.83 L 0.71 L (1.20-3.40) K/uL PT 12.7 H (9.0-12.0) Seconds INR 1.2 H (0.9-1.1) APTT 39 H (21-31) Seconds BUN 26 H 28 H (6-23) mg/dl BUN/Creatinine Ratio 34.7 H 29.5 H (10-20) Glucose 118 H (70-99(Fasting)) mg/dl AST 40 H (13-39) U/L ALT 73 H 60 H (7-52) U/L Alkaline Phosphatase 115 H (34-104) U/L Troponin I High Sens 16.0 H (0-14) pg/ml Total Protein 5.7 L (6.0-8.3) gm/dl TSH 5.424 H (0.300-4.500) uIu/ml Free T4 1.73 H (0.61-1.60) ng/dl Urine pH 8.0 H (4.5-7.5) (5) Hypothyroidism Hypothyroidism type: unspecified Qualified Code(s): E03.9 - Hypothyroidism, unspecified
[2023-06-22] MEDS: MICONAZOLE NITRATE POWDER 85 GM EXT SCH (20:56)
[2023-06-23 07:42] LABS: Hematocrit (blood only) 34.2 % (37.0-47.0); Hemoglobin 11.4 g/dl (12.0-16.0); Mean Corpuscular Hemoglobin 29.8 pg (25.0-34.0); Mean Corpuscular Hgb Conc 33.3 g/dL (32.0-36.0); Mean Corpuscular Volume 89.5 fL (80.0-100.0); Mean Platelet Volume 9.9 fL (9.4-12.4); Platelet Count 126 K/uL (130-400); RDW Coefficient of Variation 15.1 % (11.5-14.5); RDW Standard Deviation 49.2 fL (36.4-46.3); Red Blood Count 3.82 M/uL (4.20-5.40); White Blood Count 4.48 K/ul (4.8-10.8)
[2023-06-23 07:53] LABS: BUN Creatinine Ratio 26.5 (10-20); Calcium 8.4 mg/dl (8.6-10.3); Creatinine Clr Calc Pharmacy 51.1 ml/min; Est GFR (African American) 56.2 ml/min; Est GFR (Non-African American) 48.5 ml/min; Magnesium 1.7 mg/dl (1.7-2.4); Phosphorus 4.5 mg/dl (2.5-4.9); Potassium 4.1 mmol/L (3.5-5.1)
--- NOTE | 2023-06-23 10:19 | Cardiology Progress Note ---
Date of Service June 23, 2023 Assessment & Plan (1) Heart failure, diastolic, with acute decompensation: (2) Symptomatic bradycardia: (3) Tachy-dallas syndrome: (4) Paroxysmal atrial fibrillation: (5) RBBB (right bundle branch block): (6) CVA (cerebral vascular accident): Plan Acute decompensated diastolic congestive heart failure felt to be secondary to low output state following spontaneous conversion from atrial fibrillation to marked sinus bradycardia. - IV furosemide 40 mg twice per day - Supplement Potassium orally today. Marked bradycardia. - Continue to hold GEOGRAPHIC INFORMATION SYSTEMS ANALYST metoprolol succinate - Continue to hold GEOGRAPHIC INFORMATION SYSTEMS ANALYST amiodarone - NPO for possible pacemaker implantation Paroxysmal atrial fibrillation/flutter, Tachy-Bradycardia Syndrome, chronic right bundle branch block - Resume metoprolol and lower dose amiodarone post pacemaker implantation. [id number] Score 5 points. CVA in 2013. - Resume Eliquis anticoagulation post device implantation when determined to be safe. Admission and Anticipated Discharge Date Admission Date: June 21, 2023 Supervising Physician Co-Signing Physician Notes Attending attestation: Case reviewed with the advanced practitioner. I have personally performed a history and physical examination on the patient. I have reviewed the advanced practitioner's documentation on the date of service referenced in note, and I agree with, and take responsibility for the plan of care. Subjective: Patient sitting in bedside chair without complaints. Needed significant assistance for standing and anticipate need for rehab. Telemetry reveals sinus bradycardia in the 50s while sitting in the chair, 40s to 50s overnight last night with no high-grade AV block. Exam: Cardiovascular regular, 1/6 murmur, 2+ lower extremity pitting edema Skin: Erythema and groin skin folds consistent with yeast infection, which is improved with the administration of Desenex compared to when she was initially examined in the emergency department 2 days ago Mild erythema over the buttocks but no skin breakdown Impression: Tachybradycardia syndrome Paroxysmal atrial fibrillation Acute heart failure with preserved ejection fraction Plan: -Increase furosemide to 40 mg IV twice daily -Change in schedule permits implantation of dual-chamber permanent pacemaker today. -Continue topical treatment of groin skin folds. -Pt agreeable to pacemaker. -Updates provided to her nurse. Case discussed with Dr Johnson for the purpose of coordination of care. Ray Gallegos, Subjective Patient seen and examined. Chart, medications, telemetry reviewed. Maybe some improvement in lower extremity peripheral edema. Breathing is okay. No chest pain. No palpitations. Telemetry: Bradycardia into the 40s overnight, currently in the mid 50s. No recurrent atrial fibrillation/flutter thus far. Review of Systems Review of Systems: Complete review of systems is otherwise as stated above, negative, or noncontributory Physical Exam Physical Exam: General: Alert and oriented x 3. No acute distress. Pleasant. Comfortable. Cooperative. HENT: Normocephalic. Atraumatic. Eyes: PER. Conjunctiva pink, sclera clear. Neck: JVD. Heart: Regular at 54 bpm. Lungs: Faint bibasilar rales. Abdomen: Obese. + Rash in the inguinal folds bilaterally. +BS. Soft. Nontender. No organomegaly. Extremities: 2+ pitting edema. No clubbing. No cyanosis Limited neurological examination is without focal deficits. Pulses: radial=2/4, posterior tibial=1/4 Results & Data Vital Signs (Past 12 Hours) Vital Signs Temp Pulse Resp BP BP Pulse Ox O2 Del Method 06/23/23 07:51 36.5 C 54 L 18 123/67 93 Room Air 06/23/23 02:18 36.7 C 53 L 18 122/71 94 Room Air 06/22/23 23:57 Room Air 06/22/23 23:03 36.4 C L 52 L 16 119/64 96 Room Air Laboratory Results CBC 06/23/23 Range/Units 06:54 WBC 4.48 L (4.8-10.8) K/ul RBC 3.82 L (4.20-5.40) M/uL Hgb 11.4 L (12.0-16.0) g/dl Hct 34.2 L (37.0-47.0) % Plt Count 126 L (130-400) K/uL Comprehensive Metabolic Panel 06/23/23 Range/Units 06:54 Sodium 139 (136-145) mmol/L Potassium 4.1 (3.5-5.1) mmol/L Chloride 102 (98-107) mmol/L Carbon Dioxide 33 H (21-32) mmol/L BUN 30 H (6-23) mg/dl Creatinine 1.13 (0.6-1.2) mg/dl Glucose 71 (70-99(Fasting)) mg/dl Calcium 8.4 L (8.6-10.3) mg/dl Intake and Output 06/22/23 06/23/23 06/23/23 22:59 06:59 14:59 Intake Total 270 / 830 200 / 830 Output Total 0 / 600 600 / 600 Balance 270 / 230 -400 / 230 Intake: Oral 270 / 830 200 / 830 Output: Urine Amount (Catheter) 0 / 600 600 / 600 External 0 / 600 600 / 600 Other: # Unmeasured Voids 1 Weight 90.8 kg
[2023-06-23] MEDS: POTASSIUM CHLORIDE CRTAB 20 MEQ TABCR PO ONE (11:27)
[2023-06-23] MEDS: FUROSEMIDE 40 MG/4 ML VIAL IV SCH (11:28)
--- NOTE | 2023-06-23 12:25 | Hospitalist Progress Note ---
Date of Service June 23, 2023 Assessment & Plan (1) Heart failure, diastolic, with acute decompensation: Plan: 72 y/o female with new PAF, on AC, HTN, dyslipidemia, hypothyroidism, and prior CVA who was referred to the ED today from outpatient cardiology for acute heart failure. She notes progressive LE edema over the last ten days. Rhythm has converted from atrial fibrillation with RVR to sinus bradycardia. Tachybrady syndrome Continue IV Lasix. Now increased to 40mg BID Monitor electrolytes Monitor fluid intake and output. Echocardiogram noted moderate concentric LVH, no regional wall motion abnormality, EF of 65 to 70%, mildly dilated RV with normal RV systolic function, mildly dilated LA, mild valvular aortic stenosis, moderate tricuspid regurgitation, grade 2 diastolic dysfunction. Discussed with community services manager Plan for possible PPM today Continue to hold Eliquis in view of possible procedure. Continue to hold home metoprolol and amiodarone for now. (2) Paroxysmal atrial fibrillation: (3) Tachy-dallas syndrome: (4) Symptomatic bradycardia: Plan: As above (5) Hypothyroidism: Plan: TSH mildly elevated at 5.42 Had been normal Continue levothyroxine at outpatient dose for now Will need repeat TFT outpatient (6) Dyslipidemia: Plan: Chronic, stable Continue statin (7) Essential hypertension: Plan: BP running low with intermittent highs' Monitor. BB on hold as above. Monitor (8) Dermatitis: Plan: Intertrigo Fungal dermatitis Continue miconazole powder BID Plan Code Status: Full code DVT Prophylaxis:Apixaban on hold for procedure I spent a total of 45 minutes coordinating, documenting and providing care for this patient excluding time spent in performance of separately billed services Admission and Anticipated Discharge Date Admission Date: June 21, 2023 Subjective Patient seen and examined. No new complaints today. Still has leg edema. Denies any cough, chest pain or shortness of breath Physical Exam Constitutional: + well hydrated; no acute distress Eyes: PERRL, conjunctivae normal, anicteric sclerae ENMT: external ear and nose normal, oropharynx normal Respiratory: normal respiratory effort; no respiratory distress Cardiovascular: Rate/Rhythm: + bradycardic S1-S2 Gastrointestinal (Abdomen): normal bowel sounds, soft, nontender, no hepatosplenomegaly Musculoskeletal: Bilateral pedal edema Skin: Intertrigo under abdominal skin folds Neurologic: PERRL, EOMI, accommodation nl, no face palsy, no dysarthria Psychiatric: A+Ox3, euthymic affect Results & Data Results & Data Vital Signs (Past 12 Hours) Vital Signs Temp Pulse Pulse Resp BP BP Pulse Ox 06/23/23 11:29 36.5 C 54 L 16 154/83 H 96 06/23/23 09:00 06/23/23 08:00 52 L 06/23/23 07:51 36.5 C 54 L 18 123/67 93 06/23/23 02:18 36.7 C 53 L 18 122/71 94 O2 Del Method 06/23/23 11:29 Room Air 06/23/23 09:00 Room Air 06/23/23 08:00 06/23/23 07:51 Room Air 06/23/23 02:18 Room Air Laboratory Results Abnormal lab results 06/23/23 Range/Units 06:54 WBC 4.48 L (4.8-10.8) K/ul RBC 3.82 L (4.20-5.40) M/uL Hgb 11.4 L (12.0-16.0) g/dl Hct 34.2 L (37.0-47.0) % RDW Std Deviation 49.2 H (36.4-46.3) fL RDW Coeff of Zulay 15.1 H (11.5-14.5) % Plt Count 126 L (130-400) K/uL Carbon Dioxide 33 H (21-32) mmol/L BUN 30 H (6-23) mg/dl BUN/Creatinine Ratio 26.5 H (10-20) Calcium 8.4 L (8.6-10.3) mg/dl (5) Hypothyroidism Hypothyroidism type: unspecified Qualified Code(s): E03.9 - Hypothyroidism, unspecified
--- NOTE | 2023-06-23 14:53 | Pre Anesthesia Assessment ---
Date of Service June 23, 2023 Pre Sedation Assessment Vital Signs Temp Pulse Pulse Resp BP BP Pulse Ox 06/23/23 11:29 36.5 C 54 L 16 154/83 H 96 06/23/23 09:00 06/23/23 08:00 52 L 06/23/23 07:51 36.5 C 54 L 18 123/67 93 06/23/23 02:18 36.7 C 53 L 18 122/71 94 06/22/23 23:57 06/22/23 23:03 36.4 C L 52 L 16 119/64 96 06/22/23 21:06 135/68 06/22/23 20:30 06/22/23 19:36 36.5 C 53 L 18 172/87 H 94 06/22/23 15:20 51 L 06/22/23 15:05 36.4 C L 54 L 18 106/61 91 O2 Del Method 06/23/23 11:29 Room Air 06/23/23 09:00 Room Air 06/23/23 08:00 06/23/23 07:51 Room Air 06/23/23 02:18 Room Air 06/22/23 23:57 Room Air 06/22/23 23:03 Room Air 06/22/23 21:06 06/22/23 20:30 Room Air 06/22/23 19:36 Room Air 06/22/23 15:20 06/22/23 15:05 Room Air Cardiovascular RRR, no murmur, no edema + bradycardic Respiratory normal respiratory effort, lungs clear to auscultation Pre-Sedation Airway Assessment Smoking Status: Never smoker Hx Sleep Apnea: No Short, Thick Neck: No Thyromental Distance: > or= 3.5 Finger Breadths Oral Cavity: + WNL Mallampati Class: IV ASA: ASA4 NPO Status Date of Last Intake of Fluids: 06/23/23 Time of Last Intake of Fluids: 08:00 Last Oral Intake of Fluids Comment: breakfast Date of Last Intake of Solid Food: 06/23/23 Time of Last Intake of Solid Foods: 08:00 Last Intake of Solids Comment: breakfast Procedure Planning Contraindications for Sedation: none Current Medications Reviewed: Yes Notes The planned sedation has been discussed with the patient. Informed Consent was obtained. I have identified the patient, determined the appropriateness of sedation and have assessed the patient immediately prior to the procedure. All medicine(s) and interventions are by my order.
--- NOTE | 2023-06-23 14:53 | History & Physical Bridge Note ---
Date of Service June 23, 2023 History & Physical Bridge Note I have examined the patient, reviewed the History & Physical and in the interval since the performance of the History & Physical I have noted the following changes of clinical significance: pt with TBS for a ppm prior to hospital discharge; discussed the procedure and potential risks-consents signed
[2023-06-23] MEDS: LIDOCAINE 1% LOCAL 20 ML VIAL ONE (15:08)
[2023-06-23] MEDS: VANCOMYCIN HCL 1000MG/20ML VIAL ONE (15:08)
[2023-06-23] MEDS: BUPIVACAINE 0.25% PF 30 ML VIAL ONE (15:08)
[2023-06-23] MEDS: WATER, STERILE FOR INJ 10 ML VIAL ONE (15:09)
[2023-06-23] MEDS: ceFAZolin 330 MG/ML 1 GM VIAL ONE (15:09)
[2023-06-23] MEDS: fentaNYL citrate PF 100 MCG/2 ML VIAL ONE (16:08)
[2023-06-23] MEDS: MIDAZOLAM HCL 5 MG/ML 1 ML VIAL ONE (16:08)
[2023-06-23] MEDS: diphenhydrAMINE 50 MG/ML VIAL ONE (16:08)
--- NOTE | 2023-06-23 16:34 | Post Anesthesia Assessment ---
Date of Service June 23, 2023 Post Sedation Assessment Vital Signs Temp Pulse Pulse Resp BP BP Pulse Ox 06/23/23 14:00 51 L 06/23/23 11:29 36.5 C 54 L 16 154/83 H 96 06/23/23 09:00 06/23/23 08:00 52 L 06/23/23 07:51 36.5 C 54 L 18 123/67 93 06/23/23 02:18 36.7 C 53 L 18 122/71 94 06/22/23 23:57 06/22/23 23:03 36.4 C L 52 L 16 119/64 96 06/22/23 21:06 135/68 06/22/23 20:30 06/22/23 19:36 36.5 C 53 L 18 172/87 H 94 O2 Del Method 06/23/23 14:00 06/23/23 11:29 Room Air 06/23/23 09:00 Room Air 06/23/23 08:00 06/23/23 07:51 Room Air 06/23/23 02:18 Room Air 06/22/23 23:57 Room Air 06/22/23 23:03 Room Air 06/22/23 21:06 06/22/23 20:30 Room Air 06/22/23 19:36 Room Air Recovery Score Activity: Moves 4 extremities Respiration: Deep Breath/Cough Circulation: +/-20% PreAnes Value Consciousness: Fully Awake Oxygen Saturation: > 92% On Room Air Discharge Sedation Level of Care: Fast Track Phase II Post Sedation Plan On clinical assessment, the patient appears to have tolerated the sedation without complications. Patient is recovering as anticipated. Patient will continue to be monitored by nursing and may be discharged when sedation discharge criteria are met per below protocol. Upon Completions of procedure up to 15 minutes continue every 5 minute vital signs and the P.A.R. score; then discharge to a Phase I or Fast Track to Phase II per the following guidelines: * Discharge Patient to appropriate Phase II area if PAR is 8 or greater or return to pre- procedure baseline. The post - procedure orders will be as directed. * If PAR score is less than 8 or not return to pre-procedure baseline then patient will follow Phase I monitoring till PAR is reached for Phase II. The Phase I may be done in procedure room or may call to secure a Phase I area. * If naloxone or flumazenil are used for reversal, hold in Phase I for continued monitoring from when last reversal dose was given for a minimum of 60 minutes or longer pending the nurse and/or physician discretion of patient condition before discharge to Phase II. Please call the Sedation Physician to re-evaluate and complete post-note for discharge to Phase II area. Do NOT discharge from procedure sedation or Phase 1 until post- sedation evaluation note is complete by procedure /sedation MD Sedation Discharge Instructions to be given to the patient at discharge to home.
--- NOTE | 2023-06-23 16:59 | Operative Report ---
Post Operative Report DICTATED BY:India Rome D.O. DATE OF PROCEDURE: 06/24/2023 PREOPERATIVE DIAGNOSES: CTBS POSTOPERATIVE DIAGNOSIS: Same PROCEDURE: A dual-chamber rate responsive permanent pacemaker, along with a peripheral venogram under fluoroscopic guidance. SURGEON: India Rome DO ASSISTANTS: None. ANESTHESIA: Monitored conscious sedation administered under my supervision by Kim nolasco. Start time 15:07, end time 16:20, a total of 2 mg of Versed and 75 mcg of fentanyl. INTRAVENOUS FLUIDS: 60 mL. CONTRAST: 25 mL. ANTIBIOTICS: 2 grams of Ancef. ADDITIONAL MEDICATIONS: 125mg benadryl BLOOD LOSS: 50 mL. URINE OUTPUT: Not applicable. SPECIMENS: None. FINDINGS: See below. DRAINS: None. COMPLICATIONS: None. CONDITION: Stable. INDICATIONS: This is a 72-year-old female who has a past medical history HTN, pAF on eliquis amiodarone and metoprolol. She was admitted from the office due to worsening TBS and recommended a ppm prior to discharge. CONSENT: Consent was obtained prior to the patient going into the electrophysiology lab. The patient was informed of the risks, benefits, and alternatives to the procedure. Risks include, but not limited to, sudden cardiac , cardiac arrhythmias, cerebrovascular accident, myocardial infarction, injury to his blood vessels, chamber of the heart and lung, bleeding and infection. The patient understood these risks and agreed to the procedure as planned. Informed consent was obtained. DESCRIPTION OF PROCEDURE: The patient was brought into electrophysiology lab in a fasting state. She was connected to continuous cardiac monitoring. A timeout was performed to ensure the patient's identity and procedure correctly. SHe was prepped and draped in the left infraclavicular space in normal surgical standard fashion. Monitored conscious sedation was given throughout the procedure for the patient's comfort level. Corinna precautions were maintained throughout the procedure. Prophylactic antibiotics were given prior to incision. A 20 mL of 1% lidocaine and bupivacaine mixture were given in the left deltopectoral groove. An incision was made in the left deltopectoral groove. Blunt dissection was performed down to the pectoralis muscle. Then, using blunt dissection over the pectoralis muscle within the pectoral fascia, a pacemaker pocket was created. Then, a peripheral venogram was performed to identify the axillary vein. Of note I ended up doing this venogram 2x due to the clavicle being a little too cephalic. Venous axillary access was obtained through a needlestick without any problems. A guidewire was inserted without any resistance. A 6-Dutch sheath was inserted over the guidewire without any resistance. Dilator was removed and a second guidewire was inserted through the sheath to allow for retained venous access. Then a 9 Dutch sheath was inserted over one of the guidewires. The guidewire and dilator were removed. Then, the [employer]ator 3D medium sheath was inserted through the 9-Dutch sheath over a Glidewire into the right ventricle. The Glidewire and dilator were removed. Then, the left bundle lead was advanced through the sheath and intracardiac electrogram His bundle recordings were performed when the camera was in CRUZ 15 (pt was rotated). I had an idea where the His bundle was but I never saw a clear HIS. I then moved the camera to CRUZ 35 and marked where I thought the His bundle area was on my fluoroscopy screen. I came down about 2 cm from this in a line that would extend out to the apex and then started coming on pacing. Once I found an area where I had a nice W formed pace complex in my lead V1, I then moved the camera to URUGUAYAN 35. Then the helix was extended into the septum. Then the helix locking tool was placed. Then the lead was screwed further into the septum while pacing by giving slow clockwise turns. The paced complex changed to a nice R' in V1 and the pacing stim to peak QRS in V6 was good. I then gave contrast through the sheath to see how far the lead was into the septum and then I slit the [employer]ator 3D medium sheath under fluoroscopic guidance and left the 9-Dutch sheath in while I positioned the right atrial lead. A 6-Dutch sheath was inserted over the retained guidewire, the guidewire and di lator removed. The right atrial lead was then advanced into right atrium and positioned into right atrial appendage under fluoroscopic guidance. Of note i did reposition it one time due to it dislodging when I put the straight stylet back in place. The second position I used a larger curved J formed sylet and this worked. There was adequate pacing and sensing thresholds and no diaphragmatic stimulation with high output pacing. The 6-Dutch sheath was peeled away and the lead was fixated to the pectoralis muscle using 0 silk suture. The 9-Dutch sheath around the left bundle lead was peeled away and the lead was fixated to pectoralis muscle using 0 silk suture. The pocket was flushed with copious amounts of vancomycin and saline wash and inspected for hemostasis. The leads were then attached to the pulse generator making sure the pins were in appropriate position, passed set screws, and set screws were all tightened. Pulse generator was then placed in the pocket, making sure the leads were lying flat beneath the device. The incision was closed in a 3-layer fashion using 2-0 Vicryl interrupted suture, followed by 3-0 Vicryl interrupted suture, followed by 4-0 Monocryl running stitch. Then a primaseal dressing was placed EQUIPMENT: 1. Pulse generator is a [employer] AS MRI Model Number [id number] SN: [id number]. 2. Right atrial lead, [employer] Tendril STS [id number] SN: [id number] 3. Left bundle lead, [employer] Tendril STS [id number] SN: [id number] INTRAPROCEDURAL FINDINGS: 1. Right atrial lead, P waves 2.6 millivolts, impedance 580 ohms, threshold 1.6 volts at 0.4 milliseconds. 3. Left bundle lead, R waves 6.5 millivolts, impedance 729 ohms, threshold 1.4 volts at 0.4 milliseconds. FINAL MEASUREMENTS THROUGH THE DEVICE: 1. Right atrial lead, P waves 1.9millivolts, impedance 550 ohms, threshold 1.25 volt at 0.4 milliseconds. 2. Left bundle lead, R waves 7.8 millivolts, impedance 756 ohms, threshold 1.75 volts at 0.4 milliseconds. FINAL PARAMETERS: DDD 60/120, right atrial amplitude 3.5 volts, pulse width 0.4 milliseconds, sensitivity 0.5 millivolts. Left bundle lead amplitude 3.5 volts, pulse width 0.4 milliseconds, sensitivity 2 millivolts. IMPRESSION: Successful dual chamber rate responsive permanent pacemaker under fluoroscopic guidance along with peripheral venogram all under fluoroscopic guidance secondary to TBS PLAN: Monitor the patient post-procedure. A 12-lead ECG, chest x-ray. She is not to lift the left elbow or left shoulder for 1 month. She cannot lift more than 10 pounds with the left arm for 2 weeks. She is to keep the dressing on and dry until her wound check. She is to wear a surgical bra for next 2 weeks at least to help with wound healing. Hold eliquis for tonight. Restart amio and metoprolol.
[2023-06-23] MEDS: AMIODARONE 200 MG TAB PO SCH (17:56)
--- NOTE | 2023-06-23 19:31 | XRay Report ---
XR chest 1V portable CLINICAL HISTORY: s/p ppm ensure no PTX COMPARISON STUDY: Chest radiograph June 21, 2023. FINDINGS: This exam is compromised given difficulty positioning. The patient is rotated. There is no pneumothorax following placement of a dual-lead left subclavian pacer. There is a small left pleural effusion with left basilar opacity. IMPRESSION: 1. No pneumothorax following placement of a dual-lead left subclavian pacer. 2. Rotated exam. ACT 112: Negative or not required by law. Electronically signed by: Ras Bear M.D. 06/23/2023 7:30 PM
[2023-06-23] MEDS: METOPROLOL SUCC 25MG EXT REL TAB PO SCH (20:58)
--- NOTE | 2023-06-24 05:44 | Electrocardiogram Report ---
Test Reason : Blood Pressure : / mmHG Vent. Rate : 042 BPM Atrial Rate : 042 BPM P-R Int : 208 ms QRS Dur : 158 ms QT Int : 620 ms P-R-T Axes : 068 100 -28 degrees QTc Int : 517 ms Poor data quality, interpretation may be adversely affected Marked sinus bradycardia Right bundle branch block T wave abnormality, consider inferior ischemia Abnormal ECG When compared with ECG of 22-APR-2023 07:06, Sinus rhythm has replaced Atrial fibrillation Vent. rate has decreased BY 78 BPM Criteria for Lateral infarct are no longer Present Confirmed by Chema Jasmine ([id number]) on 06/24/2023 5:44:11 AM Referred By: Confirmed By:Chema Jasmine
[2023-06-24 06:59] LABS: Hematocrit (blood only) 37.7 % (37.0-47.0); Hemoglobin 12.7 g/dl (12.0-16.0); Mean Corpuscular Hemoglobin 29.9 pg (25.0-34.0); Mean Corpuscular Hgb Conc 33.7 g/dL (32.0-36.0); Mean Corpuscular Volume 88.7 fL (80.0-100.0); Mean Platelet Volume 9.7 fL (9.4-12.4); Platelet Count 134 K/uL (130-400); RDW Coefficient of Variation 14.7 % (11.5-14.5); RDW Standard Deviation 47.8 fL (36.4-46.3); Red Blood Count 4.25 M/uL (4.20-5.40); White Blood Count 6.04 K/ul (4.8-10.8)
[2023-06-24 07:27] LABS: BUN Creatinine Ratio 26.2 (10-20); Creatinine Clr Calc Pharmacy 51.2 ml/min; Est GFR (African American) 60.1 ml/min; Est GFR (Non-African American) 51.8 ml/min; Magnesium 1.7 mg/dl (1.7-2.4); Phosphorus 4.5 mg/dl (2.5-4.9); Potassium 4.2 mmol/L (3.5-5.1)
--- NOTE | 2023-06-24 10:01 | Cardiology Progress Note ---
Date of Service June 24, 2023 Assessment & Plan (1) Heart failure, diastolic, with acute decompensation: (2) Symptomatic bradycardia: (3) Tachy-dallas syndrome: (4) Paroxysmal atrial fibrillation: (5) RBBB (right bundle branch block): (6) CVA (cerebral vascular accident): Plan Acute decompensated diastolic congestive heart failure. - Continue IV furosemide 40 mg twice per day through today then reassess ongoing need in AM of June 25, 2023, likely switching to oral in the next 1 to 2 days Marked symptomatic bradycardia, Tachy-Dallas Syndrome. Status post June 23, [address] Rome. Post procedure chest x-ray without pneumothorax. Device interrogation this morning demonstrated appropriate function. - Pulse generator: [employer] MRI Model Number [id number] SN: [id number]. - Right atrial lead: Olivier SJM Tendril STS 2088TC SN: [id number] - Left bundle lead: Olivier SJM Tendril STS 2088TC SN: [id number] Paroxysmal atrial fibrillation/flutter, Tachy-Bradycardia Syndrome, chronic right bundle branch block - Lower dose amiodarone (200 mg/day) and metoprolol succinate (12.5 mg twice per day) presumed post device implantation. [id number] Score 5 points. CVA in 2013. - Resume Eliquis anticoagulation this PM. General debility/deconditioning. Consult Physical Therapy. Possible rehabilitation post hospitalization discussed Admission and Anticipated Discharge Date Admission Date: June 21, 2023 Supervising Physician Co-Signing Physician Notes Attending attestation: Case reviewed with the advanced practitioner. I have personally performed a history and physical examination on the patient. I have reviewed the advanced practitioner's documentation on the date of service referenced in note, and I agree with, and take responsibility for the plan of care. Subjective: Patient lying in bed comfortably. No acute complaints. Telemetry reveals sinus rhythm with atrial pacing in the 60s, negative conducted QRS complexes with right bundle branch block noted. No atrial fibrillation overnight last night. Exam: Cardiovascular regular, 1/6 murmur, 2+ lower extremity pitting edema Chest: Dressing over left infraclavicular pacemaker pocket removed, mild erythema, without hematoma or drainage Data: Chest x-ray performed post procedure revealed no pneumothorax and appropriate lead placement Impression: Tachybradycardia syndrome Paroxysmal atrial fibrillation Acute heart failure with preserved ejection fraction Plan: -Patient tolerated implantation of dual-chamber Olivier permanent pacemaker on 06/23/2023 -Post procedure chest x-ray without pneumothorax. -Remote device interrogation reviewed with Olivier auto service representative, with normal function. -Continue furosemide 40 mg IV twice daily -Amiodarone resumed at a dose of 200 mg daily, metoprolol succinate resumed at 12.5 mg twice daily. -TSH and free T4 minimally elevated earlier this hospital stay, amiodarone dose has been reduced from 200 mg twice daily to 200 mg daily. -Resume Eliquis at 2100 on 06/24/2023 -Dressing changed by Dr. Gallegos today -Will need to establish with device clinic and have wound check in 6 to 10 days. -Anticipate need for rehab. -Continue topical Desenex in skin folds. -Dr Raul smith on 06/25/23. Ray Gallegos, Subjective Patient seen and examined. Chart, medications, telemetry reviewed. No chest pain. No pleuritic discomfort. No palpitations. No shortness of breath. No fevers or chills I/O's: -880 mL, +230 mL's, -3,400 mL's Telemetry: Paced in the 60s Review of Systems Review of Systems: Complete review of systems is otherwise as stated above, negative, or noncontributory Physical Exam Physical Exam: General: Alert and oriented x 3. No acute distress. Pleasant. Comfortable. Cooperative. Skin: Left subclavian dressing not removed. No significant surrounding hematoma or acute ecchymosis observed HENT: Normocephalic. Atraumatic. Eyes: PER. Conjunctiva pink, sclera clear. Neck: JVD. Heart: Regular at 60 bpm. Lungs: Clear Abdomen: Obese. + Rash in the inguinal folds bilaterally. +BS. Soft. Nontender. No organomegaly. Extremities: 1+ pitting edema with improved erythema. No clubbing. No cyanosis Limited neurological examination is without focal deficits. Pulses: radial=2/4, posterior tibial=1/4 Results & Data Vital Signs (Past 12 Hours) Vital Signs Temp Pulse Pulse Resp BP Pulse Ox O2 Del Method 06/24/23 07:42 36.3 C L 60 18 123/73 91 Room Air 06/24/23 03:38 36.4 C L 60 18 114/75 92 Room Air 06/23/23 23:38 60 Laboratory Results CBC 06/24/23 Range/Units 06:17 WBC 6.04 (4.8-10.8) K/ul RBC 4.25 (4.20-5.40) M/uL Hgb 12.7 (12.0-16.0) g/dl Hct 37.7 (37.0-47.0) % Plt Count 134 (130-400) K/uL Comprehensive Metabolic Panel 06/24/23 Range/Units 06:17 Sodium 138 (136-145) mmol/L Potassium 4.2 (3.5-5.1) mmol/L Chloride 98 (98-107) mmol/L Carbon Dioxide 34 H (21-32) mmol/L BUN 28 H (6-23) mg/dl Creatinine 1.07 (0.6-1.2) mg/dl Glucose 71 (70-99(Fasting)) mg/dl Calcium 9.0 (8.6-10.3) mg/dl Intake and Output 06/23/23 06/24/23 06/24/23 22:59 06:59 14:59 Intake Total 500 / 500 0 / 500 Output Total 600 / 3900 2650 / 3900 Balance -100 / -3400 -2650 / -3400 Intake: Oral 500 / 500 0 / 500 Output: Urine 600 / 1250 Urine Amount (Catheter) 2650 / 2650 External 2650 / 2650 Other: Weight 81.6 kg Weight Measurement Method Built in [facility]
--- NOTE | 2023-06-24 12:00 | Hospitalist Progress Note ---
Date of Service June 24, 2023 Assessment & Plan (1) Heart failure, diastolic, with acute decompensation: (2) Paroxysmal atrial fibrillation: (3) Tachy-dallas syndrome: (4) Symptomatic bradycardia: Plan: 72 y/o female with new PAF, on AC, HTN, dyslipidemia, hypothyroidism, and prior CVA who was referred to the ED today from outpatient cardiology for acute heart failure. She notes progressive LE edema over the last ten days. Rhythm has converted from atrial fibrillation with RVR to sinus bradycardia. Tachybrady syndrome Continue IV Lasix 40mg BID Monitor electrolytes Monitor fluid intake and output. Echocardiogram noted moderate concentric LVH, no regional wall motion abnormality, EF of 65 to 70%, mildly dilated RV with normal RV systolic function, mildly dilated LA, mild valvular aortic stenosis, moderate tricuspid regurgitation, grade 2 diastolic dysfunction. S/P PPM on 06/23/23 Discussed with Universal Winding Machine Operator Alvin to resume eliquis tonight Home metoprolol and amiodarone have been resumed (5) Hypothyroidism: Plan: TSH mildly elevated at 5.42 Had been normal Continue levothyroxine at outpatient dose for now Will need repeat TFT outpatient (6) Dyslipidemia: Plan: Chronic, stable Continue statin (7) Essential hypertension: Plan: BP stable (8) Dermatitis: Plan: Intertrigo Fungal dermatitis Continue miconazole powder BID Plan Code Status: Full code DVT Prophylaxis:Apixaban I spent a total of 40 minutes coordinating, documenting and providing care for this patient excluding time spent in performance of separately billed services Admission and Anticipated Discharge Date Admission Date: June 21, 2023 Subjective Patient seen and examined. No new complaints Had PPM placed yesterday. No pain at surgical site at this time Denied chest pain, cough, SOB Physical Exam Constitutional: + well hydrated; no acute distress Eyes: PERRL, conjunctivae normal, anicteric sclerae ENMT: external ear and nose normal, oropharynx normal Respiratory: normal respiratory effort; no respiratory distress Cardiovascular: Rate/Rhythm: regular rate and regular rhythm S1 S2 Gastrointestinal (Abdomen): normal bowel sounds, soft, nontender, no hepatosplenomegaly Musculoskeletal: +pedal edema Neurologic: PERRL, EOMI, accommodation nl, no face palsy, no dysarthria Psychiatric: A+Ox3, euthymic affect Results & Data Results & Data Vital Signs (Past 12 Hours) Vital Signs Temp Pulse Pulse Resp BP Pulse Ox O2 Del Method 03/15/24 11:02 36.4 C L 60 18 125/82 91 Room Air 06/24/23 07:42 36.3 C L 60 18 123/73 91 Room Air 06/24/23 07:00 63 06/24/23 03:38 36.4 C L 60 18 114/75 92 Room Air Laboratory Results Abnormal lab results 06/24/23 Range/Units 06:17 RDW Std Deviation 47.8 H (36.4-46.3) fL RDW Coeff of Zulay 14.7 H (11.5-14.5) % Carbon Dioxide 34 H (21-32) mmol/L BUN 28 H (6-23) mg/dl BUN/Creatinine Ratio 26.2 H (10-20) (5) Hypothyroidism Hypothyroidism type: unspecified Qualified Code(s): E03.9 - Hypothyroidism, unspecified
[2023-06-24] MEDS: APIXABAN 5 MG TABLET PO SCH (20:55)
[2023-06-25 09:12] LABS: BUN Creatinine Ratio 29.1 (10-20); Creatinine Clr Calc Pharmacy 53.3 ml/min; Est GFR (African American) 62.9 ml/min; Est GFR (Non-African American) 54.3 ml/min; Magnesium 1.6 mg/dl (1.7-2.4); Phosphorus 3.7 mg/dl (2.5-4.9); Potassium 3.9 mmol/L (3.5-5.1)
[2023-06-25 09:17] LABS: Hemoglobin 12.8 g/dl (12.0-16.0); Mean Corpuscular Hemoglobin 29.6 pg (25.0-34.0); Mean Corpuscular Hgb Conc 33.7 g/dL (32.0-36.0); Mean Corpuscular Volume 87.8 fL (80.0-100.0); Mean Platelet Volume 9.4 fL (9.4-12.4); Platelet Count 151 K/uL (130-400); RDW Coefficient of Variation 14.4 % (11.5-14.5); RDW Standard Deviation 46.6 fL (36.4-46.3); Red Blood Count 4.33 M/uL (4.20-5.40); White Blood Count 7.41 K/ul (4.8-10.8)
[2023-06-25] MEDS: SENNA 8.6 MG TAB PO SCH (09:34)
--- NOTE | 2023-06-25 11:38 | Cardiology Progress Note ---
Date of Service June 25, 2023 Assessment & Plan (1) Heart failure, diastolic, with acute decompensation: (2) Symptomatic bradycardia: (3) Tachy-dallas syndrome: (4) Paroxysmal atrial fibrillation: (5) RBBB (right bundle branch block): (6) CVA (cerebral vascular accident): Plan Continue IV furosemide 40 mg twice daily. Consider transition to oral in the next 24 hours. Marked symptomatic bradycardia, Tachy-Dallas Syndrome s/p June 23, [address] Rome. Post procedure chest x-ray without pneumothorax. Device interrogation 06/24/2023 demonstrated appropriate function. - Pulse generator: [employer] MRI Model Number [id number] SN: [id number]. - Right atrial lead: Olivier SJM Tendril STS 8TC SN: [id number] - Left bundle lead: Olivier SJM Tendril STS 8TC SN: [id number] Continue amiodarone 200 mg daily, metoprolol succinate 12.5 mg twice daily, and Eliquis 5 mg twice daily. General debility/deconditioning. Possible rehabilitation post hospitalization discussed. Admission and Anticipated Discharge Date Admission Date: June 21, 2023 Subjective Patient seen and examined at bedside. Feeling better today. Fluid balance - 1415 cc. Atrial paced rhythm on telemetry. Denies chest pain or shortness of breath. Edema improved. Review of Systems 2 Review of Systems: All systems reviewed & are unremarkable except as noted in Subjective Physical Exam Constitutional: well nourished; no acute distress Respiratory: no respiratory distress, no labored breathing and no retractions Auscultation: no crackles, no rales, no rhonchi and no wheezes Cardiovascular: Rate/Rhythm: regular rate and regular rhythm Heart Sounds: normal S1, normal S2 and + murmur (1/6 systolic ejection murmur) Vessels: no JVD Extremities: + edema (1+ bilateral pretibial edema) Gastrointestinal (Abdomen): Inspection/Auscultation: normal bowel sounds; abdomen not distended Percussion/Palpation: abdomen soft; abdomen nontender, no guarding and abdomen not rigid Neurologic: CN's II-XI intact bilaterally and moves all extremities Results & Data Vital Signs (Past 12 Hours) Vital Signs Temp Pulse Pulse Resp BP Pulse Ox O2 Del Method 06/25/23 07:34 36.3 C L 60 18 150/78 H 94 Room Air 06/25/23 07:29 60 06/25/23 03:40 36.4 C L 60 18 134/77 92 Room Air Laboratory Results CBC 06/25/23 Range/Units 08:35 WBC 7.41 (4.8-10.8) K/ul RBC 4.33 (4.20-5.40) M/uL Hgb 12.8 (12.0-16.0) g/dl Hct 38.0 (37.0-47.0) % Plt Count 151 (130-400) K/uL Comprehensive Metabolic Panel 06/25/23 Range/Units 08:35 Sodium 134 L (136-145) mmol/L Potassium 3.9 (3.5-5.1) mmol/L Chloride 94 L (98-107) mmol/L Carbon Dioxide 33 H (21-32) mmol/L BUN 30 H (6-23) mg/dl Creatinine 1.03 (0.6-1.2) mg/dl Glucose 203 H (70-99(Fasting)) mg/dl Calcium 9.0 (8.6-10.3) mg/dl Intake and Output 06/24/23 06/25/23 06/25/23 22:59 06:59 14:59 Output Total 1599 Balance -1599 / -1415 Output: Urine 1599 Other: # Unmeasured Voids 1 Weight 82 kg
--- NOTE | 2023-06-25 13:25 | Electrocardiogram Report ---
Test Reason : Blood Pressure : / mmHG Vent. Rate : 060 BPM Atrial Rate : 060 BPM P-R Int : 218 ms QRS Dur : 156 ms QT Int : 516 ms P-R-T Axes : 000 129 014 degrees QTc Int : 516 ms Atrial-paced rhythm with prolonged AV conduction Right axis deviation Right bundle branch block Right ventricular hypertrophy T wave abnormality, consider anterolateral ischemia Abnormal ECG When compared with ECG of 21-JUN-2023 14:59, Electronic atrial pacemaker has replaced Sinus rhythm Confirmed by Matheus Stone ([id number]) on 06/25/2023 1:25:07 PM Referred By: Vladimir Carter Confirmed By:Matheus Stone
--- NOTE | 2023-06-25 14:34 | Hospitalist Progress Note ---
Date of Service June 25, 2023 Assessment & Plan (1) Heart failure, diastolic, with acute decompensation: (2) Paroxysmal atrial fibrillation: (3) Tachy-dallas syndrome: (4) Symptomatic bradycardia: Plan: 72 y/o female with new PAF, on AC, HTN, dyslipidemia, hypothyroidism, and prior CVA who was referred to the ED today from outpatient cardiology for acute heart failure. She notes progressive LE edema over the last ten days. Rhythm has converted from atrial fibrillation with RVR to sinus bradycardia. Tachybrady syndrome Continue IV Lasix 40mg BID Monitor electrolytes Monitor fluid intake and output. Echocardiogram noted moderate concentric LVH, no regional wall motion abnormality, EF of 65 to 70%, mildly dilated RV with normal RV systolic function, mildly dilated LA, mild valvular aortic stenosis, moderate tricuspid regurgitation, grade 2 diastolic dysfunction. S/P PPM on 06/23/23 Continue eliquis Continue metoprolol and amiodarone have been resumed (5) Hypothyroidism: Plan: TSH mildly elevated at 5.42 Had been normal Continue levothyroxine at outpatient dose for now Will need repeat TFT outpatient (6) Dyslipidemia: Plan: Chronic, stable Continue statin (7) Essential hypertension: Plan: BP stable (8) Dermatitis: Plan: Intertrigo Fungal dermatitis Continue miconazole powder BID Plan Code Status: Full code DVT Prophylaxis:Apixaban PT/OT eval noted Rehab recommended CM will work on placement on tuesday I spent a total of 40 minutes coordinating, documenting and providing care for this patient excluding time spent in performance of separately billed services Admission and Anticipated Discharge Date Admission Date: June 21, 2023 Subjective Patient seen and examined. Reports some constipation today Denied cough, chest pain, SOB No other new complaints Physical Exam Constitutional: + well hydrated; no acute distress Eyes: PERRL, conjunctivae normal, anicteric sclerae ENMT: external ear and nose normal, oropharynx normal Respiratory: normal respiratory effort; no respiratory distress Auscultation: lungs clear to auscultation bilaterally Cardiovascular: Rate/Rhythm: regular rate and regular rhythm S1 S2 Gastrointestinal (Abdomen): normal bowel sounds, soft, nontender, no hepatosplenomegaly Musculoskeletal: +pedal edema Neurologic: PERRL, EOMI, accommodation nl, no face palsy, no dysarthria Psychiatric: A+Ox3, euthymic affect Results & Data Results & Data Vital Signs (Past 12 Hours) Vital Signs Temp Pulse Pulse Resp BP Pulse Ox O2 Del Method 06/25/23 11:36 36.4 C L 60 16 134/80 94 Room Air 06/25/23 07:50 Room Air 06/25/23 07:34 36.3 C L 60 18 150/78 H 94 Room Air 06/25/23 07:29 60 06/25/23 03:40 36.4 C L 60 18 134/77 92 Room Air Laboratory Results Abnormal lab results 06/25/23 Range/Units 08:35 RDW Std Deviation 46.6 H (36.4-46.3) fL Sodium 134 L (136-145) mmol/L Chloride 94 L (98-107) mmol/L Carbon Dioxide 33 H (21-32) mmol/L BUN 30 H (6-23) mg/dl BUN/Creatinine Ratio 29.1 H (10-20) Glucose 203 H (70-99(Fasting)) mg/dl Magnesium 1.6 L (1.7-2.4) mg/dl (5) Hypothyroidism Hypothyroidism type: unspecified Qualified Code(s): E03.9 - Hypothyroidism, unspecified
[2023-06-26 06:13] LABS: BUN Creatinine Ratio 31.6 (10-20); Calcium 9.1 mg/dl (8.6-10.3); Creatinine Clr Calc Pharmacy 54.4 ml/min; Est GFR (African American) 66.8 ml/min; Est GFR (Non-African American) 57.6 ml/min; Magnesium 1.7 mg/dl (1.7-2.4); Phosphorus 3.7 mg/dl (2.5-4.9)
[2023-06-26] MEDS: POLYETHYLENE (MIRALAX) 17 GM PACK PO PRN (09:15)
--- NOTE | 2023-06-26 10:05 | Cardiology Progress Note ---
Date of Service June 26, 2023 Assessment & Plan (1) Heart failure, diastolic, with acute decompensation: (2) Symptomatic bradycardia: (3) Tachy-dallas syndrome: (4) Paroxysmal atrial fibrillation: (5) RBBB (right bundle branch block): (6) CVA (cerebral vascular accident): Plan Discontinue IV diuretic therapy. Transition to Lasix 20 mg daily in a.m. 06/27/2023, Continue amiodarone 200 mg daily, metoprolol succinate 12.5 mg twice daily, and Eliquis 5 mg twice daily. Marked symptomatic bradycardia, Tachy-Dallas Syndrome s/p June 23, [address] Rome. Post procedure chest x-ray without pneumothorax. Device interrogation 06/24/2023 demonstrated appropriate function. - Pulse generator: [employer] SJM [employer] MRI Model Number [id number] SN: [id number]. - Right atrial lead: Olivier SJM Tendril STS 2088TC SN: [id number] - Left bundle lead: Olivier SJM Tendril STS 2088TC SN: [id number] Outpatient device interrogation and wound wound check approximately 7 to 14 days postdischarge. No further inpatient cardiac testing or intervention recommended at this time. Patient may be discharged to rehab when bed available. Admission and Anticipated Discharge Date Admission Date: June 21, 2023 Subjective Patient seen and examined at the bedside. Feeling better today. Edema improved. Atrial paced rhythm on telemetry. Denies orthopnea, PND, or shortness of breath. No chest discomfort or heaviness. Fluid balance -3 L. Renal function remained stable. Review of Systems Review of Systems: All systems reviewed & are unremarkable except as noted in Subjective Physical Exam Constitutional: well nourished; no acute distress Respiratory: no respiratory distress, no labored breathing and no retractions Auscultation: no crackles, no rales, no rhonchi and no wheezes Cardiovascular: Rate/Rhythm: regular rate and regular rhythm Heart Sounds: normal S1, normal S2 and + murmur (1/6 systolic ejection murmur) Vessels: no JVD Extremities: + edema (Trace to mild bilateral pedal and ankle) Gastrointestinal (Abdomen): Inspection/Auscultation: normal bowel sounds; abdomen not distended Percussion/Palpation: abdomen soft; abdomen nontender, no guarding and abdomen not rigid Neurologic: CN's II-XI intact bilaterally and moves all extremities Results & Data Vital Signs (Past 12 Hours) Vital Signs Temp Pulse Pulse Resp BP BP Pulse Ox 06/26/23 07:52 36.3 C L 59 L 18 150/78 H 93 06/26/23 07:22 60 06/26/23 03:19 36.4 C L 60 15 118/72 93 06/26/23 01:19 60 06/25/23 22:46 36.6 C 60 17 118/65 92 O2 Del Method 06/26/23 07:52 Room Air 06/26/23 07:22 06/26/23 03:19 Room Air 06/26/23 01:19 06/25/23 22:46 Room Air Laboratory Results Comprehensive Metabolic Panel 06/26/23 Range/Units 05:30 Sodium 135 L (136-145) mmol/L Potassium 4.0 (3.5-5.1) mmol/L Chloride 94 L (98-107) mmol/L Carbon Dioxide 36 H (21-32) mmol/L BUN 31 H (6-23) mg/dl Creatinine 0.98 (0.6-1.2) mg/dl Glucose 91 (70-99(Fasting)) mg/dl Calcium 9.1 (8.6-10.3) mg/dl Intake and Output 06/25/23 06/26/23 06/26/23 22:59 06:59 14:59 Intake Total 100 / 700 Output Total 1000 / 3700 700 / 3700 Balance -1000 / -3000 -600 / -3000 Intake: Oral 100 / 700 Output: Urine Amount (Catheter) 1000 / 1900 700 / 1900 External 1000 / 1900 700 / 1900 Other: Weight 77 kg Weight Measurement Method [facility]
--- NOTE | 2023-06-26 11:10 | Hospitalist Progress Note ---
Date of Service June 26, 2023 Assessment & Plan (1) Heart failure, diastolic, with acute decompensation: (2) Paroxysmal atrial fibrillation: (3) Tachy-dallas syndrome: (4) Symptomatic bradycardia: Plan: 72 y/o female with new PAF, on AC, HTN, dyslipidemia, hypothyroidism, and prior CVA who was referred to the ED today from outpatient cardiology for acute heart failure. She notes progressive LE edema over the last ten days. Rhythm has converted from atrial fibrillation with RVR to sinus bradycardia. Tachybrady syndrome Echocardiogram noted moderate concentric LVH, no regional wall motion abnormality, EF of 65 to 70%, mildly dilated RV with normal RV systolic function, mildly dilated LA, mild valvular aortic stenosis, moderate tricuspid regurgitation, grade 2 diastolic dysfunction. S/P PPM on 06/23/23 Has been on IV lasix Cardiology plans to start po lasix tomorrow AM Continue eliquis Continue metoprolol and amiodarone have been resumed (5) Hypothyroidism: Plan: TSH mildly elevated at 5.42 Had been normal Continue levothyroxine at outpatient dose for now Will need repeat TFT outpatient (6) Dyslipidemia: Plan: Chronic, stable Continue statin (7) Essential hypertension: Plan: BP stable (8) Dermatitis: Plan: Intertrigo Fungal dermatitis Continue miconazole powder BID Plan Bowel regimen for constipation Code Status: Full code DVT Prophylaxis:Apixaban PT/OT eval noted Rehab recommended CM will work on placement tomorrow I spent a total of 35 minutes coordinating, documenting and providing care for this patient excluding time spent in performance of separately billed services Admission and Anticipated Discharge Date Admission Date: June 21, 2023 Subjective Patient seen and examined Reports mild left shoulder pain Reports constipation. Passing flatus Denied chest pain, cough, SOB, abd pain, nausea, vomiting Physical Exam Constitutional: + well hydrated; no acute distress Eyes: PERRL, conjunctivae normal, anicteric sclerae ENMT: external ear and nose normal, oropharynx normal Respiratory: normal respiratory effort; no respiratory distress Auscultation: lungs clear to auscultation bilaterally Cardiovascular: Rate/Rhythm: regular rate and regular rhythm S1 S2 Gastrointestinal (Abdomen): normal bowel sounds, soft, nontender, no hepatosplenomegaly Musculoskeletal: Trace pedal edema Neurologic: PERRL, EOMI, accommodation nl, no face palsy, no dysarthria Psychiatric: A+Ox3, euthymic affect Results & Data Results & Data Vital Signs (Past 12 Hours) Vital Signs Temp Pulse Pulse Resp BP BP Pulse Ox 06/26/23 07:52 36.3 C L 59 L 18 150/78 H 93 06/26/23 07:22 60 06/26/23 03:19 36.4 C L 60 15 118/72 93 06/26/23 01:19 60 O2 Del Method 06/26/23 07:52 Room Air 06/26/23 07:22 06/26/23 03:19 Room Air 06/26/23 01:19 Laboratory Results Abnormal lab results 06/26/23 Range/Units 05:30 Sodium 135 L (136-145) mmol/L Chloride 94 L (98-107) mmol/L Carbon Dioxide 36 H (21-32) mmol/L BUN 31 H (6-23) mg/dl BUN/Creatinine Ratio 31.6 H (10-20) (5) Hypothyroidism Hypothyroidism type: unspecified Qualified Code(s): E03.9 - Hypothyroidism, unspecified
[2023-06-26] MEDS: ACETAMINOPHEN 325 MG TAB PO PRN (12:45)
[2023-06-26] MEDS: bisacodyL 10 MG SUPP PR STA (16:00)
[2023-06-27 07:54] LABS: BUN Creatinine Ratio 32.2 (10-20); Calcium 8.8 mg/dl (8.6-10.3); Creatinine Clr Calc Pharmacy 61.5 ml/min; Est GFR (African American) 77.1 ml/min; Est GFR (Non-African American) 66.6 ml/min; Magnesium 1.8 mg/dl (1.7-2.4); Phosphorus 3.6 mg/dl (2.5-4.9)
[2023-06-27] MEDS: FUROSEMIDE 20 MG TAB PO SCH (08:13)
--- NOTE | 2023-06-27 15:29 | Discharge Summary ---
Date of Service June 27, 2023 Admission HPI Per Admitting Provider This is a 72 y/o female with new PAF, on AC, HTN, dyslipidemia, hypothyroidism, and prior CVA who was referred to the ED today from outpatient cardiology for acute heart failure. Pt was admitted to [facility] 04/15-04/26/23 with stroke-like symptoms but imaging negative for acute CVA. 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 On 04/20/23, pt developed afib with RVR but pt asymptomatic. Pt was treated with amiodarone and discharged on amiodarone 200 mg BID, Toprol XL 25 mg BID, and Eliquis 5 mg BID. She was seen at cardiology today for hospital follow-up and noted progressive LE edema over the last 7-10 days. She is not on chronic diuretics and has been taking the amiodarone and Toprol as directed. In the office, she was noted to have marked sinus bradycardia. She was referred to the ED for admission for management of acute heart failure and EP consult for possible pacemaker placement. Pt reports doing well initially after discharge. However, about ten days ago she started to develop LE edema. This has gradually worsened since then. She had at least one fall that she relates to the edema and a loss of balance. She denies syncopal episodes. She denies chest pain or palpitations. She sleeps propped up at night, and this is no worse than usual. Admission Exam Per Admitting Provider General: awake, alert, NAD HEENT: PERRL, no scleral icterus Mouth: moist oral mucosa Neck: trachea midline Heart: bradycardic but regular Lungs: faint rales at the bilateral bases but o/w clear Abdomen: soft, obese, +BS Extremities: 2+ pitting edema bilateral LE to knees Neurologic: Ox3, moving all extremities, no focal deficits noted Skin: +erythematous rash in inguinal folds Principal Diagnosis Heart failure, diastolic, with acute decompensation Tachybrady syndrome Symptomatic bradycardia Discharge Exam Constitutional + well hydrated; no acute distress Eyes PERRL, conjunctivae normal, anicteric sclerae ENMT external ear and nose normal, oropharynx normal Respiratory normal respiratory effort; no respiratory distress Auscultation: lungs clear to auscultation bilaterally Cardiovascular Rate/Rhythm: regular rate and regular rhythm S1 S2 Gastrointestinal (Abdomen) normal bowel sounds, soft, nontender, no hepatosplenomegaly Musculoskeletal Trace pedal edema Neurologic PERRL, EOMI, accommodation nl, no face palsy, no dysarthria Psychiatric A+Ox3, euthymic affect Discharge Data Allergies Allergy/AdvReac Type Severity Reaction Status Date / Time No Known Allergies Allergy Verified 04/15/23 20:15 Consultations 06/21/23 16:49 ED Decision to Admit Stat Procedures Performed Operation Date: 06/23/23 14:00 Actual Procedures p Pacer with A/V Leads (Dual) - DO kiesha Carvalho Bundle of his Recording - [place] Rome DO s Venogram, Unilateral - [place] Rome DO Ordered Studies 06/23/23 14:45 EP Lab Images for PACS ONCE Hospital Course (1) Heart failure, diastolic, with acute decompensation: (2) Paroxysmal atrial fibrillation: (3) Tachy-d[place] syndrome: (4) Symptomatic bradycardia: 72 y/o female with new PAF, on AC, HTN, dyslipidemia, hypothyroidism, and prior CVA who was referred to the ED today from outpatient cardiology for acute heart failure. She notes progressive LE edema over the last ten days. Rhythm has converted from atrial fibrillation with RVR to sinus bradycardia. Tachybrady syndrome Echocardiogram noted moderate concentric LVH, no regional wall motion abnormality, EF of 65 to 70%, mildly dilated RV with normal RV systolic function, mildly dilated LA, mild valvular aortic stenosis, moderate tricuspid regurgitation, grade 2 diastolic dysfunction. S/P PPM on 06/23/23 Was treated with IV lasix Transitioned to po lasix 20mg daily per Cardiology Continue eliquis Continue metoprolol succinate 12.5mg BID Amiodarone changed to 200mg daily Per Cardiology: Device and wound check at [facility] on Friday 11/03; they will call you with the time; keep dressing on and dry until then-sponge bath only She is not to lift the left elbow or left shoulder for 1 month. She cannot lift more than 10 pounds with the left arm for 2 weeks. She is to keep the dressing on and dry until her wound check. She is to wear a surgical bra for next 2 weeks at least to help with wound healing (5) Hypothyroidism: TSH mildly elevated at 5.42 Had been normal Continue levothyroxine at outpatient dose for now Will need repeat TFT outpatient by PCP (6) Dyslipidemia: Chronic, stable Continue statin (7) Essential hypertension: BP stable (8) Dermatitis: Intertrigo Fungal dermatitis Continue miconazole powder BID Plan Patient had PT/OT evaluation Rehab recommended Patient discharged to [facility] Total Time Total Time Spent Total Time Spent (In Minutes): 40 Total Time Includes: Examination of the Patient, Discharge Planning and Medication Reconciliation Discharge Plan Discharge Items Patient Disposition: Transfer Inpatient Rehab Fac Reason For Visit: SINUS BRADYCARDIA Discharge Diagnosis: Heart failure, diastolic, with acute decompensation Tachybrady syndrome Symptomatic bradycardia Activity: As commented below Activity Comment: Per PT recommendations Lifting: No more than 10 pounds Lifting Comment: do not lift mroe than 10 pounds with the left arm for 2 weeks Bathing: Keep incision dry Bathing Comment: keep dressing on & dry until wound check Non-emergency contact: Psychiatric Security Nurse Call non-emergency contact if: you have any medication questions Follow-up/Referrals: Bob Huynh [Primary Care Provider] - Diet: Heart Healthy and Low Sodium (2gm) Vanitl Attending Provider Instructions: Mrs Silva You were managed for the above listed diagnoses. You had a pacemaker placed Please ensure follow up with the Psychiatric Security Nurse and your Primary Doctor. Your amiodarone was changed to 200mg daily. You were started on a water pill called lasix (furosemide) 20mg daily Please continue your eliquis, metoprolol and other home medications You are being discharged to rehab. It was a pleasure taking care of you Addtl Regional Trainer Provider Instructions: Device and wound check at [facility] on Friday 11/03; they will call you with the time; keep dressing on and dry until then-sponge bath only She is not to lift the left elbow or left shoulder for 1 month. She cannot lift more than 10 pounds with the left arm for 2 weeks. She is to keep the dressing on and dry until her wound check. She is to wear a surgical bra for next 2 weeks at least to help with wound healing Pending Studies at Discharge: No Stand-Alone Forms: My [facility] [employer] Skilled Items Patient informed of condition?: Yes DNR: No Discharge Level of Care: Acute rehab Communicable Disease: No Discharge Prognosis: Stable Lines: None Urinary Catheter: No Medications and DC Order Prescriptions: New furosemide 20 mg Tablet 20 mg PO QAM Qty: 30 0RF miconazole nitrate [Desenex] 2 % Powder 1 applic EXT BID 5 Days Qty: 85 0RF Continued acetaminophen [Tylenol] 325 mg Tablet 650 mg PO Q4H PRN (Reason: PAIN/FEVER) omega-3 fatty acids 1,000 mg Capsule 1,000 mg PO BID levothyroxine 100 mcg tablet 100 mcg PO QAM Eliquis 5 mg Tablet 5 mg PO BID Qty: 60 0RF atorvastatin 10 mg Tablet 10 mg PO QAM Qty: 30 0RF nitroglycerin [Nitrostat] 0.4 mg Tablet, Sublingual 0.4 mg sublingual UD PRN (Reason: chest pain) Qty: 14 0RF magnesium oxide 400 mg (241.3 mg magnesium) Tablet 400 mg PO BID Qty: 60 0RF metoprolol succinate 25 mg tablet extended release 24 hr 12.5 mg PO BID Changed amiodarone 200 mg Tablet 200 mg PO DAILY Qty: 60 0RF Discharge Orders: Discharge Order- CHF (Routine); Ordered 06/27/23 Ordered By: Earline Johnson Admission Data Admit Date/Time: 06/21/23 17:25 Attending Provider: Earline Johnson I. Admit Provider: Bronwyn Hernandez Primary Care Provider: Bob Huynh Other Providers: Bronwyn Hernandez
== END 2023-06-27 17:42 | DRG 242 ==
LOC: ED 14:23 → 2S 17:25 → SUATTDRO 17:25 → 2S 22:50